=== PATIENT | male | born 1960 | race Caucasian/White ===

== ENCOUNTER 2019-01-27 05:49 | Inpatient (IN) | payer BC ==
[~2019-01-27 05:49] MED LIST: Buffered Lidocaine 1% SYRIN* 1 ML/SYRINGE INTRADERM ONE; Tranexamic Acid 1,000 MG in NS 0.9% 50 ML* (outpatient use) IV SCH
--- OUTSIDE RECORDS SUMMARY | 2019-01-27 05:52 | XMS REPORT | Continuity of Care Document ---
:1960 External Reference #:[id number] Author Name Maria G Lara Care Team Providers Name Role Phone Davidson Contreras MD Primary Care Physician Unavailable Payers Date Identification Numbers Payment Provider Subscriber Policy Number: [id number] [facility] Pipo Cardenas PayID: [id number] [address] [address] [place] [address] Advance Directives Description No Information Available Problems Date Description Provider Status Onset: 01/07/2019 Localized, primary osteoarthritis Jean Oliver MD Active Family History Date Family Member(s) Observation Comments General No Current Problems Social History Type Date Description Comments Sex Unknown 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3 kg/m2 Results Description No Information Available Procedures Description No Information Available Encounters Description No Information Available Plan of Treatment Future Appointment(s):02/09/2019 1:30 pm - Jean Oliver MD at [facility]01/07/2019 - Jean Oliver, MDM17.11 Unilateral primary osteoarthritis, right kneeFollow up:Follow up: 1 week before surgery
--- OUTSIDE RECORDS SUMMARY | 2019-01-27 05:52 | XMS REPORT | Continuity of Care Document ---
:1960 External Reference #:[id number] Author Name Jesse Belcher PA-C Address [address], [place] [address] Care Team Providers Name Role Phone Davidson Contreras MD Primary Care Physician Unavailable Payers Date Identification Numbers Payment Provider Subscriber Policy Number: [id number] [facility] Kevin Beck PayID: [id number] [address] [place] [address] Advance Directives Description No Information Available Problems Date Description Provider Status Onset: 01/07/2019 Localized, primary osteoarthritis Jean Oliver MD Active Family History Date Family Member(s) Observation Comments General No Current Problems Social History Type Date Description Comments Sex Unknown 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 Use Denies alcohol use Tobacco Use [...] BMI (Body Mass Index) 27.3 kg/m2 Results Test Date Facility Test Result H/L Range Note CBC Auto Diff 01/15/2019 [facility] White Blood 7.1 10^3/uL N 3.5-10.[address] [place] [address] [phone] Red Blood Count 4.99 10^6/uL N 4.00-5.40 Hemoglobin 15.3 g/dL N 14.0-18.0 Hematocrit 45 % N 42-52 Mean Corpuscular Volume 90 fL N 80-94 Mean Corpuscular Hemoglobin 31 pg N 27-31 Mean Corpuscular HGB Conc 34 g/dL N 31-36 Red Cell Distribution Width 13 % N 10.5-15 Platelet Count 227 10^3/uL N 150-450 Mean Platelet Volume 8.4 fL N 7.4-10.4 Abs Neutrophils 3.9 10^3/uL N 1.5-7.7 Abs Lymphocytes 2.4 10^3/uL N 1.0-4.8 Abs Monocytes 0.6 10^3/uL N 0-0.8 Abs Eosinophils 0.1 10^3/uL N 0-0.6 Abs Basophils 0.1 10^3/uL N 0-0.2 Abs Nucleated RBC 0 10^3/uL Granulocyte % 55.1 % Lymphocyte % 34.0 % Monocyte % 7.9 % Eosinophil % 1.7 % Basophil % 1.3 % Nucleated Red Blood Cells % 0.1 Urinalysis Profile 01/15/2019 [facility] Urine Color Yellow [address] [place] [address] [phone] Urine Appearance Cloudy Urine Specific [place] 1.013 N 1.010-1.030 Urine pH 5.0 N 5-9 Urine Urobilinogen Negative Negative Urine Ketones Negative Negative Urine Protein Negative Negative Urine Leukocytes Negative Negative Urine Blood Negative Negative Urine Nitrite Negative Negative Urine Bilirubin Negative Negative Urine Glucose Negative Negative Comp Metabolic Panel 01/15/2019 [facility] Sodium 139 mmol/L N 135-145 [address] [place] [address] [phone] Potassium 4.3 mmol/L N 3.5-5.0 Chloride 106 mmol/L N 101-111 Co2 Carbon Dioxide 27 mmol/L N 22-32 Anion Gap 6 mmol/L N 2-11 Glucose 95 mg/dL N 70-100 Blood Urea Nitrogen 14 mg/dL N 6-24 Creatinine 0.83 mg/dL N 0.67-1.17 BUN/Creatinine Ratio 16.9 N 8-20 Calcium 10.1 mg/dL N 8.6-10.3 Total Protein 7.1 g/dL N 6.4-8.9 Albumin 4.6 g/dL N 3.2-5.2 Globulin 2.5 g/dL N 2-4 Albumin/Globulin Ratio 1.8 N 1-3 Total Bilirubin 0.70 mg/dL N 0.2-1.0 Alkaline Phosphatase 84 U/L N 34-104 Alt 42 U/L N 7-52 Ast 25 U/L N 13-39 Egfr Non- 95.5 >60 Egfr 115.5 >60 1 Inr/Protime 01/15/2019 [facility] Inr 1.02 N 0.77-1.[address] [place], [place] [id number] [phone] Laboratory test 01/15/2019 [facility] Partial 42.8 seconds High 26.0-36.[address] [place] [address] Time PTT [phone] Type & Screen 01/15/2019 [facility] Patient O Positive [address] Blood Type [place], [place] [address] [phone] Antibody Screen NEGATIVE Urine Culture And 01/15/2019 [facility] Urine Culture SEE RESULT [address] [place] [address] [phone] 1 Because ethnic data is not always readily available, this report includes an eGFR for both -Americans and non- Americans. The National Kidney Disease Education Program (NKDEP) does not endorse the use of the MDRD equation for patients that are not between the ages of 18 and 70, are , have extremes of body size, muscle mass, or nutritional status, or are non- or non-. According to the National Kidney Foundation, irrespective of diagnosis, the stage of the disease is based on the level of kidney function: Stage Description GFR(mL/min/1.73 m(2)) 1 Kidney damage with normal or decreased GFR 90 2 Kidney damage with mild decrease in GFR 60-89 3 Moderate decrease in GFR 30-59 4 Severe decrease in GFR 15-29 5 Kidney failure <15 (or dialysis) 2 SEE RESULT BELOW Name: KEVIN BECK : [address]: Jean Oliver MD Acct: [id number] Unit: [id number] AGE: 58 Location: [facility] Re01/15/19 SEX: M Status: REG REF SPEC: [id number] DELIA: 01/15/19-1010 [facility] DR: Jean Oliver MD REQ: [id number] RECD: 01/15/19 STATUS: JESSICA WHIPPLE DR: Davidson Contreras MD _ SOURCE: URINE SPDESC: ORDERED: Urine Culture QUERIES: Urine Source: Random Procedure Result Reported Site Urine Culture Final 01/16/19- 821 ML No Growth (<1,000 CFU/mL) * - Main Lab . END OF REPORT DEPARTMENT OF PATHOLOGY, [address] [place] [address] Yuan Zendejas M.D. Director [facility] # [id number] Procedures Description No Information Available Encounters Type Date Location Provider Dx Diagnosis Office Visit 01/07/2019 Orthopedic Jean Ch M17.11 Unilateral primary 8:00a [facility] Oliver MD osteoarthritis, right knee Plan of Treatment Future Appointment(s):01/27/2019 7:30 am - Jesse Belcher PA-C at [facility]..01/27/2019 7:30 am - Jean Oliver MD at [facility]..02/09/2019 1:30 pm - Jean Oliver MD at [facility].01/07/2019 - Jean Oliver, MDM17.11 Unilateral primary osteoarthritis, right kneeFollow up:Follow up: 1 week before surgery
--- OUTSIDE RECORDS SUMMARY | 2019-01-27 05:52 | XMS REPORT | Continuity of Care Document ---
:1960 External Reference #:[id number] Author Name Maria G Lara Care Team Providers Name Role Phone Davidson Contreras MD Primary Care Physician Unavailable Payers Date Identification Numbers Payment Provider Subscriber Policy Number: [id number] 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
[2019-01-27] MEDS ORDERED: Dexamethasone IV* 4 MG/ML 1 ML (4 MG) IV SLOW PU ONE (06:00)
[2019-01-27] MEDS ORDERED: Lactated Ringers 1000 ML Bag* 1,000 ML IV SCH (06:00)
[2019-01-27] MEDS ORDERED: Gabapentin CAP(*) 300 MG PO ONE (06:00)
[2019-01-27] MEDS ORDERED: celeCOXIB CAP* 200 MG PO ONE (06:00)
[2019-01-27] MEDS ORDERED: Famotidine IV* 10 MG/ML 2 ML (20 mg) IV ONE (06:00)
[2019-01-27] MEDS ORDERED: Scopolamine 1.5 mg* PATCH TRANSDERM ONE (06:00)
[2019-01-27] MEDS ORDERED: Gabapentin CAP(*) 300 MG ONE (06:03)
[2019-01-27] MEDS ORDERED: ceFAZolin 2 GM PREMIX in ORs 2 GM/50 ML BAG IVPB ONE (06:03)
[2019-01-27] MEDS ORDERED: Dexamethasone IV* 4 MG/ML 1 ML (4 MG) ONE (06:03)
[2019-01-27] MEDS ORDERED: celeCOXIB CAP* 100 MG ONE (06:03)
[2019-01-27] MEDS ORDERED: Scopolamine 1.5 mg* PATCH ONE (06:03)
[2019-01-27] MEDS ORDERED: Famotidine IV* 10 MG/ML 2 ML (20 mg) ONE (06:04)
[2019-01-27] MEDS ORDERED: Buffered Lidocaine 1% SYRIN* 1 ML/SYRINGE INTRADERM ONE (06:04)
[2019-01-27] MEDS ORDERED: Midazolam* 1 MG/ML 2 ML VIAL (2 MG) ONE (07:07)
[2019-01-27] MEDS ORDERED: fentaNYL* 50 MCG/ML 2 ML VIAL (100 MCG VIAL) ONE ×5 (07:07→14:07)
[2019-01-27] MEDS ORDERED: oxyCODONE TAB* 5 MG TAB PO PRN (07:32)
[2019-01-27] MEDS ORDERED: Acetaminophen IV 1GM/100ML * 1,000 MG/100 ML VIAL IVPB ONE (07:32)
[2019-01-27] MEDS ORDERED: PROCHLORPERAZINE INJ 5 MG/ML 2 ML VIAL IV PRN (07:32)
[2019-01-27] MEDS ORDERED: Naloxone* 0.4 MG/ML 1 ML VIAL IV PRN (07:32)
[2019-01-27] MEDS ORDERED: fentaNYL* 50 MCG/ML 2 ML VIAL (100 MCG VIAL) IV PRN (07:32)
[2019-01-27] MEDS ORDERED: Propofol* 10 MG/ML 20 ML BTL ONE (07:38)
[2019-01-27] MEDS ORDERED: Lidocaine 2% PF * 5 ML VIAL ONE (07:38)
[2019-01-27] MEDS ORDERED: ROPIVACAINE 5 MG/ML 30 ML BTL (0.5%) ONE (08:42)
[2019-01-27] MEDS ORDERED: Bupivacaine 0.5% W/EPI SDV* 30 ML VIAL ONE (10:56)
[2019-01-27] MEDS ORDERED: KETAMINE HCL* 50 MG/ML 10 ML VIAL ONE (10:57)
[2019-01-27] MEDS ORDERED: Ondansetron INJ* 2 MG/ML VIAL ONE (12:59)
[2019-01-27] MEDS ORDERED: oxyCODONE/Acetamin 5/325 MG* TAB PO PRN (13:59)
[2019-01-27] MEDS ORDERED: Ondansetron INJ* 2 MG/ML VIAL IV PRN (13:59)
[2019-01-27] MEDS ORDERED: Morphine INJ* 2 MG/ML 1 ML SYRINGE (TWO MG - NEW SYRINGE VERSION) IV PRN (13:59)
[2019-01-27] MEDS ORDERED: traMADol TAB* 50 MG PO PRN (13:59)
[2019-01-27] MEDS ORDERED: Cyclobenzaprine TAB* 10 MG PO PRN (13:59)
[2019-01-27] MEDS ORDERED: Polyethylene Glycol 3350* 17 GM PACKET PO PRN (13:59)
[2019-01-27] MEDS ORDERED: Bisacodyl SUPP* 10 MG SUPP PR PRN (13:59)
[2019-01-27] MEDS ORDERED: Magnesium Hydroxide LIQ* 30 ML UDC PO PRN (13:59)
[2019-01-27] MEDS ORDERED: traZODone TAB* 50 MG TAB PO PRN (13:59)
[2019-01-27] MEDS ORDERED: diPHENhydraMINE IV* 50 MG/ML 1 ml VIAL (BENADRYL) IV PRN (13:59)
[2019-01-27] MEDS ORDERED: diPHENhydraMINE PO* 25 MG PO PRN (13:59)
[2019-01-27] MEDS ORDERED: Ondansetron ODT TAB* 4 MG PO PRN (13:59)
[2019-01-27] MEDS ORDERED: Acetaminophen IV 1GM/100ML * 100 ML ONE (14:07)
[2019-01-27] MEDS ORDERED: oxyCODONE TAB* 5 MG TAB ONE (15:06)
[2019-01-27] MEDS ORDERED: Morphine INJ* 2 MG/ML 1 ML SYRINGE (TWO MG - NEW SYRINGE VERSION) ONE (16:01)
[2019-01-27] MEDS: Lactated Ringers 1000 ML Bag* 1,000 ML IV SCH (16:08)
[2019-01-27] MEDS: Acetaminophen TAB* 325 MG PO SCH ×2 (17:33→20:56)
[2019-01-27] MEDS: oxyCODONE/Acetamin 5/325 MG* TAB PO PRN ×2 (18:11→23:58)
[2019-01-27] MEDS: ceFAZolin 1 GM in Dextrose (*) 1 GM/50 ML BAG IVPB SCH (18:11)
[2019-01-27] MEDS: Docusate CAP* 100 MG PO SCH (20:57)
[2019-01-27] MEDS: oxyCODONE TAB* 5 MG TAB PO PRN (20:57)
[2019-01-28] MEDS: Lactated Ringers 1000 ML Bag* 1,000 ML IV SCH (01:53)
[2019-01-28] MEDS: ceFAZolin 1 GM in Dextrose (*) 1 GM/50 ML BAG IVPB SCH ×2 (01:55→10:05)
[2019-01-28] MEDS: oxyCODONE/Acetamin 5/325 MG* TAB PO PRN ×3 (03:04→12:14)
[2019-01-28] MEDS: Acetaminophen TAB* 325 MG PO SCH ×2 (04:56→14:37)
[2019-01-28 05:39] LABS: Hematocrit 37 % (42-52); Hemoglobin 12.7 g/dl (14.0-18.0); Mean Platelet Volume 8.1 fL (7.4-10.4); Platelet Count 208 10^3/ul (150-450)
[2019-01-28 06:01] LABS: EGFR African American 118.8 (>60); EGFR Non-African American 98.2 (>60); Potassium 4.1 mmol/L (3.5-5.0)
[2019-01-28] MEDS: Docusate CAP* 100 MG PO SCH (07:55)
[2019-01-28] MEDS ORDERED: Vitamin THERAPEUTIC TAB PO SCH (09:00)
[2019-01-28] MEDS ORDERED: Apixaban* 2.5 MG TAB PO SCH (09:00)
[2019-01-28] MEDS: oxyCODONE TAB* 5 MG TAB PO PRN ×2 (10:06→14:34)
--- NOTE | 2019-01-28 10:57 | PN ---
Progress Note - Progress Note Date of Service: 01/28/19 SOAP: Subjective: []Pt seen at bedside. He feels well with well controlled right knee pain, Denies CP, SOB, dizziness or nausea. Confirms desires to DC home today. Objective: []General: Well appearing, NAD RLE: Right knee dressing CDI, thigh is soft, DF/PF intact, DP2+, sensation intact to light touch distally Calves supple and nontender without erythema, edema or palpable cords Assessment: []POD [address] Oliver Plan: []WBAT PT/OT eliquis 2.5 mg po BID x 30 days DC to home today, progressing well with PT Will change dressing prior to DC Vital Signs Temp 98.2 F 01/28/19 07:34 Pulse 72 01/28/19 07:34 Resp 16 01/28/19 10:06 BP 118/62 01/28/19 07:34 Pulse Ox 96 01/28/19 07:34 Intake & Output 01/27/19 01/28/19 01/28/19 18:59 06:59 18:59 Intake Total 1999 1694 720 Output Total 300 3600 Balance 1700 -1906 720 Intake: IV Fluids 1999 980 LR 2000 980 IVPB 54 ABX - CEFAZOLIN 54 Oral 660 720 Output: Baez 300 3600 Laboratory Last Values Hgb 12.7 g/dl (14.0-18.0) L 01/28/19 05:22 Hct 37 % (42-52) L 01/28/19 05:22 Plt Count 208 10^3/ul (150-450) 01/28/19 05:22 MPV 8.1 fL (7.4-10.4) 01/28/19 05:22 APTT 43.7 seconds (26.0-36.3) H 01/27/19 06:21 Sodium 135 mmol/L (135-145) 01/28/19 05:22 Potassium 4.1 mmol/L (3.5-5.0) 01/28/19 05:22 Chloride 103 mmol/L (101-111) 01/28/19 05:22 Carbon Dioxide 26 mmol/L (22-32) 01/28/19 05:22 Anion Gap 6 mmol/L (2-11) 01/28/19 05:22 BUN 13 mg/dL (6-24) 01/28/19 05:22 Creatinine 0.81 mg/dL (0.67-1.17) 01/28/19 05:22 Est GFR ( Amer) 118.8 (>60) 01/28/19 05:22 Est GFR (Non-Af Amer) 98.2 (>60) 01/28/19 05:22 BUN/Creatinine Ratio 16.0 (8-20) 01/28/19 05:22 Glucose 134 mg/dL (70-100) H 01/28/19 05:22 Calcium 9.0 mg/dL (8.6-10.3) 01/28/19 05:22
[2019-01-28 12:40] VITALS: BP 149/73
--- NOTE | 2019-01-28 22:19 | DS ---
AMENDED REPORT NOW INCLUDES DESIGNATED COSIGNER DISCHARGE SUMMARY: DATE OF ADMISSION: 01/27/19 DATE OF DISCHARGE: 01/28/19 SURGEON: Dr. Oliver.* (DICTATED BY ALEM SHAH) HISTORY: Mr. Cardenas is a 58-year-old male with years of increasingly severe right knee pain. He failed conservative management and elected to undergo a right total knee arthroplasty. HOSPITAL COURSE: The patient was admitted to [facility] on . He underwent a right total knee arthroplasty without complications. Postop day #1, he was well appearing, in no acute distress. Dressing was changed. Incision was clean, dry, and intact without erythema or discharge. Dorsiflexion and plantarflexion intact. DP pulse 2+. Sensation intact to light touch distally. Vital signs: Temperature 98.2, pulse 72, respiratory rate 16, blood pressure 118/62, pulse ox 96%. Hemoglobin 12.7, hematocrit 37. The patient was deemed to be medically and orthopedically stable for discharge home. DISCHARGE MEDICATIONS: Include: 1. Acetaminophen 975 mg p.o. q.8 hours p.r.n. 2. Eliquis 2.5 mg p.o. b.i.d. for 30 days. 3. Docusate 100 mg p.o. b.i.d. p.r.n. constipation. 4. Percocet 5/325 one to two tabs every 4 to 6 hours as needed for pain, max daily dose of 10 tablets. DISCHARGE INSTRUCTIONS: The patient is discharged to home. He is weightbearing as tolerated. He will attend outpatient physical therapy. DVT prophylaxis with Eliquis 2.5 mg every 12 hours for 4 weeks. Please see whether Eliquis increases bleeding tendency. Percocet 5/325 for pain. Follow up with Dr. Oliver in 14 to 17 days. Vignesh will be removed at this appointment. ALEM FIELDS [id number]/[facility] #: [id number] MTDD
--- NOTE | 2019-01-29 01:13 | OP ---
OPERATIVE REPORT: DATE OF OPERATION: 01/27/19 DATE OF : 62 SURGEON: Jean Oliver MD ASSISTANTS: 1. ALEM Santamaria 2. Cheryl Bai. A physician digital marketing assistant was required for the length of procedure for assistance with positioning, retraction, and closure. ANESTHESIOLOGIST: Dr. Neetu Joseph. ANESTHESIA: General anesthesia, local anesthesia using 25 cc of Marcaine 0.5% with epinephrine. Regional nerve block as well with adductor canal block performed by Dr. Joseph. PRE-OP DIAGNOSIS: Right knee osteoarthritis. POST-OP DIAGNOSIS: Right knee osteoarthritis. OPERATIVE PROCEDURE: Right total knee arthroplasty. ANTIBIOTICS: Ancef 2 g IV. IV FLUIDS: See Anesthesia note. TOURNIQUET TIME: 120 minutes at 300 mmHg. YVQT-UI-PITD TIME: 130 minutes. SPECIMEN: Bone cuts from tibia, femur and patella sent to Pathology. IMPLANTS: DePuy Richardson and Richardson ATTUNE total knee arthroplasty implants. Cemented. Tibia fixed bearing. Femur size 5, tibia size 4, patella size 38 mm , implant polyethylene 8 mm. I also used cement from [employer], [employer]. COMPLICATIONS: None. ESTIMATED BLOOD LOSS: Minimal. 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 Discussed with the patient pros and cons of operative and nonoperative management, risks and potential complications of surgery. The patient opted to move forward with surgery. DESCRIPTION OF PROCEDURE: In the preoperative holding, the patient signed a written consent. Operative extremities were marked in preoperative holding. Dr. Joseph performed a regional nerve block, adductor canal block in preoperative holding. The patient was taken to the operating room and placed supine on operating room table. Sedated and intubated. Tourniquet was placed about the proximal right thigh. The right lower extremity was prepped with chlorhexidine and then ChloraPrep. It was then draped. A [facility] Knee positioner system was put into place. I should state that before prep and drape, I had placed a blanket bump under the patient's right hemipelvis. Surgical time-out performed. Esmarch applied and tourniquet elevated to 300 mmHg. I made a standard anterior midline longitudinal skin incision. I dissected down to extensor mechanism. Marked extensor mechanism and then made my medial parapatellar arthrotomy incision. I reflected a capsule off the anterior, medial and lateral tibial plateaus. I partially everted the patella. Removed osteophytes with rongeur and removed much of the fat from deep to the patellar tendon. Patella nicely everted. I everted patella and then flexed knee. Removed ACL. I removed some osteophytes with a rongeur from the femur. The patient had significant osteophytes at the medial and lateral femur and cartilage wear was particularly notable about the medial femoral condyle. I noted the position of the PCL and marked my entrance point for femoral drill. I placed the drill to ream and ream the femoral canal. Irrigated and sucked. Placed a distal femoral cutting guide. Removed 9 mm of the distal femur in 5 degrees of valgus. Excellent cut. Sized my distal femur to a size 5, placed 4-in-1 cutting guide and made anteroposterior, anterior chamfer and posterior chamfer cuts. Removed osteophytes with rongeur. I used external tibial alignment guide, set on 7 degrees of posterior slope. I pinned it in place such that I would be removing 4 mm from the low medial compartment side of the knee. Examination of preoperative radiograph and intraoperative findings showed that there was just some mild varus to this knee , not significantly different angulation from anatomic. I placed 3 pins in the tibial cutting guide. Confirmed the adequacy of the guide in the coronal and sagittal planes. I cut the proximal tibia. I removed medial and lateral meniscus after placing laminar spreaders as well as some posterior osteophytes from the femur. I placed a Dogbone spacer. I placed a 6 mm spacer. It showed that the flexion and extension gaps were symmetric. Nice soft tissue balancing. A good alignment of the tibial cut. I placed #5 trial on the femur and drilled the femur. I had also filed on the anterior chamfer cut centrally. I sized tibia to a size 4. Removed osteophytes. Placed guide and then drilled and punched the proximal tibia. Fully extended the knee. Measured the patella to be approximately 23 mm deep. I cut the patella using free hand technique, such that it was 13 mm in depth symmetrically. Measured patella to a 38 mm size. Drilled 3 holes. I confirmed appropriateness of button fit. Removed osteophytes. I trailed components and they showed a stable knee. I irrigated knee. I placed a bone in the femoral canal. Changed gloves. Mixed cement. I placed tibial component, then femoral component with cement. Placed a trial 6 mm insert. I placed the patella button with cement. Waited for cement to fully harden. Irrigated. Trialed several sizes and decided on an 8-mm insert. This produced excellent range of motion 0 to 135 degrees of flexion. Stable ligamentously. No laxity with varus and valgus stress testing in 90 degrees. In 30 degrees of flexion, there was no medial opening. Perhaps 3 mm of lateral opening, appropriate. Irrigation. A closure of the medial parapatellar arthrotomy with figure-of- eight stitches using Ethibond 1 and then Vicryl 0 suture. Irrigation. Closure of deep and then superficial subcutaneous tissue with buried simple stitches using Vicryl 2- 0 suture. Closure of the skin with queta. Local anesthesia was placed. It was first placed with the parapatellar arthrotomy partially closed. Medial lateral and hopefully some posterior capsule. Some additional local was placed in the subcutaneous tissues for a total of 25 cc. Dressings consisted of Xeroform, 4x4s, ABDs, sterile Webril and then Matt bandage from foot to proximal thigh. The tourniquet was dropped in 120 minutes exactly. A cooling unit was placed on the knee. The patient was awakened, extubated and brought to the PACU. DISPOSITION: The patient will be admitted postoperatively for pain control, IV and oral, physical therapy, medical management. He will be discharged home when stable. The patient will be on Eliquis 2.5 mg p.o. b.i.d. x4 weeks postoperatively. He will receive Percocet as needed for pain control at home. He was to receive IV antibiotics, Ancef 1 g IV q.8 hours x24 hours postop. The patient will see me in clinic, approximately 17 days postoperatively for a wound check and removal of queta. The patient will start outpatient physical therapy immediately. [id number]/[facility] #: [id number] ANNE
[2019-01-30] MEDS ORDERED: Scopolamine PATCH Remove* 1 NOTE MISC PATCH OFF ONE (06:00)
== END 2019-01-28 14:45 | disposition home or self-care (01) | DRG 302 ==
LOC: AA 05:49 → SSU 15:37
PROVIDERS: ADMIT Orthopaedic Surgery; ATTEND Orthopaedic Surgery
PROC: 0SRC0J9 Replacement of Right Knee Joint with Synthetic Substitute, Cemented, Open Approach (ICD-10-PCS; principal; 2019-01-27 07:30)
DX: M17.0 Bilateral primary osteoarthritis of knee (principal); M25.761 Osteophyte, right knee; E04.1 Nontoxic single thyroid nodule; R25.1 Tremor, unspecified; Z81.2 Family history of tobacco abuse and dependence; Z82.5 Family history of asthma and other chronic lower respiratory diseases; Z80.1 Family history of malignant neoplasm of trachea, bronchus and lung
CPT/HCPCS: 36415; 80048; 85014; 85018; 85049; 85730; A9270-GY; G8978-GP-CK; G8979-GP-CI; J0690; J1100; J2250; J2270; J2405; J2704; J2795; J3010

== ENCOUNTER 2019-04-14 05:52 | Day surgery (SDC) | payer BC ==
[~2019-04-14 05:52] MED LIST changes: -Tranexamic Acid 1,000 MG in NS 0.9% 50 ML* (outpatient use) IV SCH
[2019-04-14] MEDS ORDERED: Lactated Ringers 1000 ML Bag* 1,000 ML IV SCH (06:00)
[2019-04-14] MEDS ORDERED: Buffered Lidocaine 1% SYRIN* 1 ML/SYRINGE INTRADERM ONE (06:08)
[2019-04-14] MEDS ORDERED: Propofol* 10 MG/ML 20 ML BTL ONE ×2 (06:41)
[2019-04-14] MEDS ORDERED: Lidocaine 2% PF * 5 ML VIAL ONE ×2 (06:41→06:46)
[2019-04-14] MEDS ORDERED: ROPIVACAINE 5 MG/ML 30 ML BTL (0.5%) ONE (06:46)
[2019-04-14] MEDS ORDERED: Midazolam* 1 MG/ML 2 ML VIAL (2 MG) ONE (06:47)
[2019-04-14] MEDS ORDERED: fentaNYL* 50 MCG/ML 2 ML VIAL (100 MCG VIAL) ONE ×2 (06:47→08:19)
[2019-04-14] MEDS ORDERED: Bupivacaine 0.5% W/EPI SDV* 30 ML VIAL ONE (06:53)
[2019-04-14] MEDS ORDERED: Ketorolac INJ* 30 MG/ML 1 ML VIAL ONE (07:35)
[2019-04-14] MEDS ORDERED: Dexamethasone IV* 4 MG/ML 1 ML (4 MG) ONE (07:35)
[2019-04-14] MEDS ORDERED: Ondansetron INJ* 2 MG/ML VIAL ONE (07:35)
[2019-04-14] MEDS ORDERED: Acetaminophen TAB* 325 MG PO PRN (08:06)
[2019-04-14] MEDS ORDERED: Naloxone* 0.4 MG/ML 1 ML VIAL IV PRN (08:06)
[2019-04-14] MEDS: fentaNYL* 50 MCG/ML 2 ML VIAL (100 MCG VIAL) IV PRN ×4 (08:20→08:38)
[2019-04-14] MEDS ORDERED: oxyCODONE/Acetamin 5/325 MG* TAB ONE (08:33)
[2019-04-14] MEDS ORDERED: Acetaminophen TAB* 325 MG ONE (09:11)
[2019-04-14 09:17] VITALS: BP 144/88
--- NOTE | 2019-04-14 23:47 | OP ---
OPERATIVE REPORT: DATE OF OPERATION: 04/14/19 DATE OF : 62 SURGEON: Jean Oliver MD UPPER AND BOTTOM LACER HAND: ALEM Santamaria A physician family practice physician assistant was required for the length of this procedure for assistance with patient posit ioning. ANESTHESIOLOGIST: Dr. Marcela Magdaleno. ANESTHESIA: Monitored anesthesia care, saphenous regional nerve block. PRE-OP DIAGNOSES: 1. Status post right total knee arthroplasty, 01/27/19. 2. Stiff arthrofibrotic right total knee arthroplasty. POST-OP DIAGNOSES: 1. Status post right total knee arthroplasty, 01/27/19. 2. Stiff arthrofibrotic right total knee arthroplasty. OPERATIVE PROCEDURE: Manipulation under anesthesia, right total knee arthroplasty. ANTIBIOTICS: None. IV FLUIDS: See Anesthesia note. TIME OF PROCEDURE: 11 minutes. 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 Preoperatively, his passive ra nge of motion was 0 to 135 degrees of flexion. Postoperatively, the patient was slow to regain range of motion. He admits that early in the postope rative course, he was not doing much in the way of exercises or physical therapy. The patient may gaytan ve purposely avoided taking much in the way of narcotics leading to some more limited activity. The patient was noted to have slightly decreased range of motion at his 2-week clinic visit, which did no t improve significantly at his 6 weeks' clinic visit, causing concern on my part. I spoke extensivel y with the patient's physical therapist and the patient tried very hard in physical therapy to improv e his range of motion without significant success. See my history and physical for full history. Th e patient opted for manipulation. Discussed risks and potential complications with him. DESCRIPTION OF PROCEDURE: In the preoperative holding, the patient signed a written consent. Operat chaya extremity was marked in preoperative holding. The patient underwent a saphenous nerve block by Dr. Magdaleno in preoperative holding. The patient wa s taken back to the operating room and placed supine on operating room table. The patient was sedate d. The patient started out as monitored anesthesia care, although an LMA may have been placed. The patient was relaxed during this procedure prior to my manipulation. Surgical time-out performed. Prior to manipulating the patient's right knee, I obtained a range of motion. With an family practice physician assistant hold ing up the lower leg, I found that the extension of the right knee was 8 degrees shy of full extensio n, so he had an 8-degree flexion contracture. When I flexed the hip to 90 degrees and allowed the kne e to flex with the benefit of gravity, the flexion was 70 degrees. This put the patient's range of m otion without any manipulation, without any force, to be 8 to 70 degrees of flexion. I next performed manipulation. I flexed the hip to 90 degrees. The several different techniques, we ll described. These were done safely to minimize the risk of fracture. I then again measured with a goniometer post-manipulation ranges of motion. The range of motion clearly met 0 degrees of flexion before full extension of the knee. Then, with the knee flexed only with the force of gravity, I shannon sured the knee flexion to be 112 degrees. This was less than the contralateral left knee, but still substantial. With some zanzv-ze-mgexlo passive pressure from the knee, I was able to easily flex the knee to 0 to 138 degrees of flexion. It should be noted that with more significant manipulation, I could certainly flex the knee past 140 degrees and get the heel to touch the buttock. When I did my manipulation, there was the audible and palpable breaking up of scar tissue. There was no audible or palpable concern about a fracture. Anesthesia had relaxed the patient just prior to my manipulating. For a summary, pre-manipulation, the patient's range of motion with gravity was 8 to 70 degrees of fl exion. Post-manipulation, range of motion to gravity was 0 to 112 degrees of flexion. With some mil d help, with passive range of motion, the patient's post-manipulation range of motion was 0 to 138 de grees of flexion. The patient was transferred back to the stretcher, lightened up sedation, and transferred to the PACU . It should be noted that in the operating room, the patient received a dose of Toradol, Tylenol as wel l as Decadron. DISPOSITION: At my request, the patient had scheduled outpatient physical therapy on the day of surg brayden, postoperative day 1 and postoperative day 2. I prescribed the patient a new Percocet prescripti on as well as a Medrol Dosepak. I instructed the patient to resume naproxen after he finishes the Me drol Dosepak. I imparted the patient and his the importance of aggressive early constant range of motion to maintain the gains we accomplished during this operative procedure. The patient will fo llow up with me in approximately 1 week postoperatively in clinic. It will really be more like 4 to 5 days postoperatively. [id number]/[facility] #: [id number]
== END 2019-04-14 09:19 | disposition home or self-care (01) ==
LOC: OR 05:52
PROVIDERS: ATTEND Orthopaedic Surgery
DX: T84.82XA Fibrosis due to internal orthopedic prosthetic devices, implants and grafts, initial encounter (principal); Z96.651 Presence of right artificial knee joint; G89.18 Other acute postprocedural pain; M17.0 Bilateral primary osteoarthritis of knee
CPT/HCPCS: A9270-GY; J1100; J1885; J2250; J2405; J2704; J2795; J3010

== ENCOUNTER 2019-04-18 23:36 | Emergency (ER) | payer BC ==
--- OUTSIDE RECORDS SUMMARY | 2019-04-18 23:48 | XMS REPORT | Continuity of Care Document ---
:1960 External Reference #:[id number] Author Name SaiJolene chua Care Team Providers Name Role Phone Davidson Contreras MD Primary Care Physician Unavailable Payers Date Identification Numbers Payment Provider Subscriber Policy Number: [id number] [facility] Kevin Beck PayID: [id number] [address] [address] [place] [address] Problems Active Problems Provider Date Localized, primary osteoarthritis Jean Oliver MD Onset: 01/07/2019 Family History Date Family Member(s) Observation Comments General No Current Problems Social History Type Date Description Comments Sex Unknown Lives With 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 ETOH Use Denies alcohol use Tobacco Use Start: Unknown Patient has never smoked Smoking Status Reviewed: 04/08/19 Patient has never smoked Exercise Type/Frequency Exercises sporadically Allergies, Adverse Reactions, Alerts Description No Known Drug Allergies Medications Active Medications SIG Qnty Indications Ordering Provider Date Naproxen 1 by mouth twice 60tabs [facility] 03/16/2019 500mg Tablets a day as needed MD Melody pain History Medications Colace 1 tab every 12 hours 90caps [facility] 01/28/2019 - 100mg Capsules as needed for MD Melody 03/15/2019 constipation Eliquis 1 tab by mouth every 60tabs Jean 01/28/2019 - 2.5mg Tablets 12 hours for 30 days MD Melody 03/15/2019 Oxycodone-Acetaminop 1 by mouth every 4-6 60tabs [facility] 01/28/2019 - hen hours as needed for MD Melody 04/07/2019 5-325mg Tablets post-op pain. No Active Unknown 01/07/2019 - Medications 01/28/2019 Medications Administered in Office Medication SIG Qnty Indications Ordering Provider Date Depomedrol 40MG Jean Oliver MD 03/16/2019 Injection Vital Signs Date Vital Result Comment 04/08/2019 8:11am Height 69 inches 5'9" Weight 190.00 lb Heart Rate 70 /min BP Systolic 128 mmHg BP Diastolic 74 mmHg Respiratory Rate 12 /min Pain Level 0 Increases with activity BMI (Body Mass Index) 28.1 kg/m2 03/16/2019 8:15am Height 69 inches 5'9" Weight 190.00 lb Heart Rate 70 /min BP Systolic 124 mmHg BP Diastolic 70 mmHg Respiratory Rate 12 /min Pain Level 0 BMI (Body Mass Index) 28.1 kg/m2 02/09/2019 1:28pm Height 69 inches 5'9" Weight 191.00 lb BP Systolic 120 mmHg BP Diastolic 64 mmHg Body Temperature 98.7 F Pain Level 2 BMI (Body Mass Index) 28.2 kg/m2 01/07/2019 8:26am Height 69 inches 5'9" Weight 185.00 lb Heart Rate 73 /min BP Systolic 120 mmHg BP Diastolic 78 mmHg Respiratory Rate 18 /min Body Temperature 98.0 F Pain Level 6 BMI (Body Mass Index) 27.3 kg/m2 Results Test Date Facility Test Result H/L Range Note Xray 03/16/2019 [facility] Knee 3 Views <pending> [address] [place] [address] [phone] CBC Auto Diff 01/15/2019 [facility] White Blood 7.1 10^3/uL N 3.5-10.[address] [place] [address] [phone] Red Blood Count 4.99 10^6/uL N 4.00-5.40 [...] Blood Cells % 0.1 Urinalysis Profile 01/15/2019 [facility] Urine Color Yellow [address] [place] [address] [phone] Urine Appearance Cloudy Urine Specific Cascade 1.013 N 1.010-1.030 Urine pH 5.0 N 5-9 Urine Urobilinogen Negative Negative Urine Ketones Negative Negative Urine Protein Negative Negative Urine Leukocytes Negative Negative Urine Blood Negative Negative Urine Nitrite Negative Negative Urine Bilirubin Negative Negative Urine Glucose Negative Negative Comp Metabolic Panel 01/15/2019 [facility] Sodium 139 mmol/L N 135-145 [address] [place] [address] [phone] Potassium 4.3 mmol/L N 3.5-5.0 Chloride 106 [...] >60 Egfr 115.5 >60 1 Inr/Protime 01/15/2019 [facility] Inr 1.02 N 0.77-1.02 [address] [place] [address] [phone] Laboratory test 01/15/2019 [facility] Partial 42.8 seconds High 26.0-36.[address] [place] [address] Time PTT [phone] Type & Screen 01/15/2019 [facility] Patient O Positive [address] Blood Type [place], [place] [id number] [phone] Antibody Screen NEGATIVE Urine Culture And 01/15/2019 [facility] Urine Culture SEE RESULT [address] [place] [address] [phone] 1 Because ethnic data is not always [...] [address]: Jean Oliver MD Acct: [id number] Unit: [id number] AGE: 58 Location: [facility] Re01/15/19 SEX: M Status: REG REF SPEC: [id number] DELIA: 01/15/19-1010 [facility] DR: Jean Oliver MD REQ: [id number] RECD: 01/15/19 STATUS: JESSICA WHIPPLE DR: Davidson Contreras MD _ SOURCE: URINE SPDESC: ORDERED: Urine Culture QUERIES: Urine Source: Random Procedure Result Reported Site Urine Culture Final 01/16/19- 821 ML No Growth (<1,000 CFU/mL) * ML - Main Lab . END OF REPORT DEPARTMENT OF PATHOLOGY, [address] [place] [address] Yuan Zendejas M.D. Director [facility] # [id number] Procedures Date Code Description Status 03/16/2019 27097 Inject/Drain Joint/Bursa Major W/O US Completed 01/27/2019 26973 TKR Total Knee Replacement Completed 01/27/2019 50321 TKR Total Knee Replacement Completed 01/15/2019 47471 EKG, Interpretation Only Completed Encounters Type Date Location Provider Dx Diagnosis Office Visit 01/07/2019 [facility] M17.11 Unilateral primary 8:[facility] Oliver MD osteoarthritis, right knee
[2019-04-19] MEDS ORDERED: NS 0.9% 1000 ML** 1,000 ML IV ONE (00:52)
[2019-04-19] MEDS ORDERED: Metoclopramide IV* 5 MG/ML 2 ML VIAL IV SLOW PU ONE (00:52)
[2019-04-19] MEDS ORDERED: Ketorolac INJ* 30 MG/ML 1 ML VIAL IV PUSH ONE (00:53)
[2019-04-19 01:40] LABS: ABS Basophils 0.1 10^3/ul (0-0.2); ABS Lymphocytes 1.6 10^3/ul (1.0-4.8); ABS Monocytes 1.3 10^3/ul (0-0.8); ABS Neutrophils 13.1 10^3/ul (1.5-7.7); Eosinophil % 0.2 %; Hematocrit 41 % (42-52); Hemoglobin 14.1 g/dL (14.0-18.0); Lymphocyte % 9.7 %; Mean Corpuscular HGB Conc 34 g/dL (31-36); Mean Corpuscular Hemoglobin 30 pg (27-31); Mean Corpuscular Volume 86 fL (80-94); Mean Platelet Volume 7.9 fL (7.4-10.4); Platelet Count 279 10^3/uL (150-450); Red Cell Distribution Width 14 % (10.5-15); White Blood Count 16.1 10^3/uL (3.5-10.8)
[2019-04-19 01:59] LABS: Albumin 4.2 g/dL (3.2-5.2); Albumin/Globulin Ratio 1.4 (1-3); BUN/Creatinine Ratio 21.3 (8-20); C Reactive Protein 11.03 mg/L (<8.01); Calcium 9.6 mg/dL (8.6-10.3); EGFR African American 129.9 (>60); EGFR Non-African American 107.3 (>60); Globulin 2.9 g/dL (2-4); Potassium 3.8 mmol/L (3.5-5.0); Total Bilirubin 1.2 mg/dL (0.2-1.0); Total Protein 7.1 g/dL (6.4-8.9)
[2019-04-19] MEDS ORDERED: Iohexol 300* (CONTRAST) 10 ML SDV IV ONE (02:11)
--- NOTE | 2019-04-19 04:20 | ED ---
GI/ HPI - HPI Summary HPI Summary: Patient is a 58 y/o M presenting to ED with complaints of abdominal pain, N/V, constipation for the past four days. He states that he had right knee surgery four days ago in the morning, was discharged to home the same day. Sx onset in the evening of the same day. He states that after being discharged, he had been taking oxycodone for pain, switched to tramadol two days ago. However, he denies taking any pain medications recently. On triage, pain is rated 7/10, nothing is noted to aggravate/alleviate Sx. Home medications and allergies are reviewed. - History of Current Complaint Chief Complaint: EDAbdPain Time Seen by Provider: 04/19/19 00:37 Stated Complaint: ABD PAIN/VOMITING PER PT Hx Obtained From: Patient Onset/Duration: Started Days Ago - four days ago, Still Present Timing: Constant, Lasting Days - four days ago Severity: Severe Current Severity: Severe Pain Intensity: 7 Associated Signs and Symptoms: Positive: Nausea, Vomiting, Constipation, Abdominal Pain Aggravating Factor(s): Nothing Alleviating Factor(s): Nothing - Additional Pertinent History Primary Care Physician: TADEO - Allergy/Home Medications Allergies/Adverse Reactions: Allergies Allergy/AdvReac Type Severity Reaction Status Date / Time No Known Allergies Allergy Verified 04/18/19 23:40 PMH/Surg Hx/FS Hx/Imm Hx Musculoskeletal History: Reports: Hx Arthritis - osteoarthritis, bone spurs in left knees Sensory History: Reports: Hx Contacts or Glasses - glasses Denies: Hx Hearing Aid Opthamlomology History: Reports: Hx Contacts or Glasses - glasses - Cancer History Hx Chemotherapy: No - Surgical History Surgery Procedure, Year, and Place: 01/2019 right total knee replacement Hx Anesthesia Reactions: No Infectious Disease History: No Infectious Disease History: Denies: Traveled Outside the [place] in Last 30 Days - Family History Known Family History: Positive: Renal Disease - asthma - Social History Alcohol Use: Occasionally Substance Use Type: Reports: None Smoking Status (MU): Never Smoked Tobacco Review of Systems Negative: Fever - ON VITALS, TEMP IS 98.2 F Gastrointestinal: Other - POSITIVE - CONSTIPATION Positive: Abdominal Pain, Vomiting, Nausea All Other Systems Reviewed And Are Negative: Yes Physical Exam - Summary Physical Exam Summary: VITAL SIGNS: Reviewed. GENERAL: Patient is a well-developed and nourished male who is lying comfortable in the stretcher. Patient is not in any acute respiratory distress. HEAD AND FACE: No signs of trauma. No ecchymosis, hematomas or skull depressions. No sinus tenderness. EYES: PERRLA, EOMI x 2, No injected conjunctiva, no nystagmus. EARS: Hearing grossly intact. Ear canals and tympanic membranes are within normal limits. MOUTH: Oropharynx within normal limits. NECK: Supple, trachea is midline, no adenopathy, no JVD, no carotid bruit, no c- spine tenderness, neck with full ROM CHEST: Symmetric, no tenderness at palpation LUNGS: Clear to auscultation bilaterally. No wheezing or crackles. CVS: Regular rate and rhythm, S1 and S2 present, no murmurs or gallops appreciated. ABDOMEN: Soft, mild diffuse tenderness. No signs of distention. No rebound no guarding, and no masses palpated. Bowel sounds are hypoactive. EXTREMITIES: FROM in all major joints, no edema, no cyanosis or clubbing. NEURO: Alert and oriented x 3. No acute neurological deficits. Speech is normal and follows commands. SKIN: Dry and warm Triage Information Reviewed: Yes Vital Signs On Initial Exam: Initial Vitals Temp Pulse Resp BP Pulse Ox 98.2 F 62 16 161/96 97 04/18/19 23:38 04/18/19 23:38 04/18/19 23:38 04/18/19 23:38 04/18/19 23:38 Vital Signs Reviewed: Yes Diagnostics - Vital Signs Vital Signs Temp Pulse Resp BP Pulse Ox 04/19/19 02:00 68 94 04/19/19 01:01 76 81 04/19/19 00:59 58 161/84 80 04/19/19 00:30 51 138/85 95 04/19/19 00:28 64 96 04/18/19 23:38 98.2 F 62 16 161/96 97 - Laboratory Lab Results: Lab Results 04/19/19 04/19/19 04/19/19 Range/Units 01:26 01:27 01:27 WBC 16.1 H (3.5-10.8) 10^3/uL RBC 4.80 (4.18-5.48) 10^6 /uL Hgb 14.1 (14.0-18.0) g/dL Hct 41 L (42-52) % MCV 86 (80-94) fL MCH 30 (27-31) pg MCHC 34 (31-36) g/dL RDW 14 (10.5-15) % Plt Count 279 (150-450) 10^3/uL MPV 7.9 (7.4-10.4) fL Neut % (Auto) 81.2 % Lymph % (Auto) 9.7 % Juab % (Auto) 8.3 % Eos % (Auto) 0.2 % Baso % (Auto) 0.6 % Absolute Neuts (auto) 13.1 H (1.5-7.7) 10^3/ul Absolute Lymphs (auto) 1.6 (1.0-4.8) 10^3/ul Absolute Monos (auto) 1.3 H (0-0.8) 10^3/ul Absolute Eos (auto) 0.0 (0-0.6) 10^3/ul Absolute Basos (auto) 0.1 (0-0.2) 10^3/ul Absolute Nucleated RBC 0.0 10^3/ul Nucleated RBC % 0.0 Sodium 134 L (135-145) mmol/L Potassium 3.8 (3.5-5.0) mmol/L Chloride 99 L (101-111) mmol/L Carbon Dioxide 26 (22-32) mmol/L Anion Gap 9 (2-11) mmol/L BUN 16 (6-24) mg/dL Creatinine 0.75 (0.67-1.17) mg/dL Est GFR ( Amer) 129.9 (>60) Est GFR (Non-Af Amer) 107.3 (>60) BUN/Creatinine Ratio 21.3 H (8-20) Glucose 145 H (70-100) mg/dL Lactic Acid 0.8 (0.5-2.0) mmol/L Calcium 9.6 (8.6-10.3) mg/dL Magnesium 2.0 (1.9-2.7) mg/dL Total Bilirubin 1.20 H (0.2-1.0) mg/dL AST 12 L (13-39) U/L ALT 23 (7-52) U/L Alkaline Phosphatase 84 (34-104) U/L C-Reactive Protein 11.03 H (<8.01) mg/L Total Protein 7.1 (6.4-8.9) g/dL Albumin 4.2 (3.2-5.2) g/dL Globulin 2.9 (2-4) g/dL Albumin/Globulin Ratio 1.4 (1-3) Amylase 36 (29-103) U/L Lipase 13 (11.0-82.0) U/L Result Diagrams: 04/19/19 01:27 04/19/19 01:27 Lab Statement: Any lab studies that have been ordered have been reviewed, and results considered in the medical decision making process. - CT ABD/PEL CT CT Interpretation Completed By: Radiologist Summary of CT Findings: IMPRESSION: 1. There is mild wall thickening in the duodenum, cannot exclude mild. duodenitis. 2. There is colonic diverticulosis without evidence for acute diverticulitis. THIS REPORT WAS REVIEWED BY DR. ETIENNE. BONNIE Course/Dx - Course Course Of Treatment: Patient is a 58 y/o M presenting to ED with complaints of abdominal pain, N/V, constipation for the past four days. He states that he had right knee surgery four days ago in the morning, was discharged to home the same day. Sx onset in the evening of the same day. He states that after being discharged, he had been taking oxycodone for pain, switched to tramadol two days ago. However, he denies taking any pain medications recently. On physical exam, mild diffuse abdominal tenderness and hypoactive bowel sounds are noted. Labs showed WBC 16.1, Hct 41, absolute neuts 13.1, absolute monos 1.3, sodium 134, chloride 99, BUN/creatinine ratio 21.3, glucose 145, lactic acid 0.8, total bilirubin 1.2, CRP 11.03, lipase 13, amylase 36, AST 12, ALT 23, alk phos 84. During ED course, patient received fluids, reglan 10 mg IV, toradol [address] ABD/PEL IMPRESSION: 1. There is mild wall thickening in the duodenum, cannot exclude mild. duodenitis. 2. There is colonic diverticulosis without evidence for acute diverticulitis. - Diagnoses Provider Diagnoses: Constipation, Duodenitis Discharge - Sign-Out/Discharge Documenting (check all that apply): Patient Departure - discharge Patient Received Moderate/Deep Sedation with Procedure: No - Discharge Plan Condition: Stable Disposition: HOME Prescriptions: Metoclopramide TAB* [Reglan TAB*] 10 mg PO Q6H PRN #20 tab PRN Reason: Nausea/Vomiting Pantoprazole TAB * [Protonix TAB*] 40 mg PO DAILY #30 tab Patient Education Materials: Constipation (ED), Duodenitis (ED) Referrals: Davidson Contreras MD [Primary Care Provider] - 3 Days Additional Instructions: PLEASE RETURN TO THE ED IMMEDIATELY FOR WORSENING OR CONCERNING SYMPTOMS. FOLLOW UP WITH YOUR PRIMARY CARE PHYSICIAN WITHIN THREE DAYS. - Billing Disposition and Condition Condition: STABLE Disposition: Home - Attestation Statements Document Initiated by Bijal: Yes Documenting Scribe: MONTANA HAYES Provider For Whom Juanibsunshine is Documenting (Include Credential): MELVA ETIENNE MD Scribe Attestation: MONTANA Randhawa, scribed for MELVA ETIENNE MD on 04/19/19 at 0615. Scribe Documentation Reviewed: Yes Provider Attestation: The documentation as recorded by the MONTANA capellan accurately reflects the service I personally performed and the decisions made by me, MELVA ETIENNE MD Status of Scribe Document: Viewed
[2019-04-19 04:47] LABS: Urine Appearance Clear; Urine Bilirubin Negative (Negative); Urine Blood Negative (Negative); Urine Color Yellow; Urine Glucose Negative (Negative); Urine Ketones 1+ (Negative); Urine Nitrite Negative (Negative); Urine Protein Negative (Negative); Urine Specific Gravity 1.047 (1.010-1.030); Urine Urobilinogen Negative (Negative)
[2019-04-19] MEDS ORDERED: Bisacodyl SUPP* 10 MG SUPP PR ONE (04:48)
[2019-04-19] MEDS ORDERED: Magnesium CITRATE* 300 ML BTL PO ONE (04:48)
[2019-04-19 05:05] VITALS: BP 138/84
== END 2019-04-19 05:04 | disposition home or self-care (01) ==
LOC: ED 23:36
DX: K59.00 Constipation, unspecified (principal); K29.80 Duodenitis without bleeding; K57.30 Diverticulosis of large intestine without perforation or abscess without bleeding; R11.2 Nausea with vomiting, unspecified; Z96.651 Presence of right artificial knee joint
CPT/HCPCS: 36415; 74177; 80053; 81003; 82150; 83605; 83690; 83735; 85025; 86140; 96361; 96374; 96375; 99283; A9270-GY; J1885; J2765; Q9967

== ENCOUNTER 2019-05-09 11:14 | Emergency (ER) | payer BC ==
--- OUTSIDE RECORDS SUMMARY | 2019-05-09 11:31 | XMS REPORT | Continuity of Care Document ---
:1960 External Reference #:[id number] Author Name RejiTiagorory Care Team Providers Name Role Phone Davidson Contreras MD Primary Care Physician Unavailable Payers Date Identification Numbers Payment Provider Subscriber Policy Number: [id number] [facility] Kevin Beck PayID: [id number] [address] [address] [place] [address] Problems Active Problems Provider Date Localized, primary osteoarthritis Jean Oliver MD Onset: 01/07/2019 Aftercare following joint replacement Jean Oliver MD Onset: 2018 surgery Knee stiff Jean Oliver MD Onset: 05/06/2019 Family History Date Family Member(s) Observation Comments General No Current Problems Social History Type Date Description Comments Sex Unknown Lives With Spouse 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 ETOH Use Denies alcohol use Tobacco Use Start: Unknown Patient has never smoked Smoking Status Reviewed: 05/06/19 Patient has never smoked Exercise Type/Frequency Exercises sporadically Allergies, Adverse Reactions, Alerts Description No Known Drug Allergies Medications Active Medications SIG Qnty Indications Ordering Date Provider Methylprednisolone take medrol dose 1units Z47.1 Jean 04/27/2019 4mg TBPK pack as directed MD Melody Tylenol 8 Hour Take one tab by 60tabs Jean 04/20/2019 650mg Tablets mouth q4h MD Melody ER Ondansetron take 1 every 8 30tabs Deborah Petersen 04/16/2019 8mg Tablets hours as needed MD Dispers nausea Tramadol HCL 1 tablet by mouth 30tabs Jean 04/16/2019 50mg Tablets every 6 hours as MD Melody needed pain Oxycodone-Acetaminophen 1-2 tas by mouth 60tabs [facility] 04/13/2019 every 4-6 hours as MD Melody 5-325mg Tablets needed for post-op pain. Medrol take as directed 21tabs [facility] 04/13/2019 4mg Tablets per dosepak MD Melody instructions Naproxen 1 by mouth twice a 60tabs [facility] 03/16/2019 500mg Tablets day as needed MD Melody pain. Do not take while on the medrol dosepak History Medications Colace 1 tab every 12 hours 90caps [facility] 01/28/2019 - 100mg Capsules as needed for MD Melody 03/15/2019 constipation Eliquis 1 tab by mouth every 60tabs [facility] 01/28/2019 - 2.5mg Tablets 12 hours for 30 days MD Melody 03/15/2019 Oxycodone-Acetaminop 1 by mouth every 4-6 60tabs [facility] 01/28/2019 - hen hours as needed for MD Melody 04/07/2019 5-325mg Tablets post-op pain. No Active Unknown 01/07/2019 - Medications 01/28/2019 Medications Administered in Office Medication SIG Qnty Indications Ordering Provider Date Depomedrol 40MG Jean Dima Oliver MD 03/16/2019 Injection Vital Signs Date Vital Result Comment 05/06/2019 9:00am Height 69 inches 5'9" Heart Rate 68 /min BP Systolic 110 mmHg BP Diastolic 70 mmHg Respiratory Rate 18 /min Body Temperature 98.1 F Pain Level 4 04/27/2019 8:47am Height 69 inches 5'9" Weight 186.00 lb Heart Rate 68 /min BP Systolic Sitting 120 mmHg BP Diastolic Sitting 82 mmHg Body Temperature 97.7 F Pain Level 0 BMI (Body Mass Index) 27.5 kg/m2 04/20/2019 8:19am Height 69 inches 5'9" Weight 190.00 lb Heart Rate 72 /min BP Systolic 128 mmHg BP Diastolic 78 mmHg Respiratory Rate 12 /min Pain Level 0 BMI (Body Mass Index) 28.1 kg/m2 04/08/2019 8:11am Height 69 inches 5'9" Weight [...] Test Result H/L Range Note Xray 03/16/2019 [facility] Knee 3 Views <pending> [address] [place] [address] [phone] CBC Auto Diff 01/15/2019 [facility] White Blood 7.1 10^3/uL N 3.5-10.[address] Count [place], [place] [id number] [phone] Red Blood Count 4.99 10^6/uL N 4.00-5.40 [...] Blood Cells % 0.1 Urinalysis Profile 01/15/2019 [facility] Urine Color Yellow [address] [place] [address] [phone] Urine Appearance Cloudy Urine Specific [place] 1.013 N 1.010-1.030 Urine pH 5.0 N 5-9 Urine Urobilinogen Negative Negative Urine Ketones Negative Negative Urine Protein Negative Negative Urine Leukocytes Negative Negative Urine Blood Negative Negative Urine Nitrite Negative Negative Urine Bilirubin Negative Negative Urine Glucose Negative Negative Comp Metabolic Panel 01/15/2019 [facility] Sodium 139 mmol/L N 135-145 [address] [place] [address] [phone] Potassium 4.3 mmol/L N 3.5-5.0 Chloride 106 [...] >60 Egfr 115.5 >60 1 Inr/Protime 01/15/2019 [facility] Inr 1.02 N 0.77-1.02 [address] [place] [address] [phone] Laboratory test 01/15/2019 [facility] Partial 42.8 seconds High 26.0-36.[address] [address] Time PTT [phone] Type & Screen 01/15/2019 [facility] Patient O Positive [address] [place] [address] [phone] Antibody Screen NEGATIVE Urine Culture And 01/15/2019 [facility] Urine Culture SEE RESULT [address] [place] [address] [phone] 1 Because ethnic data is not always [...] [address]: Jean Oliver MD Acct: [id number] Unit: [id number] AGE: 58 Location: [facility] Re01/15/19 SEX: M Status: REG REF SPEC: [id number] DELIA: 01/15/19-[address]: Jean Oliver MD REQ: [id number] RECD: 01/15/19 STATUS: JESSICA WHIPPLE DR: Davidson Contreras MD _ SOURCE: URINE SPDES: ORDERED: Urine Culture QUERIES: Urine Source: Random Procedure Result Reported Site Urine Culture Final 01/16/19821 ML No Growth (<1,000 CFU/mL) * ML - Main Lab . END OF REPORT DEPARTMENT OF PATHOLOGY, [address] [place] [address] Yuan Zendejas M.D. Director [facility] # [id number] Procedures Date Code Description Status 04/14/2019 27665 Manipulation Knee Under Generl Anesth. Incl Application Completed Traction 04/14/2019 24839 Manipulation Knee Under Generl Anesth. Incl Application Completed Traction 03/16/2019 07937 Inject/Drain Joint/Bursa Major W/O US Completed 01/27/2019 52726 TKR Total Knee Replacement Completed 01/27/2019 97967 TKR Total Knee Replacement Completed 01/15/2019 69644 EKG, Interpretation Only Completed Encounters Type Date Location Provider Dx Diagnosis Office Visit 01/07/2019 [facility] Jean Ch M17.11 Unilateral primary 8:00[facility] Oliver MD osteoarthritis, right knee Plan of Treatment 05/06/2019 - Jean Oliver MDZ47.1 Aftercare following joint replacement surgeryFollow up:Follow up: Follow up 2 wzhyaJ53.661 Stiffness of right knee, not elsewhere classified
--- OUTSIDE RECORDS SUMMARY | 2019-05-09 11:31 | XMS REPORT | Continuity of Care Document ---
:1960 External Reference #:[id number] Author Name RejiTiagorory Care Team Providers Name Role Phone Davidson Contreras MD Primary Care Physician Unavailable Payers Date Identification Numbers Payment Provider Subscriber Policy Number: [id number] [facility] Kevin Beck PayID: [id number] [address] [address] [place] [address] Problems Active Problems Provider Date Localized, primary osteoarthritis Jean Oliver MD Onset: 01/07/2019 Family History Date Family Member(s) Observation Comments General No Current Problems Social History Type Date Description Comments Sex Unknown Lives 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 ETOH Use Denies alcohol use Tobacco Use Start: Unknown Patient has never smoked Smoking Status Reviewed: 04/27/19 Patient has never smoked Exercise Type/Frequency Exercises sporadically Allergies, Adverse Reactions, Alerts Description No Known Drug Allergies Medications Active Medications SIG Qnty Indications Ordering Date Provider Methylprednisolone take medrol dose 1units Z47.1 Jean 04/27/2019 4mg TBPK pack as directed MD Melody Tylenol 8 Hour Take one tab by 60tabs [facility] 04/20/2019 650mg Tablets mouth q4h MD Melody ER Ondansetron take 1 every 8 30tabs Deborah Petersen 04/16/2019 8mg Tablets hours as needed Dispers nausea Tramadol HCL 1 tablet by mouth 30tabs Jean 04/16/2019 50mg Tablets every 4-6 hours as MD Melody needed pain Oxycodone-Acetaminophen 1-2 tas by mouth 60tabs [facility] 04/13/2019 every 4-6 hours as MD Melody 5-325mg Tablets needed for post-op pain. Medrol take as directed 21tabs [facility] 04/13/2019 4mg Tablets per dosepak MD Melody instructions Naproxen 1 by mouth twice a 60tabs [facility] 03/16/2019 500mg Tablets day as needed MD Melody pain. Do not take while on the medrol dosepak History Medications Colace 1 tab every 12 hours 90caps [facility] 01/28/2019 - 100mg Capsules as needed for MD Melody 03/15/2019 constipation Eliquis 1 tab by mouth every 60tabs [facility] 01/28/2019 - 2.5mg Tablets 12 hours for 30 days MD Melody 03/15/2019 Oxycodone-Acetaminop 1 by mouth every 4-6 60tabs [facility] 01/28/2019 - hen hours as needed for MD Melody 04/07/2019 5-325mg Tablets post-op pain. No Active Unknown 01/07/2019 - Medications 01/28/2019 Medications Administered in Office Medication SIG Qnty Indications Ordering Provider Date Depomedrol 40MG Jean Dima Oliver MD 03/16/2019 Injection Vital Signs Date Vital Result Comment 04/27/2019 8:47am Height 69 inches 5'9" Weight [...] Test Result H/L Range Note Xray 03/16/2019 [facility] Knee 3 Views <pending> [address] [place] [address] [phone] CBC Auto Diff 01/15/2019 [facility] White Blood 7.1 10^3/uL N 3.5-10.[address] [place] [address] [phone] Red Blood Count 4.99 10^6/uL N 4.00-5.40 [...] Blood Cells % 0.1 Urinalysis Profile 01/15/2019 [facility] Urine Color Yellow [address] [place] [address] [phone] Urine Appearance Cloudy Urine Specific [place] 1.013 N 1.010-1.030 Urine pH 5.0 N 5-9 Urine Urobilinogen Negative Negative Urine Ketones Negative Negative Urine Protein Negative Negative Urine Leukocytes Negative Negative Urine Blood Negative Negative Urine Nitrite Negative Negative Urine Bilirubin Negative Negative Urine Glucose Negative Negative Comp Metabolic Panel 01/15/2019 [facility] Sodium 139 mmol/L N 135-[address] [place] [address] [phone] Potassium 4.3 mmol/L N 3.5-5.0 Chloride 106 [...] >60 Egfr 115.5 >60 1 Inr/Protime 01/15/2019 [facility] Inr 1.02 N 0.77-1.[address] [place] [address] [phone] Laboratory test 01/15/2019 [facility] Partial 42.8 seconds High 26.0-36.[address] [place] [address] Time PTT [phone] Type & Screen 01/15/2019 [facility] Patient O Positive [address] [place] [address] [phone] Antibody Screen NEGATIVE Urine Culture And 01/15/2019 [facility] Urine Culture SEE RESULT [address] [place] [address] [phone] 1 Because ethnic data is not always [...] [address]: Jean Oliver MD Acct: [id number] Unit: [id number] AGE: 58 Location: [facility] Re01/15/19 SEX: M Status: REG REF SPEC: [id number] DELIA: 01/15/19-[address] [facility] [address]: Jean Oliver MD REQ: [id number] RECD: 01/15/19-1099 STATUS: JESSICA WHIPPLE DR: Davidson Contreras MD _ SOURCE: URINE SPDESC: ORDERED: Urine Culture QUERIES: Urine Source: Random Procedure Result Reported Site Urine Culture Final 01/16/19- 821 ML No Growth (<1,000 CFU/mL) * ML - Main Lab . END OF REPORT DEPARTMENT OF PATHOLOGY, [address] [place] [address] Yuan Zendejas M.D. Director [facility] # [id number] Procedures Date Code Description Status 04/14/2019 79819 Manipulation Knee Under Generl Anesth. Incl Application Completed Traction 04/14/2019 91131 Manipulation Knee Under Generl Anesth. Incl Application Completed Traction 03/16/2019 50771 Inject/Drain Joint/Bursa Major W/O US Completed 01/27/2019 31890 TKR Total Knee Replacement Completed 01/27/2019 94448 TKR Total Knee Replacement Completed 01/15/2019 81183 EKG, Interpretation Only Completed Encounters Type Date Location Provider Dx Diagnosis Office Visit 01/07/2019 Orthopedic Jean Ch M17.11 Unilateral primary 8:00a [facility] Oliver MD osteoarthritis, right knee Plan of Treatment 04/27/2019 - Jean Oliver MDZ47.1 Aftercare following joint replacement surgeryNew Medication:Methylprednisolone 4 mg - take medrol dose pack as directedFollow up:Follow up: 1 weekZ96.651 Presence of right artificial knee repcgM12.661 Stiffness of right knee, not elsewhere classified
[2019-05-09] MEDS ORDERED: fentaNYL* 50 MCG/ML 2 ML VIAL (100 MCG VIAL) IV SLOW PU ONE (11:52)
[2019-05-09] MEDS ORDERED: NS 0.9% 1000 ML** 1,000 ML IV ONE (11:52)
[2019-05-09] MEDS ORDERED: Metoclopramide IV* 5 MG/ML 2 ML VIAL IV ONE (11:52)
--- NOTE | 2019-05-09 11:53 | ED ---
GI/ HPI - HPI Summary HPI Summary: This patient is a 59 year old M presenting to ED with a chief complaint of constipation after taking tramadol for his physical therapy following a recent knee replacement surgery. His last bowel movement was 3-4 days ago. He was given stool softener, but he ran out of it. He used Miralax, but it has not helped. The same constipation happened three weeks ago. The patient rates the pain 8/10 in severity. Symptoms aggravated by nothing. Symptoms alleviated by nothing. Patient reports unable to eat anything, vomiting, diffuse lower abdominal pain. Patient denies fever. PMHx of arthritis. PSHx of knee replacement. FHx of renal disease. Patient drinks alcohol occasionally, but does not use tobacco or substances. - History of Current Complaint Chief Complaint: EDConstipation Time Seen by Provider: 05/09/19 11:44 Stated Complaint: STOMACH ACHE PER PT Hx Obtained From: Patient Onset/Duration: Started Days Ago - 3-4 days, Still Present Timing: Constant, Intermittent - Another episode 3 weeks ago Severity: Severe Current Severity: Severe Pain Intensity: 8 Location of Pain: Diffuse - Lower abdominal Associated Signs and Symptoms: Positive: Vomiting, Constipation, Abdominal Pain - Diffuse lower abdomen, Other: - Unable to eat food Aggravating Factor(s): Nothing Alleviating Factor(s): Nothing - Additional Pertinent History Primary Care Physician: TADEO - Allergy/Home Medications Allergies/Adverse Reactions: Allergies Allergy/AdvReac Type Severity Reaction Status Date / Time No Known Allergies Allergy Verified 05/09/19 11:25 Home Medications: Home Medications Tramadol HCl 50 mg PO TID 05/09/19 [History Confirmed 05/09/19] predniSONE TAB* 4 mg PO DAILY 05/09/19 [History Confirmed 05/09/19] PMH/Surg Hx/FS Hx/Imm Hx Previously Healthy: No Musculoskeletal History: Reports: Hx Arthritis - osteoarthritis, bone spurs in left knees Sensory History: Reports: Hx Contacts or Glasses - glasses Denies: Hx Hearing Aid Opthamlomology History: Reports: Hx Contacts or Glasses - glasses - Cancer History Hx Chemotherapy: No - Surgical History Surgery Procedure, Year, and Place: 01/2019 right total knee replacement Hx Anesthesia Reactions: No Infectious Disease History: No Infectious Disease History: Denies: Traveled Outside the [place] in Last 30 Days - Family History Known Family History: Positive: Renal Disease, Other - Asthma - Social History Alcohol Use: Occasionally Hx Substance Use: No Substance Use Type: Reports: None Hx Tobacco Use: No Smoking Status (MU): Never Smoked Tobacco Review of Systems Negative: Fever Gastrointestinal: Other - Constipation, unable to eat food Positive: Abdominal Pain - Diffuse lower abdomen, Vomiting All Other Systems Reviewed And Are Negative: Yes Physical Exam - Summary Physical Exam Summary: Appearance: The patient is well-nourished in no acute distress and in no acute pain. Skin: The skin is warm and dry and skin color reflects adequate perfusion. HEENT: The head is normocephalic and atraumatic. The pupils are equal and reactive. The conjunctivae are clear and without drainage. Nares are patent and without drainage. Mouth reveals moist mucous membranes and the throat is without erythema and exudate. The external ears are intact. The ear canals are patent and without drainage. The tympanic membranes are intact. Neck: The neck is supple with full range of motion and non-tender. There are no carotid bruits. There is no neck vein distension. Respiratory: Chest is non-tender. Lungs are clear to auscultation and breath sounds are symmetrical and equal. Cardiovascular: Heart is regular rate and rhythm. There is no murmur or rub auscultated. There is no peripheral edema and pulses are symmetrical and equal. Abdomen: mild bilateral lower abdominal tenderness, normal bowel sounds. Musculoskeletal: There is no back tenderness noted. Extremities are non-tender with full range of motion. There is good capillary refill. There is no peripheral edema or calf tenderness elicited. Neurological: Patient is alert and oriented to person, place and time. The patient has symmetrical motor strength in all four extremities. Cranial nerves are grossly intact. Deep tendon reflexes are symmetrical and equal in all four extremities. Psychiatric: The patient has an appropriate affect and does not exhibit any anxiety or depression. Vital Signs On Initial Exam: Initial Vitals Temp Pulse Resp BP Pulse Ox 98.0 F 73 18 120/87 96 05/09/19 11:21 05/09/19 11:21 05/09/19 11:21 05/09/19 11:21 05/09/19 11:21 Diagnostics - Vital Signs Vital Signs Temp Pulse Resp BP Pulse Ox 05/09/19 11:21 98.0 F 73 18 120/87 96 - Laboratory Result Diagrams: 05/09/19 11:59 05/09/19 11:59 Lab Statement: Any lab studies that have been ordered have been reviewed, and results considered in the medical decision making process. - Radiology Abdomen XR Radiology Interpretation Completed By: Radiologist Summary of Radiographic Findings: NONOBSTRUCTIVE BOWEL GAS PATTERN. Dr. Martines has reviewed this radiology report. - CT A/P CT Interpretation Completed By: Radiologist Summary of CT Findings: 1. DIVERTICULOSIS. 2. FATTY INFILTRATION OF THE LIVER. 3. THE DUODENAL MUCOSAL THICKENING NOTED ON THE PREVIOUS CONTRAST- ENHANCED EXAMINATION IS NOT WELL VISUALIZED ON THE CURRENT EXAMINATION. 4. FAT- CONTAINING UMBILICAL HERNIA. 5. SPONDYLOLYSIS WITH SPONDYLOLISTHESIS AT L5-S1. Dr. Martines has reviewed this radiology report. Re-Evaluation - Re-Evaluation First Eval Re-Evaluation Time: 14:30 Change: Unchanged Comment: Discussed XR results with patient. Patient reports no change in pain and agrees to a CT scan of the abdomen. Second Eval Re-Evaluation Time: 15:24 Comment: Discussed CT A/P results with patient. Patient will be discharged home with dx of abd pain. Patient understands and agrees with this plan. GIGU Course/Dx - Course Course Of Treatment: Mr. Cardenas was here about 3 weeks ago with a complaint of constipation. At that time he was given some MiraLAX and Reglan and fentanyl felt a lot better. A CT scan obtained at that time revealed some mild duodenitis and diverticulosis. He had a white count of 16 at that time. He states that he did begin to feel somewhat better but is continued to take tramadol for physical therapy and that this has him constipated. He believes he has not moved his bowels for 3 days but admits he hasn't been eating much either secondary to nausea. Was nontoxic in appearance here with stable vital signs. His white count has normalized today. A plain KUB showed no evidence for constipation. He was given pain medication here much as he was given it 3 weeks ago and did not get significant relief. I was concerned given the nausea and vomiting and somewhat intractable abdominal pain and known diverticulosis that this could represent diverticulitis and felt that the CT scan needed to be repeated. It however revealed no acute pathology. I recommended symptomatic treatment for him and follow-up with his PCP. - Diagnoses Provider Diagnoses: Abdominal pain Discharge - Sign-Out/Discharge Documenting (check all that apply): Patient Departure - Discharge Patient Received Moderate/Deep Sedation with Procedure: No - Discharge Plan Condition: Stable Disposition: HOME Prescriptions: Docusate Sodium [Colace] 100 mg PO BID #20 capsule Patient Education Materials: Abdominal Pain (ED) Referrals: Davidson Contreras MD [Primary Care Provider] - 3 Days Additional Instructions: Follow up with your primary care provider in 2-3 days. RETURN TO THE ER FOR WORSENING OR CHANGING SYMPTOMS. - Billing Disposition and Condition Condition: STABLE Disposition: Home - Attestation Statements Document Initiated by Bijal: Yes Documenting Scribe: David Humphreys Provider For Whom Bijal is Documenting (Include Credential): Ploo Martines MD Scribe Attestation: IDavid, scribed for Polo Martines MD on 05/09/19 at 1639. Scribe Documentation Reviewed: Yes Provider Attestation: The documentation as recorded by the David capellan accurately reflects the service I personally performed and the decisions made by me, Polo Martines MD Status of Scribe Document: Viewed
[2019-05-09 12:06] LABS: ABS Eosinophils 0.1 10^3/ul (0-0.6); ABS Lymphocytes 1.2 10^3/ul (1.0-4.8); ABS Monocytes 0.8 10^3/ul (0-0.8); ABS Neutrophils 7.6 10^3/ul (1.5-7.7); Hematocrit 42 % (42-52); Hemoglobin 14.6 g/dL (14.0-18.0); Lymphocyte % 12.7 %; Mean Corpuscular HGB Conc 35 g/dL (31-36); Mean Corpuscular Hemoglobin 30 pg (27-31); Mean Corpuscular Volume 86 fL (80-94); Mean Platelet Volume 7.4 fL (7.4-10.4); Nucleated Red Blood Cells % 0.1; Platelet Count 294 10^3/uL (150-450); Red Blood Count 4.88 10^6 /uL (4.18-5.48); Red Cell Distribution Width 14 % (10-15); White Blood Count 9.8 10^3/uL (3.5-10.8)
[2019-05-09 12:22] LABS: Albumin 4.3 g/dL (3.2-5.2); Albumin/Globulin Ratio 1.3 (1-3); C Reactive Protein 7.31 mg/L (<8.01); Calcium 9.7 mg/dL (8.6-10.3); EGFR African American 120.1 (>60); EGFR Non-African American 99.3 (>60); Globulin 3.2 g/dL (2-4); Total Bilirubin 1.1 mg/dL (0.2-1.0); Total Protein 7.5 g/dL (6.4-8.9)
[2019-05-09 15:54] VITALS: BP 141/88
== END 2019-05-09 15:53 | disposition home or self-care (01) ==
LOC: ED 11:14
DX: R10.9 Unspecified abdominal pain (principal); Z79.899 Other long term (current) drug therapy; K57.90 Diverticulosis of intestine, part unspecified, without perforation or abscess without bleeding; K76.0 Fatty (change of) liver, not elsewhere classified; K42.9 Umbilical hernia without obstruction or gangrene; M43.17 Spondylolisthesis, lumbosacral region
CPT/HCPCS: 36415; 74018; 74176; 80053; 83605; 85025; 86140; 96361; 96374; 96375; 99283; J2765; J3010

== ENCOUNTER 2019-05-13 08:01 | Emergency (ER) | payer BC ==
[2019-05-13] MEDS ORDERED: NS 0.9% 1000 ML** 1,000 ML IV ONE (08:34)
[2019-05-13] MEDS ORDERED: Ondansetron INJ* 2 MG/ML VIAL IV ONE (08:35)
--- NOTE | 2019-05-13 08:39 | UC ---
UC General HPI - HPI Summary HPI Summary: Here for persistent abdominal pain. States he had bout of abdominal pain that was lower initially and went to the ER in March and had work up done there. States he got better. After that he also had an issue with constipation and was given miralax and that got better as well. Returned to the ER on 05/09 for another bout of abdominal pain lower in nature and CT scan was unrevealing. Labs unremarkable as well. DIscharged home with colace. States still not better. States he really only has had water because anything else makes him vomit. Has not taken in any solids since 05/07. He is scheduled to see GI tomorrow and see the PA. He states the pain seems to move but mostly on right side. Right lower region and now currently right mid and right upper quadrant. Has liquid stools about 1x/day small amount. No blood or black stools. Is losing weight, not sure how much. States he had a colonoscopy about 1-2 years ago that was unremarakble. Took tylenol this morning and his pain is somewhat better. Meds: reviewed. No back pain. No urinary symptoms. Patient reluctant to go to the ER because he has done it twice and he continues to have issues. - History of Current Complaint Chief Complaint: UCAbdominalPain Stated Complaint: ABD PAIN Time Seen by Provider: 05/13/19 08:20 Pain Intensity: 5 - Allergy/Home Medications Allergies/Adverse Reactions: Allergies Allergy/AdvReac Type Severity Reaction Status Date / Time No Known Allergies Allergy Verified 05/13/19 08:06 Home Medications: Home Medications Acetaminophen TAB* [Tylenol TAB*] 325 mg PO Q4H PRN 05/13/19 [History Confirmed 05/13/19] Naproxen Sodium [Naproxen 220 mg] 220 mg PO DAILY 05/13/19 [History Confirmed ] Polyethylene Glycol 3350* [Miralax*] 17 gm PO DAILY 05/13/19 [History Confirmed 05/13/19] PMH/Surg Hx/FS Hx/Imm Hx Previously Healthy: Yes - Surgical History Surgical History: Yes Surgery Procedure, Year, and Place: 01/2019 right total knee replacement - Family History Known Family History: Positive: Renal Disease, Other - Asthma - Social History Alcohol Use: None Alcohol Amount: socially Substance Use Type: None Smoking Status (MU): Never Smoked Tobacco - Immunization History Most Recent Influenza Vaccination: 2018 Most Recent Pneumonia Vaccination: none Review of Systems All Other Systems Reviewed And Are Negative: Yes Gastrointestinal: Positive: Abdominal Pain, Vomiting, Diarrhea, Nausea Physical Exam Triage Information Reviewed: Yes Appearance: Well-Appearing Vital Signs: Initial Vital Signs Temp 98.9 F 05/13/19 08:10 Pulse 90 05/13/19 08:10 Resp 16 05/13/19 08:10 BP 129/84 05/13/19 08:10 Pulse Ox 96 05/13/19 08:10 Vital Signs Reviewed: Yes ENT: Positive: Normal ENT inspection Neck: Positive: Supple Respiratory: Positive: Lungs clear, Normal breath sounds Abdomen Description: Positive: No Organomegaly, Soft, Other: - mild tenderness in RUQ. No rebound or guarding Bowel Sounds: Positive: Present Diagnostics - Radiology Ultrasound Radiology Interpretation Completed By: Radiologist Summary of Radiographic Findings: NO stones or evidence of cholecystitis Course/Dx - Course Course Of Treatment: This is a 59 yr old with recurrent abdominal pain Has had two ED visits for same issue with relatively unremarkable workup. Initially seen some duodenal thickening labs unremarkable U/S of gallbladder: Negative IVFs, Zofran given U/A: +2 ketones Orthostatics: unremarkable Able to tolerate liquids and ate several crackers with no further vomiting Plan Recommend follow up with GI tomorrow as scheduled Recommend Zofran as directed as needed for nausea If symptoms persist or worsen, recommend follow up with PCP or return to urgent care or the ER Continue fluids and bland diet - Diagnoses Provider Diagnosis: Nausea vomiting and diarrhea Discharge - Sign-Out/Discharge Documenting (check all that apply): Patient Departure All imaging exams completed and their final reports reviewed: Yes - Discharge Plan Condition: Good Disposition: HOME Prescriptions: Ondansetron ODT TAB* [Zofran 4 MG Odt TAB*] 4 mg PO Q8H PRN #12 tab.odt PRN Reason: Nausea Referrals: Davidson Contreras MD [Primary Care Provider] - Additional Instructions: Recommend follow up with GI tomorrow as scheduled Recommend Zofran as directed as needed for nausea If symptoms persist or worsen, recommend follow up with PCP or return to urgent care or the ER Continue fluids and bland diet - Billing Disposition and Condition Condition: GOOD Disposition: Home
[2019-05-13 09:04] VITALS: BP 141/84
== END 2019-05-13 10:35 | disposition home or self-care (01) ==
LOC: UCEAST 08:01
DX: R11.2 Nausea with vomiting, unspecified (principal); R10.31 Right lower quadrant pain; R19.7 Diarrhea, unspecified
CPT/HCPCS: 76705; 81003; 96361; 96374; 99212; G0463; J2405

== ENCOUNTER 2019-05-14 20:28 | Inpatient (IN) | payer BC ==
--- NOTE | 2019-05-14 23:24 | ED ---
GI/ HPI - HPI Summary HPI Summary: Patient is a 59 y/o M presenting to ED with complaints of abdominal pain, constipation, and N/V. He notes that he had a knee manipulation on April 14. A few days after, constipation onset, and shortly afterwards, N/V and abdominal pain. He came to [facility], patient was found to be constipated and discharged to home with medications. He felt slightly better for a few days. However, Sx returned once more around 3 full weeks ago. He states that the pain has seemed to have migrated more upwards towards RUQ at this time, noting his abdominal pain had initially been a bit lower. Patient came to [facility] five days ago, CT was done, no specific cause for pain was noted. After discharge, he continued to experience pain. Patient went to GI today, patient was prescribed antibiotics and anti-nausea medications. He states that he took his anti-nausea meds at around 1400 today and antibiotics, one dose, an hour later. He took a nap and, when he woke up, he experienced an exacerbation of pain. He denies Hx of abdominal surgeries and denies any previous GI issues. Chest pain and SOB are denied. On triage, pain is rated 8/10, eating is noted to aggravate Sx. Home medications and allergies are reviewed. - History of Current Complaint Chief Complaint: EDAbdPain Time Seen by Provider: 05/14/19 23:11 Stated Complaint: ABD PAIN/VOMITING PER PT Hx Obtained From: Patient Onset/Duration: Started Weeks Ago, Still Present Timing: Constant, Lasting Weeks Current Severity: Severe Pain Intensity: 8 Associated Signs and Symptoms: Positive: Nausea, Vomiting, Constipation, Abdominal Pain, Other: - no SOB. Negative: Chest Pain Aggravating Factor(s): Food Alleviating Factor(s): Nothing - Additional Pertinent History Primary Care Physician: TADEO - Allergy/Home Medications Allergies/Adverse Reactions: Allergies Allergy/AdvReac Type Severity Reaction Status Date / Time No Known Allergies Allergy Verified 05/15/19 04:26 PMH/Surg Hx/FS Hx/Imm Hx Musculoskeletal History: Reports: Hx Arthritis - osteoarthritis, bone spurs in left knees Sensory History: Reports: Hx Contacts or Glasses - glasses Denies: Hx Hearing Aid Opthamlomology History: Reports: Hx Contacts or Glasses - glasses - Cancer History Hx Chemotherapy: No - Surgical History Surgery Procedure, Year, and Place: 01/2019 right total knee replacement Hx Anesthesia Reactions: No Infectious Disease History: No Infectious Disease History: Denies: Traveled Outside the [place] in Last 30 Days - Family History Known Family History: Positive: Renal Disease, Other - Asthma - Social History Alcohol Use: None Alcohol Amount: socially Hx Substance Use: No Substance Use Type: Reports: None Hx Tobacco Use: No Smoking Status (MU): Never Smoked Tobacco Review of Systems Negative: Chest Pain Negative: Shortness Of Breath Gastrointestinal: Other - positive - constipation Positive: Abdominal Pain, Vomiting, Nausea All Other Systems Reviewed And Are Negative: Yes Physical Exam - Summary Physical Exam Summary: Appearance: Well-appearing, Well-nourished, lying in bed comfortably Skin: Warm, dry, no obvious rash Eyes: sclera anicteric, no conjunctival pallor ENT: mucous membranes moist, pharynx appears normal Neck: Supple, nontender Respiratory: Clear to auscultation, no signs of respiratory distress Cardiovascular: Normal S1, S2. No murmurs. Normal distal pulses in tibial and radial bilaterally. Abdomen: Soft, right-sided abdominal tenderness with no peritoneal signs, normal active bowel sounds present Musculoskeletal: Normal, Strength/ROM Intact Neurological: A&Ox3, awake and alert, mentation is normal, speech is fluent and appropriate Psychiatric: affect is normal, does not appear anxious or depressed Triage Information Reviewed: Yes Vital Signs On Initial Exam: Initial Vitals Temp Pulse Resp BP Pulse Ox 99.3 F 103 20 134/94 97 05/14/19 20:32 05/14/19 20:32 05/14/19 20:32 05/14/19 20:32 05/14/19 20:32 Vital Signs Reviewed: Yes Diagnostics - Vital Signs Vital Signs Temp Pulse Resp BP Pulse Ox 05/14/19 20:32 99.3 F 103 20 134/94 97 - Laboratory Result Diagrams: 05/17/19 05:42 05/17/19 05:42 Lab Statement: Any lab studies that have been ordered have been reviewed, and results considered in the medical decision making process. - Radiology CXR Radiology Interpretation Completed By: ED Physician Summary of Radiographic Findings: No acute process, pending official report. - CT CT ABD/PEL CT Interpretation Completed By: Radiologist Summary of CT Findings: CT ABD/PEL IMPRESSION: 1. There is significant increase in wall thickening and fat stranding involving. the proximal duodenum consistent with duodenitis and there appears to be. discontinuity involving the wall of the proximal duodenum suspicious for. duodenal perforation likely related to peptic ulcer disease. 2. There is new mild free fluid and mild intraperitoneal free air mainly in the. upper abdomen and right upper quadrant and to a lesser degree free fluid in the. pelvis, consistent with bowel perforation likely at the level of the duodenum. 3. Stable colonic diverticulosis without evidence for acute diverticulitis.THIS REPORT WAS REVIEWED BY DR. MALONEY. - EKG 2335 Cardiac Rate: NL - rate of 95 BPM EKG Rhythm: Sinus Rhythm EKG Comparison: No Significant Change - no changes from 01/15/19 EKG. Summary of EKG Findings: EKG showed sinus rhythm with rate of 95 BPM, right bundle branch block, no changes from 01/15/19 EKG. Re-Evaluation - Re-Evaluation First Eval Re-Evaluation Time: 23:20 Comment: Dr. Kincaid relays that Dr. Goss saw the patient on the tracker and asks that a repeat CT ABD/PEL with IV contrast be done, notes that patient will likely have to be admitted and be scoped in the morning. GIGU Course/Dx - Course Course Of Treatment: Patient is a 59 y/o M presenting to ED with complaints of abdominal pain, constipation, and N/V. He notes that he had a knee manipulation on April 14. A few days after, constipation onset, and shortly afterwards, N/V and abdominal pain. He came to [facility], patient was found to be constipated and discharged to home with medications. He felt slightly better for a few days. However, Sx returned once more around 3 full weeks ago. He states that the pain has seemed to have migrated more upwards towards RUQ at this time, noting his abdominal pain had initially been a bit lower. Patient came to [facility] five days ago, CT was done, no specific cause for pain was noted. After discharge, he continued to experience pain. Patient went to GI today, patient was prescribed antibiotics and anti-nausea medications. He states that he took his anti-nausea meds at around 1400 today and antibiotics, one dose, an hour later. He took a nap and, when he woke up, he experienced an exacerbation of pain. He denies Hx of abdominal surgeries and denies any previous GI issues. Chest pain and SOB are denied. On physical exam, right-sided abdominal tenderness with no peritoneal signs. EKG showed sinus rhythm with rate of 95 BPM, right bundle branch block, no changes from 01/15/19 EKG. CXR was NAD. Labs showed WBC 16.4, absolute neuts 13.5, absolute monos 1.4, INR 1.27, APTT 49.1, sodium 132, chloride 93, anion gap 15, glucose 162, lactic acid 1, calcium 10.4, AST 10, trop 0, CRP 18.28, amylas 32, lipase 15. During ED course, patient received zosyn 3.375 gm in sodium chloride, 100 mls @ 200 mls/hr IVPB, fluids, toradol 10 mg IV, morphine 10 mg IV, Zofran [address] ABD/PEL IMPRESSION: 1. There is significant increase in wall thickening and fat stranding involving. the proximal duodenum consistent with duodenitis and there appears to be. discontinuity involving the wall of the proximal duodenum suspicious for. duodenal perforation likely related to peptic ulcer disease. 2. There is new mild free fluid and mild intraperitoneal free air mainly in the. upper abdomen and right upper quadrant and to a lesser degree free fluid in the. pelvis, consistent with bowel perforation likely at the level of the duodenum. 3. Stable colonic diverticulosis without evidence for acute diverticulitis. As of 411, Dr. Downey will be coming to evaluate the patient. Dr. Downey will be accepting the pt to [facility] for further evaluation. - Diagnoses Provider Diagnoses: Perforated duodenal ulcer - Critical Care Time Critical Care Time: 30-74 min Discharge - Sign-Out/Discharge Documenting (check all that apply): Patient Departure Patient Received Moderate/Deep Sedation with Procedure: No - Discharge Plan Condition: Guarded Disposition: ADMITTED TO [facility] - Billing Disposition and Condition Condition: GUARDED Disposition: Admitted to [facility] - Attestation Statements Document Initiated by Bijal: Yes Documenting Scribe: Anastasiia Aiken Provider For Whom Bijal is Documenting (Include Credential): Polo Maloney MD. Scribe Attestation: Anastasiia Randhawa scribed for Polo Maloney MD. on 05/18/19 at 0806. Scribe Documentation Reviewed: Yes Provider Attestation: The documentation as recorded by the scribe, Anastasiia Aiken accurately reflects the service I personally performed and the decisions made by me, Polo Maloney MD. Status of Scribsunshine Document: Viewed Consult Consult: [id number] - I spoke with Dr. Downey who will be coming in to evaluate the patient. Dr. Downey has accepted the pt for admission.
[2019-05-14 23:57] LABS: ABS Eosinophils 0.1 10^3/ul (0-0.6); ABS Lymphocytes 1.5 10^3/ul (1.0-4.8); ABS Monocytes 1.4 10^3/ul (0-0.8); ABS Neutrophils 13.5 10^3/ul (1.5-7.7); Eosinophil % 0.5 %; Hematocrit 46 % (42-52); Hemoglobin 15.5 g/dL (14.0-18.0); Lymphocyte % 8.9 %; Mean Corpuscular HGB Conc 34 g/dL (31-36); Mean Corpuscular Hemoglobin 29 pg (27-31); Mean Corpuscular Volume 86 fL (80-94); Mean Platelet Volume 7.9 fL (7.4-10.4); Platelet Count 347 10^3/uL (150-450); Red Blood Count 5.32 10^6 /uL (4.18-5.48); Red Cell Distribution Width 14 % (10-15); White Blood Count 16.4 10^3/uL (3.5-10.8)
[2019-05-14] MEDS ORDERED: Morphine 4 MG/ML VIAL (1 ml) 4 MG/ML VIAL IV ONE (23:57)
[2019-05-15] MEDS ORDERED: Ondansetron INJ* 2 MG/ML VIAL IV ONE
[2019-05-15 00:15] LABS: Albumin 4.6 g/dL (3.2-5.2); Calcium 10.4 mg/dL (8.6-10.3); Magnesium 2.3 mg/dL (1.9-2.7); Potassium 3.5 mmol/L (3.5-5.0)
[2019-05-15 00:17] LABS: Activated Partial Thrombo Time 49.1 seconds (26.0-38.0); INR 1.27 (0.82-1.09)
[2019-05-15 00:21] LABS: Albumin/Globulin Ratio 1.4 (1-3); C Reactive Protein 18.28 mg/L (<8.01); EGFR African American 121.9 (>60); EGFR Non-African American 100.7 (>60); Globulin 3.2 g/dL (2-4); Total Protein 7.8 g/dL (6.4-8.9)
[2019-05-15] MEDS ORDERED: Ketorolac INJ* 30 MG/ML 1 ML VIAL IV PUSH ONE (00:42)
[2019-05-15] MEDS ORDERED: Iohexol 300* (CONTRAST) 10 ML SDV IV ONE (00:49)
[2019-05-15] MEDS ORDERED: NS 0.9% 1000 ML** 2,000 ML IV ONE ×2 (03:30→05:54)
[2019-05-15] MEDS ORDERED: Piperacillin/Tazobac ADVAN(*) 3.375 GM in NS 0.9% 100 ML* 100 ML IVPB ONE (03:30)
[2019-05-15] MEDS ORDERED: Morphine 4 MG/ML VIAL (1 ml) 4 MG/ML VIAL IV ONE (03:57)
[2019-05-15] MEDS ORDERED: Zosyn per Pharmacy* NOTE FOLLOW UP SCH (04:00)
[2019-05-15] MEDS ORDERED: Pantoprazole* 80 mg IN NS 80 MG/250 ML BAG IV ONE (04:22)
[2019-05-15] MEDS ORDERED: Pantoprazole IV* 40 MG IV ONE (04:22)
[2019-05-15] MEDS ORDERED: Bupivacaine 0.25% W/EPI* 10 ML SDV ONE (06:20)
[2019-05-15 06:33] LABS: Urine Bacteria Absent (Absent); Urine Red Blood Cell 3+(>10/hpf) (Absent); Urine White Blood Cell 1+(6-10/hpf) (Absent)
[2019-05-15 06:34] LABS: Urine Appearance Clear; Urine Bilirubin Negative (Negative); Urine Blood Negative (Negative); Urine Glucose Negative (Negative); Urine Ketones 2+ (Negative); Urine Nitrite Negative (Negative); Urine Protein 2+(100 mg/dL) (Negative); Urine Specific Gravity > 1.060 (1.010-1.030); Urine Urobilinogen Positive (Negative)
[2019-05-15 06:35] LABS: Urine Color Yellow
[2019-05-15] MEDS ORDERED: Midazolam* 1 MG/ML 2 ML VIAL (2 MG) ONE (06:44)
[2019-05-15] MEDS ORDERED: fentaNYL* 50 MCG/ML 5 ML VIAL (250 MCG VIAL) ONE (06:44)
[2019-05-15] MEDS ORDERED: Rocuronium* 10 MG/ML VIAL ONE (07:10)
[2019-05-15] MEDS ORDERED: Propofol* 10 MG/ML 20 ML BTL ONE (07:29)
[2019-05-15] MEDS ORDERED: Succinylcholine* 20 MG/ML 10 ML VIAL ONE (07:29)
[2019-05-15] MEDS ORDERED: Lidocaine 2% PF * 5 ML VIAL ONE (07:29)
[2019-05-15] MEDS ORDERED: Etomidate* 2 MG/ML 10 ML VIAL ONE (07:29)
[2019-05-15] MEDS ORDERED: ceFAZolin 2 GM PREMIX in ORs 2 GM/50 ML BAG IVPB ONE (07:30)
--- NOTE | 2019-05-15 08:41 | HP ---
CC: Dr. Davidson Contreras; [facility]; Dr. Jean tejada HISTORY AND PHYSICAL: DATE OF ADMISSION: 05/15/19. The patient is seen in the ER on 05/15/19. HISTORY OF PRESENT ILLNESS: I was contacted by the emergency room staff in the overnight period jules watters Mr. Cardenas, a 59-year-old gentleman, who presented with significantly worsening onset of ab dominal pain, diffuse in nature. This had been the patient's third visit to ER setting in 5 days, al l of which started 4 days following manipulation in the operating room of his right knee for stiff ar throfibrotic right total knee arthroplasty. Studies over this time have included 3 CAT scans with the most recent one being in the overnight aniyah od and I was contacted for concern of an ulcer with free air under the diaphragm. The patient describes taking intermittent pain medications since the procedure, he would usually do t his at night. He was complaining of nausea, vomiting, inability to keep the food down. He presented to the emergency room on previous visits, where he was worked up for this. The patient denied any p revious similar symptoms. The pain would intermittently radiate to the back. It was relieved with ti me and rest until this episode where he has almost minimal relief with narcotics. The patient saw a gastroenterology nurse practitioner yesterday, where he was given an antinausea med ication along with antibiotics and the patient states that the worsening pain that happened approxima tely 9 o'clock last night was after he had taken one of the antibiotics. The patient is passing a lo t of gas, but his bowel movements have not been normal. He has had nausea with vomiting but has not vomited since arriving. Overall, the pain did start on Friday where it was intermittent and since the last night at 10:00 p.m ., it has been persistent and much more severe. PAST MEDICAL HISTORY: Arthritis of the knees. PAST SURGICAL HISTORY: Total knee arthroplasty along with disk manipulation. No other abdominal renée geries. MEDICATIONS: Include: 1. Multivitamins. 2. MiraLAX. 3. Zofran that was recently given. 4. He has been taking tramadol. ALLERGIES: No known drug allergies. FAMILY HISTORY: Father of emphysema who was a longstanding smoker. Mother alive and well. SOCIAL HISTORY: Lives with his . 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 He smoked m arijuana for 30 years but quit approximately 1 year ago. REVIEW OF SYSTEMS: No fevers, no chills. No cardiovascular disease. No cerebrovascular disease. N o irritable bowel symptoms. No complications with bowel movements. No dysuria. No bleeding or clot ting disorders. No endocrine disorders. No psychiatric illnesses. The patient has never been hospi talized other than for the knee surgery. 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 PHYSICAL EXAMINATION GENERAL: He is alert and oriented x3. He is in distress. He is taking shallow breaths. VITAL SIGNS: He has been afebrile since presenting and was afebrile on previous visits. Heart rate on arrival today was 103, this resolved with some pain medication and IV fluids, but he is only recen tly started having heart rates in the 115. Blood pressure is elevated at 162/99. Saturation 91%. HEENT: Mucous membranes are dry. NECK: No lymphadenopathy. LUNGS: Decreased breath sounds, shallow without crackles. ABDOMEN: Tense, tender diffusely with rebound in the upper abdomen and in the mid lower abdomen. Um bilical hernia that is not reducible, but appears fat containing and longstanding. No scars. No mas ses. No CVA tenderness. EXTREMITIES: Show a mild edema that is nonpitting. No cyanosis or clubbing. RECTAL EXAM: Not performed. DIAGNOSTIC STUDIES/LAB DATA: White count 16.4, had been 16.1 five days ago. Elevated H and H. INR 1.27. Metabolic panel reviewed along with LFTs, mildly elevated CRP. Urinalysis shows ketones, no b lood, no nitrites. CAT scan reviewed with images and the report shows free air under the diaphragm on the right side matt ng with free fluid. Colonic diverticulosis without evidence of diverticulitis. No masses are noted. Radiology report questions possibility of a proximal duodenal ulcer. Previous CT scan showed a duo denitis at that location. IMPRESSION: Acute abdomen likely perforated duodenal ulcer, differential for perforated gastric ulce r or perforated diverticulitis. PLAN/RECOMMENDATIONS: My recommendation at this time is urgent operative intervention with diagnosti c laparoscopy to evaluate etiology. If it is perforated ulcer, we will look towards a Flako henson on. This is outlined to the patient. I went over the risks, benefits, and alternatives of the proced ure. We spoke about the complications, which include but not limited to bleeding, infection, need fo r additional surgeries, persistent infection, need for colostomy, sepsis, longstanding hospitalizatio n, ARDS, stroke, and even . The patient understood and signed consent. He will receive antibio tics and has gotten a course while here in the ER. We will continue IV fluids and a Protonix drip gaytan s been started. [id number]/[facility] #: [id number]
[2019-05-15] MEDS ORDERED: fentaNYL* 50 MCG/ML 2 ML VIAL (100 MCG VIAL) ONE (09:55)
[2019-05-15] MEDS ORDERED: Sugammadex * 200 MG/2 ML VIAL IV PUSH ONE (10:26)
[2019-05-15] MEDS ORDERED: Naloxone* 0.4 MG/ML 1 ML VIAL IV PUSH PRN (11:08)
[2019-05-15] MEDS ORDERED: Naloxone* 0.4 MG/ML 1 ML VIAL IV PRN (11:11)
[2019-05-15] MEDS ORDERED: Acetaminophen IV 1GM/100ML * 1,000 MG/100 ML VIAL IVPB ONE (11:11)
--- NOTE | 2019-05-15 11:15 | BRIEFOPN ---
Brief Operative Note - Surgery Procedures: Procedures Pre-OP Diagnoses: acute abdomen Post-op Diagnosis: perforated duodenal ulcer; umbilical hernia Procedure: Diagnostic laparoscopy, laparotomy, kaitlynn plication of duodenal ulcer, pyloric exclusion, Bilroth II gastrojejunostomy, primary umbilical hernia repair Surgeon: Nasreen Jasont: Suly Anethesia: Chapincito Adames EBL: <100cc IVF: 3600cc crystalloid UO: 250cc Specimen: none Drains: 2 @ #10 BENNIE drains
[2019-05-15] MEDS: fentaNYL* 50 MCG/ML 2 ML VIAL (100 MCG VIAL) IV PRN ×2 (11:39→12:04)
[2019-05-15] MEDS ORDERED: HYDROmorphone PCA* 20 MG/20 ML PCA.SYRING PCA SCH ×2 (12:00→19:23)
[2019-05-15] MEDS ORDERED: Morphine PCA ADULT* 5 MG/ML 30 ML PCA SCH (12:00)
[2019-05-15] MEDS: NS 0.9% 1000 ML** 1,000 ML IV SCH ×2 (12:04→18:22)
[2019-05-15] MEDS: Pantoprazole* 80 mg IN NS 80 MG/250 ML BAG IV SCH ×2 (13:46→14:04)
[2019-05-15] MEDS ORDERED: NS 0.9% 500 ML* 500 ML IV ONE ×3 (14:00→20:00)
[2019-05-15] MEDS: Piperacillin/Tazobactam VIAL*) 3.375 GM in NS 0.9% 100 ML* 100 ML IVPB SCH ×2 (14:04→21:57)
[2019-05-15] MEDS: Heparin VIAL(*) 5000 UNITS/ML VIAL (FIVE THOUSAND) SUBCUT SCH ×2 (14:05→22:01)
[2019-05-15 19:41] LABS: ABS Monocytes 0.5 10^3/ul (0-0.8); ABS Neutrophils 11.1 10^3/ul (1.5-7.7); Hematocrit 43 % (42-52); Hemoglobin 14.3 g/dL (14.0-18.0); Lymphocyte % 7.8 %; Mean Corpuscular HGB Conc 34 g/dL (31-36); Mean Corpuscular Hemoglobin 29 pg (27-31); Mean Corpuscular Volume 87 fL (80-94); Mean Platelet Volume 7.8 fL (7.4-10.4); Platelet Count 312 10^3/uL (150-450); Red Blood Count 4.88 10^6 /uL (4.18-5.48); Red Cell Distribution Width 14 % (10-15); White Blood Count 12.6 10^3/uL (3.5-10.8)
[2019-05-15 19:59] LABS: Albumin 2.7 g/dL (3.2-5.2); Albumin/Globulin Ratio 1.4 (1-3); BUN/Creatinine Ratio 13.8 (8-20); EGFR African American 120.1 (>60); EGFR Non-African American 99.3 (>60); Globulin 1.9 g/dL (2-4); Indirect Bilirubin 0.8 mg/dL (0.3-1.0); Magnesium 1.5 mg/dL (1.9-2.7); Phosphorus 3.8 mg/dL (2.5-5.0); Total Bilirubin 2.8 mg/dL (0.2-1.0); Total Protein 4.6 g/dL (6.4-8.9)
--- NOTE | 2019-05-15 21:45 | CONS ---
HOSPITAL MEDICINE CONSULTATION REPORT: DATE OF CONSULT: 05/15/19 ATTENDING PHYSICIAN: Neville Downey MD. CONSULTING PHYSICIAN: All French MD (dictation provided by Laura Taylor NP). REASON FOR CONSULT: Tachycardia in the immediate postoperative setting. HISTORY OF PRESENT ILLNESS: Mr. Cardenas is a 59-year-old male with past medical history only of arthritis to his knees, who presented to the hospital on 05/15/19 with concern for worsening abdominal pain. Please see the dictated H & P from Dr. Downey for complete details. In brief, this has been the patient' s third visit to the ER across 5 days. The patient 4 days ago had had a manipulation in the operating room on his right knee for stiff arthrofibrotic right total knee arthroplasty. Over the course of his visits to the ED, he had multiple abdomen and pelvis CTs. On 04/19/19, he had an abdomen and pelvis CT, which showed the following: "Mild wall thickening in the duodenum and cannot exclude mild duodenitis, there is colonic diverticulosis without evidence for acute diverticulitis." On 05/09/19, the patient had the second abdomen and pelvis CT, which showed "diverticulosis; fatty infiltration of the liver; duodenal mucosal thickening, noted on the previous contrast enhanced examination , is not well visualized on the current examination; fat-containing umbilical hernia; and spondylosis with spondylolisthesis at L5-S1." When the patient presented to the emergency room on 05/14/19, he again had an abdomen and pelvis CT, which now showed the following: "There is significant increase in wall thickening and fat stranding involving the proximal duodenum consistent with duodenitis and there appears to be discontinuity involving the wall, the proximal duodenum is suspicious for duodenal perforation, likely related to peptic ulcer disease. There is also mild free fluid and mild intraperitoneal free air mainly in the upper abdomen and right upper quadrant." For this reason , the patient was seen by Dr. Downey in the emergency room and went on to surgery with Dr. Downey today for perforated duodenum. He ultimately had a laparotomy with a Flako plication of duodenal ulcer, pyloric exclusion, Billroth II gastrojejunostomy, and primary umbilical hernia repair. In the postoperative period, Mr. Cardenas had initially been doing well; however, this afternoon while ambulating, he became tachycardic. His nurse was concerned about his heart rate and noted that he was diaphoretic. The patient himself states he had no concern and did not feel unwell. He was brought back to the room and placed back in bed and hospital medicine was called regarding consultation. At this point, Mr. Cardenas states that his pain is about 4/10 while lying at rest, and he feels this is a good level of pain control for him right now. He denies any complaints. He has no chest pain, no shortness of breath. He had no chest pain or shortness of breath while ambulating. PAST MEDICAL HISTORY: Knee pain, status post manipulation for arthrofibrotic right total knee arthroplasty with Dr. Oliver on 04/14/19. MEDICATIONS: Outpatient are: 1. MiraLAX daily. 2. Zofran p.r.n. 3. Multivitamin 1 tab p.o. daily. 4. Docusate 100 mg p.o. b.i.d. 5. Tylenol p.r.n. 6. Tramadol at bedtime. ALLERGIES: No known drug allergies. FAMILY HISTORY: The patient's father related to emphysema. Mother is alive and well. SOCIAL HISTORY: The patient lives with his . He denies alcohol, tobacco, or drug use. His will be the healthcare proxy. REVIEW OF SYSTEMS: A 14-point review of systems was completed with Mr. Cardenas and all those not mentioned above were negative. PHYSICAL EXAMINATION: Vital Signs: Temperature 97, pulse rate 113, respiratory rate 19, O2 saturation 94% on room air, the patient has 2 L available via mask but is not wearing at the time of my assessment, blood pressure 106/65. General: Mr. Cardenas is lying in bed. He is in no acute distress. Neuro: He is alert. He is oriented x3. He moves all extremities equally. There is no facial asymmetry or focal weakness. Extraocular movements are intact. Heart: S1, S2. No murmur, rub, or gallop. Regular and rapid. Lungs are clear to auscultation bilaterally with no accessory muscle use and good aeration. The abdomen is soft. There is tenderness to deep palpation. There is no rebound. There is no guarding. Extremities: No cyanosis or edema. Skin: The patient has 2 BENNIE drains noted to the abdomen. He has dressing, which shows a faint shadow of serous drainage, but is generally clean, dry, and intact. DIAGNOSTIC STUDIES/LAB DATA: WBC 16.4, hemoglobin 14.5, hematocrit 46, platelet count 347. Sodium 132, potassium 3.5, chloride 93, serum bicarbonate 24, BUN 15, creatinine 0.79, glucose 162. Magnesium 2.3. CRP 18.28. Troponin 0.00. The patient had an EKG, which shows a sinus tachycardia this afternoon with an old right bundle-branch block and a heart rate of 114. ASSESSMENT: Mr. Cardenas is a 59-year-old male who presented to the emergency room again early this morning and found to have a perforated duodenum, now status post surgery with Dr. Downey for a Flako plication of duodenal ulcer, pyloric exclusion, Billroth II gastrojejunostomy, and primary umbilical hernia repair. Today, he was up ambulating when he became somewhat tachycardic, and therefore, Hospital Medicine was called regarding consultation. RECOMMENDATIONS: Our recommendations are as follows: 1. Tachycardia. I suspect that the patient's tachycardia was related to volume depletion in the immediate postoperative period as he is tachycardic and his urine is very concentrated. His blood pressure is running about 106/65. He has had significant fluids during the day today, at least 5 L have gone in since early this morning and may have had more in the OR as well. I would like to gently hydrate with 500 mL boluses through the evening until we can see that his urine output has picked up or that his tachycardia has resolved. Tachycardia could also be due to bleeding and a CBC has been ordered and has not resulted yet. I do think this is less likely given his physical exam today. Low in the differential would be pulmonary embolism, but as these alternate etiologies are more likely, we will continue to work those up, and if he does not improve with hydration and treatment of volume depletion, we will consider workup for a pulmonary embolism. 2. He is postop day #0, status post surgery for duodenal ulcer perforation: Management per Dr. Downey's team. I do note that the patient has pain of at least 4/10 while just lying in bed, and I plan to gently increase his PROSTHODONTIST/OWNER as I think he might do better with slightly better pain control to facilitate mobility. 3. DVT prophylaxis with heparin subcu and SCDs per Surgery. 4. Code status is full code. TIME SPENT: Approximately 60 minutes were spent in the consultation of this patient with more than half the time spent with the patient at the bedside reviewing the events leading up to and during this hospitalization thus far, performing the physical examination, and reviewing my plan of care. LAURA TAYLOR NP [id number]/CPS #: [id number] ANNE
[2019-05-15] MEDS ORDERED: NS 0.9% 1000 ML** 1,000 ML IV ONE (23:18)
[2019-05-15] MEDS ORDERED: Magnesium Sulfate 1 GM IV* 1 GM/100 ML BAG IV ONE (23:18)
[2019-05-16] MEDS ORDERED: Pantoprazole* 80 mg IN NS 80 MG/250 ML BAG IV SCH (00:30)
[2019-05-16] MEDS: Pantoprazole* 80 mg IN NS 80 MG/250 ML BAG IV SCH ×4 (01:06→22:36)
[2019-05-16] MEDS: NS 0.9% 1000 ML** 1,000 ML IV SCH ×3 (05:28→17:04)
[2019-05-16 05:30] LABS: ABS Lymphocytes 0.8 10^3/ul (1.0-4.8); ABS Monocytes 0.5 10^3/ul (0-0.8); ABS Neutrophils 10.3 10^3/ul (1.5-7.7); Eosinophil % 0.1 %; Hematocrit 37 % (42-52); Hemoglobin 12.6 g/dL (14.0-18.0); Lymphocyte % 6.7 %; Mean Corpuscular HGB Conc 34 g/dL (31-36); Mean Corpuscular Hemoglobin 30 pg (27-31); Mean Corpuscular Volume 87 fL (80-94); Mean Platelet Volume 7.6 fL (7.4-10.4); Nucleated Red Blood Cells % 0.1; Platelet Count 243 10^3/uL (150-450); Red Blood Count 4.21 10^6 /uL (4.18-5.48); Red Cell Distribution Width 14 % (10-15); White Blood Count 11.6 10^3/uL (3.5-10.8)
[2019-05-16] MEDS: Piperacillin/Tazobactam VIAL*) 3.375 GM in NS 0.9% 100 ML* 100 ML IVPB SCH ×3 (05:31→21:36)
[2019-05-16] MEDS: Heparin VIAL(*) 5000 UNITS/ML VIAL (FIVE THOUSAND) SUBCUT SCH ×3 (05:33→21:24)
[2019-05-16 06:07] LABS: Albumin 2.3 g/dL (3.2-5.2); Calcium 7.7 mg/dL (8.6-10.3); Potassium 3.7 mmol/L (3.5-5.0); Total Bilirubin 2.1 mg/dL (0.2-1.0)
[2019-05-16 06:28] LABS: Albumin/Globulin Ratio 1.2 (1-3); BUN/Creatinine Ratio 11.9 (8-20); C Reactive Protein 284.35 mg/L (<8.01); EGFR African American 147.4 (>60); EGFR Non-African American 121.8 (>60); Globulin 1.9 g/dL (2-4); Total Protein 4.2 g/dL (6.4-8.9)
[2019-05-16] MEDS: KCL 20 MEQ/100 ML IVPREMIX* 20 MEQ/100 ML BAG IV SCH ×2 (10:19→14:11)
[2019-05-16] MEDS ORDERED: Metoprolol Tartrate IV* 1 MG/ML 5 ML VIAL IV PRN (10:28)
--- NOTE | 2019-05-16 10:35 | PN ---
Subjective Date of Service: 05/16/19 Interval History: Patient reports pain with inspiration at LUQ, which is limiting his ability to take deep respirations. He reports feeling "winded" when walking. He denies chest pain, fever/chills, nausea. Objective Active Medications: Heparin Sodium (Porcine) (Heparin Vial(*)) 5,000 units SUBCUT Q8HR [facility] Last Admin: 05/16/19 05:33 Dose: 5,000 units Piperacillin Sod/Tazobactam (Sod 3.375 gm/ Sodium Chloride) 100 mls @ 25 mls/ hr IVPB Q8H [facility] Last Admin: 05/16/19 05:31 Dose: 25 mls/hr Hydromorphone HCl (Dilaudid Client Care Consultant*) 20 mg in 20 mls @ 0 mls/hr ROUTE SALES SPECIALIST .change Q24H [facility]; Protocol Pantoprazole Sodium (Protonix Iv Bag*) 80 mg in 250 mls @ 25 mls/hr IV Q10H [facility] Last Admin: 05/16/19 01:06 Dose: 25 mls/hr Sodium Chloride (Ns 0.9% 1000 Ml) 1,000 mls @ 75 mls/hr IV .PER RATE [facility] Last Admin: 05/16/19 08:30 Dose: 75 mls/hr Potassium Chloride (Potassium Chloride 20 Meq/100 Ml Ivpremix*) 20 meq in 100 mls @ 50 mls/hr IV Q2H [facility] Stop: 05/16/19 13:59 Last Admin: 05/16/19 10:19 Dose: 50 mls/hr Pharmacy Consult (Zosyn Per Pharmacy*) 1 note FOLLOW UP .ZOSYN PER PHARMACY [facility] Vital Signs - 8 hr 05/16/19 05/16/19 05/16/19 03:59 04:00 08:00 Temperature 99.1 F Pulse Rate 112 Respiratory 18 18 18 Rate Blood Pressure 129/67 (mmHg) O2 Sat by Pulse 96 96 96 Oximetry 05/16/19 08:19 Temperature 99.7 F Pulse Rate 119 Respiratory 24 Rate Blood Pressure 129/72 (mmHg) O2 Sat by Pulse 96 Oximetry Oxygen Devices in Use Now: OxyMask Appearance: WD/WN white male, laying upright in hospital bed, appearing uncomfortable but in NAD Eyes: No Scleral Icterus, PERRLA Ears/Nose/Mouth/Throat: Mucous Membranes Moist, - - NG tube in place Neck: NL Appearance and Movements; NL JVP Respiratory: Symmetrical Chest Expansion and Respiratory Effort, - - rhonchi in anterior lung hightower and bilateral lung bases Cardiovascular: NL Sounds; No Murmurs; No JVD, - - regular rhythm, tachycardic Abdominal: - - Dressings over bilateral upper quadrants of abdomen; [address]; TTP at LUQ and RUQ; minimally distended Extremities: No Edema, No Clubbing, Cyanosis, - - no calf tenderness Skin: No Rash or Ulcers Neurological: Alert and Oriented x 3, NL Muscle Strength and Tone Result Diagrams: 05/16/19 05:16 05/16/19 05:16 Microbiology and Other Data: Microbiology 05/15/19 06:15 Urine Culture - Final Urine No Growth (<1,000 CFU/mL) Assess/Plan/Problems-Billing Assessment: 59 yo white male with PMHx osteoarthritis of knee presents to the ED after several ED visits with persistent abdominal pain, found to have a perforated duodenal ulcer. S/p laparotomy with Flako plication, pyloric exclusion, umbilical hernia repair, and Biliroth II gastrojejunostomy with Dr. Downey. [facility] medicine has been consulted for postoperative tachycardia. - Patient Problems (1) Pleural effusion Code(s): J90 - PLEURAL EFFUSION, NOT ELSEWHERE CLASSIFIED SNOMED Code(s): 08486205 Comment: -moderate right sided and small left sided pleural effusions found on CTA today -likely contributing to some right heart strain, which may be the cause of tachycardia -likely cause of hypoxia -will continue to monitor respiratory status and reimage if necessary to follow size; at this time thoracentesis is not necessary (2) Tachycardia Code(s): R00.0 - TACHYCARDIA, UNSPECIFIED SNOMED Code(s): 3870913 Comment: -repeat EKG today demonstrates sinus tachycardia without evidence of ischemia; there is a RBBB which is consistent with prior EKG in Dec 2018 found in outpatient EMR -telemetry demonstrates persistent tachycardia over 110s without events other than PVCs -CTA chest does not demonstrate PE -ordered metoprolol 2.5 mg IV q4h scheduled with holding parameters -keep K>4 and Mg>2 -K is 3.7 today, replacing; Mg is 1.8, replacing -continue tele -checking TSH and free T4 (3) Hypoxia Code(s): R09.02 - HYPOXEMIA SNOMED Code(s): 134284292 Comment: -patient with hypoxia to 89-92% on RA, currently good O2sats on 2L NC -PE has been ruled out -likely caused by pleural effusions -ordered flutter valve and incentive spirometry (4) Perforated duodenal ulcer Code(s): K26.5 - CHRONIC OR UNSPECIFIED DUODENAL ULCER WITH PERFORATION SNOMED Code(s): 80700374 Comment: -S/p laparotomy with Flako plication, pyloric exclusion, umbilical hernia repair, and Biliroth II gastrojejunostomy with Dr. Downey on 05/15/19 -currently NPO with NG tube -receiving zosyn and dilaudid ROUTE SALES SPECIALIST, patient feels pain controlled to comfortable level with current ROUTE SALES SPECIALIST dose -mgmt per gen surg team (5) DVT prophylaxis Code(s): Z29.9 - ENCOUNTER FOR PROPHYLACTIC MEASURES, UNSPECIFIED SNOMED Code( s): 087598668 Comment: -heparin subQ (6) Full code status Code(s): Z78.9 - OTHER SPECIFIED HEALTH STATUS SNOMED Code(s): 771907050 Status and Disposition: disposition per primary team, general surgery
--- NOTE | 2019-05-16 11:30 | PN ---
Progress Note - Progress Note Date of Service: 05/16/19 SOAP: Subjective: []postop incisional discomfort Objective: [] Laboratory Last Values WBC 11.6 10^3/uL (3.5-10.8) H 05/16/19 05:16 RBC 4.21 10^6 /uL (4.18-5.48) 05/16/19 05:16 Hgb 12.6 g/dL (14.0-18.0) L 05/16/19 05:16 Hct 37 % (42-52) L 05/16/19 05:16 MCV 87 fL (80-94) 05/16/19 05:16 MCH 30 pg (27-31) 05/16/19 05:16 MCHC 34 g/dL (31-36) 05/16/19 05:16 RDW 14 % (10-15) 05/16/19 05:16 Plt Count 243 10^3/uL (150-450) 05/16/19 05:16 MPV 7.6 fL (7.4-10.4) 05/16/19 05:16 Neut % (Auto) 88.9 % 05/16/19 05:16 Lymph % (Auto) 6.7 % 05/16/19 05:16 [place] % (Auto) 4.1 % 05/16/19 05:16 Eos % (Auto) 0.1 % 05/16/19 05:16 Baso % (Auto) 0.2 % 05/16/19 05:16 Absolute Neuts (auto) 10.3 10^3/ul (1.5-7.7) H 05/16/19 05:16 Absolute Lymphs (auto) 0.8 10^3/ul (1.0-4.8) L 05/16/19 05:16 Absolute Monos (auto) 0.5 10^3/ul (0-0.8) 05/16/19 05:16 Absolute Eos (auto) 0.0 10^3/ul (0-0.6) 05/16/19 05:16 Absolute Basos (auto) 0.0 10^3/ul (0-0.2) 05/16/19 05:16 Absolute Nucleated RBC 0.0 10^3/ul 05/16/19 05:16 Nucleated RBC % 0.1 05/16/19 05:16 INR (Anticoag Therapy) 1.27 (0.82-1.09) H 05/14/19 23:48 APTT 49.1 seconds (26.0-38.0) H 05/14/19 23:48 D-Dimer, Quantitative > 1050 ng/mL (Less Than 230) H 05/16/19 09:27 Sodium 136 mmol/L (135-145) 05/16/19 05:16 Potassium 3.7 mmol/L (3.5-5.0) 05/16/19 05:16 Chloride 110 mmol/L (101-111) 05/16/19 05:16 Carbon Dioxide 19 mmol/L (22-32) L 05/16/19 05:16 Anion Gap 7 mmol/L (2-11) 05/16/19 05:16 BUN 8 mg/dL (6-24) 05/16/19 05:16 Creatinine 0.67 mg/dL (0.67-1.17) 05/16/19 05:16 Est GFR ( Amer) 147.4 (>60) 05/16/19 05:16 Est GFR (Non-Af Amer) 121.8 (>60) 05/16/19 05:16 BUN/Creatinine Ratio 11.9 (8-20) 05/16/19 05:16 Glucose 103 mg/dL (70-100) H 05/16/19 05:16 Lactic Acid 1.7 mmol/L (0.5-2.0) 05/15/19 19:22 Calcium 7.7 mg/dL (8.6-10.3) L 05/16/19 05:16 Phosphorus 3.8 mg/dL (2.5-5.0) 05/15/19 19:22 Magnesium 1.5 mg/dL (1.9-2.7) L 05/15/19 19:22 Total Bilirubin 2.10 mg/dL (0.2-1.0) H 05/16/19 05:16 Direct Bilirubin 2.00 mg/dL (0.03-0.18) H 05/15/19 19:22 Indirect Bilirubin 0.8 mg/dL (0.3-1.0) 05/15/19 19:22 AST 12 U/L (13-39) L 05/16/19 05:16 ALT 19 U/L (7-52) 05/16/19 05:16 Alkaline Phosphatase 44 U/L (34-104) 05/16/19 05:16 Total Creatine Kinase 26 U/L (10-223) 05/14/19 23:48 Troponin I 0.00 ng/mL (<0.04) 05/14/19 23:48 C-Reactive Protein 284.35 mg/L (<8.01) H 05/16/19 05:16 B-Natriuretic Peptide 19 pg/mL (<=100) 05/14/19 23:48 Total Protein 4.2 g/dL (6.4-8.9) L 05/16/19 05:16 Albumin 2.3 g/dL (3.2-5.2) L 05/16/19 05:16 Globulin 1.9 g/dL (2-4) L 05/16/19 05:16 Albumin/Globulin Ratio 1.2 (1-3) 05/16/19 05:16 Amylase 32 U/L (29-103) 05/14/19 23:48 Lipase 172 U/L (11.0-82.0) H 05/16/19 05:16 Urine Color Yellow 05/15/19 06:15 Urine Appearance Clear 05/15/19 06:15 Urine pH 7.0 (5-9) 05/15/19 06:15 Ur Specific [place] > 1.060 (1.010-1.030) H 05/15/19 06:15 Urine Protein 2+(100 mg/dl) (Negative) A 05/15/19 06:15 Urine Ketones 2+ (Negative) A 05/15/19 06:15 Urine Blood Negative (Negative) 05/15/19 06:15 Urine Nitrate Negative (Negative) 05/15/19 06:15 Urine Bilirubin Negative (Negative) 05/15/19 06:15 Urine Urobilinogen Positive (Negative) A 05/15/19 06:15 Ur Leukocyte Esterase Negative (Negative) 05/15/19 06:15 Urine WBC (Auto) 1+(6-10/hpf) (Absent) A 05/15/19 06:15 Urine RBC (Auto) 3+(>10/hpf) (Absent) A 05/15/19 06:15 Urine Bacteria Absent (Absent) 05/15/19 06:15 Urine Glucose Negative (Negative) 05/15/19 06:15 Urine Ascorbic Acid Not Reportable 05/15/19 06:15 Temp Pulse Resp BP Pulse Ox 99.7 F 119 24 129/72 96 05/16/19 08:19 05/16/19 08:19 05/16/19 08:19 05/16/19 08:19 05/16/19 08:19 Intake & Output 05/14/19 05/15/19 05/16/19 05/17/19 06:59 06:59 06:59 06:59 Intake Total 2120 8157 Output Total 2505 725 Balance 2120 5652 -725 Weight 180 lb 180 lb Intake: IV Fluids 2120 6999 NS 3349 NS 50ML, Cefazolin 2G 50 lr 3600 IVPB 580 NS 580 Medicated IV 578 Zosyn 108 pantoprazole 470 Oral 0 Output: NG Tube Drainage Amount 500 625 BENNIE #1 210 90 BENNIE #2 195 10 Baez 1400 Estimated Blood Loss 200 Assessment: []stable postop Plan: []cont iv,abx,ng increase activity
[2019-05-16] MEDS ORDERED: Iohexol 350* (CONTRAST) 500 ML MDV IV ONE (12:00)
[2019-05-16 14:12] LABS: Magnesium 1.7 mg/dL (1.9-2.7)
[2019-05-16] MEDS ORDERED: Magnesium Sulfate 2 GM IV* 2 GM/50 ML BAG IVPB ONE (16:31)
[2019-05-16] MEDS: Metoprolol Tartrate IV* 1 MG/ML 5 ML VIAL IV SCH ×2 (17:04→21:29)
[2019-05-16 17:13] LABS: TSH (Thyroid Stimulating Horm) 0.69 mcIU/mL (0.34-5.60)
[2019-05-16 17:17] LABS: Free T4 1.88 ng/dL (0.61-1.12)
[2019-05-17] MEDS: Metoprolol Tartrate IV* 1 MG/ML 5 ML VIAL IV SCH ×7 (00:53→20:14)
[2019-05-17] MEDS: Heparin VIAL(*) 5000 UNITS/ML VIAL (FIVE THOUSAND) SUBCUT SCH ×3 (05:32→22:04)
[2019-05-17] MEDS: Piperacillin/Tazobactam VIAL*) 3.375 GM in NS 0.9% 100 ML* 100 ML IVPB SCH ×3 (05:37→22:04)
[2019-05-17 05:49] LABS: ABS Eosinophils 0.1 10^3/ul (0-0.6); ABS Lymphocytes 0.9 10^3/ul (1.0-4.8); ABS Monocytes 0.7 10^3/ul (0-0.8); ABS Neutrophils 12.9 10^3/ul (1.5-7.7); Eosinophil % 0.5 %; Hematocrit 34 % (42-52); Hemoglobin 11.9 g/dL (14.0-18.0); Lymphocyte % 6.1 %; Mean Corpuscular HGB Conc 35 g/dL (31-36); Mean Corpuscular Hemoglobin 30 pg (27-31); Mean Corpuscular Volume 87 fL (80-94); Mean Platelet Volume 7.6 fL (7.4-10.4); Platelet Count 267 10^3/uL (150-450); Red Blood Count 3.96 10^6 /uL (4.18-5.48); Red Cell Distribution Width 14 % (10-15); White Blood Count 14.6 10^3/uL (3.5-10.8)
[2019-05-17 05:57] LABS: INR 1.86 (0.82-1.09)
[2019-05-17 06:09] LABS: Albumin 2.6 g/dL (3.2-5.2); BUN/Creatinine Ratio 14.9 (8-20); Calcium 8.3 mg/dL (8.6-10.3); EGFR African American 147.4 (>60); EGFR Non-African American 121.8 (>60); Globulin 2.5 g/dL (2-4); Phosphorus 2.3 mg/dL (2.5-5.0); Potassium 3.5 mmol/L (3.5-5.0); Total Bilirubin 1.7 mg/dL (0.2-1.0); Total Protein 5.1 g/dL (6.4-8.9)
[2019-05-17] MEDS: NS 0.9% 1000 ML** 1,000 ML IV SCH (07:10)
[2019-05-17] MEDS: Pantoprazole* 80 mg IN NS 80 MG/250 ML BAG IV SCH ×2 (09:53→20:20)
[2019-05-17] MEDS: KCL 20 MEQ/100 ML IVPREMIX* 20 MEQ/100 ML BAG IV SCH ×3 (09:53→18:23)
--- NOTE | 2019-05-17 10:41 | PN ---
Subjective Date of Service: 05/17/19 Interval History: Patient is feeling that his pain is improved today and he is able to take a deeper breath because of that. Denies chest pain, palpitations, shortness of breath, tachycardia, nausea, fever/chills. He has abd pain at site of incision. Objective Active Medications: Heparin Sodium (Porcine) (Heparin Vial(*)) 5,000 units SUBCUT Q8HR [facility] Last Admin: 05/17/19 05:32 Dose: 5,000 units Piperacillin Sod/Tazobactam (Sod 3.375 gm/ Sodium Chloride) 100 mls @ 25 mls/ hr IVPB Q8H [facility] Last Admin: 05/17/19 05:37 Dose: 25 mls/hr Hydromorphone HCl (Dilaudid Compensation And Benefits Analyst*) 20 mg in 20 mls @ 0 mls/hr CHIEF OF PEDIATRIC UROLOGY .change Q24H [facility]; Protocol Pantoprazole Sodium (Protonix Iv Bag*) 80 mg in 250 mls @ 25 mls/hr IV Q10H [facility] Last Admin: 05/17/19 09:53 Dose: 25 mls/hr Sodium Chloride (Ns 0.9% 1000 Ml) 1,000 mls @ 75 mls/hr IV .PER RATE [facility] Last Admin: 05/17/19 07:10 Dose: 75 mls/hr Potassium Chloride (Potassium Chloride 20 Meq/100 Ml Ivpremix*) 20 meq in 100 mls @ 50 mls/hr IV Q2H [facility] Stop: 05/17/19 14:59 Last Admin: 05/17/19 09:53 Dose: 50 mls/hr Metoprolol Tartrate (Lopressor Iv*) 5 mg IV Q4H [facility] Pharmacy Consult (Zosyn Per Pharmacy*) 1 note FOLLOW UP .ZOSYN PER PHARMACY [facility] Vital Signs - 8 hr 05/17/19 05/17/19 05/17/19 03:28 05:47 07:51 Temperature 97.7 F 98.1 F Pulse Rate 110 102 Respiratory 18 20 23 Rate Blood Pressure 132/70 129/70 (mmHg) O2 Sat by Pulse 95 95 95 Oximetry Appearance: Middle aged white male laying upright in hospital bed appearing in NAD Eyes: PERRLA Ears/Nose/Mouth/Throat: Mucous Membranes Moist, - - NG tube in place Neck: NL Appearance and Movements; NL JVP Respiratory: Symmetrical Chest Expansion and Respiratory Effort, - - Rhonchi throughout right lung and in left upper lobe Cardiovascular: NL Sounds; No Murmurs; No JVD, - - regular rhythm, tachycardic to ~100 bpm Abdominal: - - abdomen is soft, nontender, nondistended; 2 BENNIE drains present, tenderness to left upper quadrant Extremities: No Edema, No Clubbing, Cyanosis, - - neg calf tenderness Skin: No Rash or Ulcers Neurological: Alert and Oriented x 3, NL Muscle Strength and Tone - Nutrition: Malnutrition Diagnosis/Plan Malnutrition Assessment by Registered Dietitian: Malnutrition Assessment Clinical Characteristics Acute,Severe Malnutrition Assessment: - severe wt loss (7.6% in past two weeks) Criteria - po intake only <50% EEE for > 5 days - pt limited to small amounts of clear liquids x 2 weeks Malnutrition Assessment: 1. IVFs, abx, electrolyte replacement Interventions 2. Cont NPO w/NGT 3. Gradual progression of po diet when NGT able to be d/c'd 4. Possible supplementation when po diet resumes Malnutrition Assessment: Goals 1. pt will tolerate post-op diet progression without adverse GI effects 2. adequate po intake to maintain stable wt, lean body mass, and hydration 3. achieve and maintain serum electrolytes levels WNL 4. achieve and maintain regulated bowel pattern without c/o constipation (or diarrhea) Result Diagrams: 05/17/19 05:42 05/17/19 05:42 Microbiology and Other Data: Microbiology 05/15/19 06:15 Urine Culture - Final Urine No Growth (<1,000 CFU/mL) Assess/Plan/Problems-Billing Assessment: 59 yo white male with PMHx osteoarthritis of knee presents to the ED after several ED visits with persistent abdominal pain, found to have a perforated duodenal ulcer. S/p laparotomy with Flako plication, pyloric exclusion, umbilical hernia repair, and Biliroth II gastrojejunostomy with Dr. Downey. [facility] medicine has been consulted for postoperative tachycardia. - Patient Problems (1) Pleural effusion Code(s): J90 - PLEURAL EFFUSION, NOT ELSEWHERE CLASSIFIED SNOMED Code(s): 45832087 Comment: -moderate right sided and small left sided pleural effusions found on CTA today -likely contributing to some right heart strain, which may be the cause of tachycardia -likely cause of hypoxia -will continue to monitor respiratory status and reimage if necessary to follow size; at this time thoracentesis is not necessary -continue incentive spirometry and flutter valve; encouraged (2) Tachycardia Code(s): R00.0 - TACHYCARDIA, UNSPECIFIED SNOMED Code(s): 8038337 Comment: -repeat EKG today demonstrates sinus tachycardia without evidence of ischemia; there is a RBBB which is consistent with prior EKG in Dec 2018 found in outpatient EMR -telemetry demonstrates persistent tachycardia over 110s without events other than PVCs -CTA chest does not demonstrate PE -keep K>4 and Mg>2 -replacing K today -will change NS to LR to maintain K -continue tele -TSH and free t4 demonstrate euthyroid hyperthyroxinemia, which does not cause tachycardia -increasing metoprolol to 5 mg IV q4h scheduled with same holding parameters -likely related to postoperative state and pleural effusion (3) Hypoxia Code(s): R09.02 - HYPOXEMIA SNOMED Code(s): 706801720 Comment: -patient with hypoxia to 89-92% on RA, currently good O2sats on 2L NC -PE has been ruled out -likely caused by pleural effusions -ordered flutter valve and incentive spirometry (4) Perforated duodenal ulcer Code(s): K26.5 - CHRONIC OR UNSPECIFIED DUODENAL ULCER WITH PERFORATION SNOMED Code(s): 58153986 Comment: -S/p laparotomy with Flako plication, pyloric exclusion, umbilical hernia repair, and Biliroth II gastrojejunostomy with Dr. Downey on 05/15/19 -currently NPO with NG tube, pending NG tube removal per Dr. Downey's orders -receiving zosyn and dilaudid CHIEF OF PEDIATRIC UROLOGY, patient feels pain controlled to comfortable level with current CHIEF OF PEDIATRIC UROLOGY dose -mgmt per gen surg team (5) Abnormal serum thyroxine (T4) level Code(s): R79.9 - ABNORMAL FINDING OF BLOOD CHEMISTRY, UNSPECIFIED SNOMED Code( s): 576496835 Comment: -TSH wnl with minimally elevated free T4 to 1.88 represents euthyroid hyperthyroidism, which is asymptomatic and is not the cause of his tachycardia -likely due to low albumin and postoperative state, should be followed up with PCP 6 weeks after discharge (6) DVT prophylaxis Code(s): Z29.9 - ENCOUNTER FOR PROPHYLACTIC MEASURES, UNSPECIFIED SNOMED Code( s): 347310027 Comment: -heparin subQ (7) Full code status Code(s): Z78.9 - OTHER SPECIFIED HEALTH STATUS SNOMED Code(s): 188751332 Status and Disposition: disposition per primary team, general surgery
--- NOTE | 2019-05-17 18:28 | PN ---
Progress Note - Progress Note Date of Service: 05/17/19 SOAP: Subjective: Pt seen and examined earlier today and again just now. Feeling better. voided. ambulated Objective: Temp Pulse Resp BP Pulse Ox 97.8 F 99 18 135/74 93 05/17/19 15:51 05/17/19 15:51 05/17/19 15:51 05/17/19 15:51 05/17/19 15:51 Intake & Output 05/17/19 05/17/19 05/17/19 06:59 14:59 22:59 Intake Total 0 1183 100 Output Total 1950 460 350 Balance -1950 723 -250 NGT: bilious output a and ox3 abdo: soft/ distended/ tender diffusely, w/o rebound drains serous ext: edema- non-pitting labs noted. lipase [place]; wbc up Assessment: POD 2 perf DU; HD stable Plan: OOB pain control UGI in am O2 NC abx ppi dvt proph
[2019-05-17] MEDS ORDERED: NS 0.9% 100 ML* 100 ML ONE (22:02)
[2019-05-17] MEDS: Lactated Ringers 1000 ML Bag* 1,000 ML IV SCH (22:05)
[2019-05-18] MEDS: Metoprolol Tartrate IV* 1 MG/ML 5 ML VIAL IV SCH ×4 (00:09→12:34)
[2019-05-18] MEDS: Heparin VIAL(*) 5000 UNITS/ML VIAL (FIVE THOUSAND) SUBCUT SCH ×3 (05:41→22:03)
[2019-05-18] MEDS: Piperacillin/Tazobactam VIAL*) 3.375 GM in NS 0.9% 100 ML* 100 ML IVPB SCH ×3 (05:41→21:59)
[2019-05-18] MEDS: Pantoprazole* 80 mg IN NS 80 MG/250 ML BAG IV SCH ×2 (07:28→22:01)
[2019-05-18] MEDS: Lactated Ringers 1000 ML Bag* 1,000 ML IV SCH (13:27)
[2019-05-18] MEDS ORDERED: NS 0.9% 100 ML* 100 ML ONE (14:08)
[2019-05-18 16:03] LABS: Thyroxine Binding Globulin 20 mcg/mL (12-26)
--- NOTE | 2019-05-18 16:03 | PN ---
Progress Note - Progress Note Date of Service: 05/18/19 SOAP: Subjective: []Patient seen and examined. No nausea. Mild Burping No flatus. no bowel movement. Patient feels that he is improving. He is out of bed and voiding on his own. Objective: Temp Pulse Resp BP Pulse Ox 97.6 F 104 18 136/76 96 05/18/19 11:30 05/18/19 11:30 05/18/19 14:00 05/18/19 11:30 05/18/19 14:00 Intake & Output 05/18/19 05/18/19 05/18/19 06:59 14:59 22:59 Intake Total 110 1411 Output Total 460 480 Balance -350 931 Alert and oriented 3, no apparent distress abdomen: Soft, tenderness, incisional tenderness. Staple line intact with no redness. BENNIE drains serosanguineous. Extremities less edema. Upper GI with slow passage into the jejunum. No leak. No labs today. Assessment: Postop day 3 from exploratory laparotomy, Flako patch of large perforated duodenal ulcer, and Billroth II reconstruction. Still tachycardic at times. But overall hemodynamically stable. Requiring 2 L nasal cannula. Plan: Clears change IV fluids. Labs in the morning.
[2019-05-18] MEDS ORDERED: Morphine INJ* 2 MG/ML 1 ML SYRINGE (TWO MG - NEW SYRINGE VERSION) IV PRN (16:05)
[2019-05-18] MEDS ORDERED: Ketorolac INJ* 30 MG/ML 1 ML VIAL IV PUSH PRN (16:06)
--- NOTE | 2019-05-18 16:40 | PN ---
Subjective Date of Service: 05/18/19 Interval History: Pain present but well controlled on SENIOR JAVA PROGRAMMER ANALYST No N/V Excited to have sips of clears today OOB around unit x 2 yesterday with plans to go again today Objective Active Medications: Heparin Sodium (Porcine) (Heparin Vial(*)) 5,000 units SUBCUT Q8HR [facility] Last Admin: 05/18/19 14:20 Dose: 5,000 units Piperacillin Sod/Tazobactam (Sod 3.375 gm/ Sodium Chloride) 100 mls @ 25 mls/ hr IVPB Q8H [facility] Last Admin: 05/18/19 14:22 Dose: 25 mls/hr Pantoprazole Sodium (Protonix Iv Bag*) 80 mg in 250 mls @ 25 mls/hr IV Q10H [facility] Last Admin: 05/18/19 07:28 Dose: 25 mls/hr Potassium Chloride/Dextrose (D5w 1/2 Ns Kcl 20 Meq 1000 Ml*) 1,000 mls @ 100 mls/hr IV PER RATE [facility] Ketorolac Tromethamine (Toradol Inj*) 30 mg IV PUSH Q6H PRN PRN Reason: PAIN Morphine Sulfate (Morphine Inj (Syringe))*) 1 mg IV Q2H PRN PRN Reason: PAIN Pharmacy Consult (Zosyn Per Pharmacy*) 1 note FOLLOW UP .ZOSYN PER PHARMACY [facility] Vital Signs - 8 hr 05/18/19 05/18/19 05/18/19 10:00 11:30 12:00 Temperature 97.6 F Pulse Rate 104 Respiratory 18 18 18 Rate Blood Pressure 136/76 (mmHg) O2 Sat by Pulse 95 95 96 Oximetry 05/18/19 14:00 Temperature Pulse Rate Respiratory 18 Rate Blood Pressure (mmHg) O2 Sat by Pulse 96 Oximetry Oxygen Devices in Use Now: Nasal Cannula - 2L Appearance: NAD Eyes: No Scleral Icterus, PERRLA Ears/Nose/Mouth/Throat: NL Teeth, Lips, Gums, Clear Oropharnyx, Mucous Membranes Moist Neck: NL Appearance and Movements; NL JVP, Trachea Midline Respiratory: Symmetrical Chest Expansion and Respiratory Effort, - - decreased right base Cardiovascular: - - tachy, regular Abdominal: - - TTP throughout, mild distention, [address], mildline incision c/d/i Neurological: Alert and Oriented x 3 - Nutrition: Malnutrition Diagnosis/Plan Malnutrition Assessment by Registered Dietitian: Malnutrition Assessment Clinical Characteristics Acute,Severe Malnutrition Assessment: - severe wt loss (7.6% in past two weeks) Criteria - po intake only <50% EEE for > 5 days - pt limited to small amounts of clear liquids x 2 weeks Malnutrition Assessment: 1. IVFs, abx, electrolyte replacement Interventions 2. Cont NPO w/NGT 3. Gradual progression of po diet when NGT able to be d/c'd 4. Possible supplementation when po diet resumes Malnutrition Assessment: Goals 1. pt will tolerate post-op diet progression without adverse GI effects 2. adequate po intake to maintain stable wt, lean body mass, and hydration 3. achieve and maintain serum electrolytes levels WNL 4. achieve and maintain regulated bowel pattern without c/o constipation (or diarrhea) Result Diagrams: 05/17/19 05:42 05/17/19 05:42 Microbiology and Other Data: Microbiology 05/15/19 06:15 Urine Culture - Final Urine No Growth (<1,000 CFU/mL) Assess/Plan/Problems-Billing Assessment: 59 yo M p/w abd pain found with perforated duodenal ulcer s/p ex- lap with Flako patch, pyloric exclusion, umbilical hernia repair, and Biliroth II gastrojejunostomy with Dr. Downey. Hospital medicine has been consulted for postoperative tachycardia. - Patient Problems (1) Abnormal serum thyroxine (T4) level Comment: -TSH wnl with minimally elevated free T4 is euthyroid hyperthyroidism - not cause of tachycardia -needs follow up with PCP 6 weeks after discharge (2) Hypoxia Comment: -requiring 2L O2 -PE unlikely after CTA -suspect pleural effusions and atelectasis -c/w flutter valve, incentive spirometry and ambulation (3) Perforated duodenal ulcer Comment: -S/p Herve on 05/15/19 -zosyn and dilaudid SENIOR JAVA PROGRAMMER ANALYST -mgmt per gen surg team (4) Pleural effusion Comment: -moderate right sided and small left sided pleural effusions seen on CTA -contributing to tachycardia and hypoxia but both stable and does not require thora -continue incentive spirometry and flutter valve; encourage ambulation (5) Tachycardia Comment: -RBBB not new -suspect in setting of above surgery, pain, pleural effusions/atelectasis -CTA chest does not demonstrate PE -stop standing metoprolol IV today and treat underlying causes (6) DVT prophylaxis Comment: -heparin subQ Status and Disposition: disposition per primary team, general surgery
[2019-05-18] MEDS: D5W 1/2 NS KCl 20 Meq 1000 ML* 1,000 ML IV SCH (17:08)
[2019-05-19] MEDS: Pantoprazole* 80 mg IN NS 80 MG/250 ML BAG IV SCH ×3 (00:52→18:44)
[2019-05-19] MEDS: D5W 1/2 NS KCl 20 Meq 1000 ML* 1,000 ML IV SCH ×2 (03:26→13:27)
[2019-05-19] MEDS: Heparin VIAL(*) 5000 UNITS/ML VIAL (FIVE THOUSAND) SUBCUT SCH ×3 (05:53→21:43)
[2019-05-19] MEDS: Piperacillin/Tazobactam VIAL*) 3.375 GM in NS 0.9% 100 ML* 100 ML IVPB SCH ×3 (05:56→21:44)
[2019-05-19 06:58] LABS: ABS Lymphocytes 0.7 10^3/ul (1.0-4.8); ABS Monocytes 0.7 10^3/ul (0-0.8); ABS Neutrophils 8.1 10^3/ul (1.5-7.7); Eosinophil % 0.2 %; Hematocrit 29 % (42-52); Hemoglobin 10.2 g/dL (14.0-18.0); Mean Corpuscular HGB Conc 36 g/dL (31-36); Mean Corpuscular Hemoglobin 31 pg (27-31); Mean Corpuscular Volume 86 fL (80-94); Mean Platelet Volume 7.1 fL (7.4-10.4); Platelet Count 223 10^3/uL (150-450); Red Blood Count 3.34 10^6 /uL (4.18-5.48); Red Cell Distribution Width 14 % (10-15); White Blood Count 9.5 10^3/uL (3.5-10.8)
[2019-05-19 07:13] LABS: BUN/Creatinine Ratio 8.9 (8-20); Calcium 7.7 mg/dL (8.6-10.3); EGFR African American 181.3 (>60); EGFR Non-African American 149.9 (>60); Magnesium 1.7 mg/dL (1.9-2.7); Phosphorus 2.4 mg/dL (2.5-5.0); Potassium 2.8 mmol/L (3.5-5.0)
[2019-05-19] MEDS ORDERED: Magnesium Sulfate 1 GM IV* 1 GM/100 ML BAG IV ONE (07:29)
--- NOTE | 2019-05-19 08:10 | PN ---
Subjective Date of Service: 05/19/19 Interval History: 2 BMs yesterday OOB walking No N/V Pain well controlled Feels he is able to take deeper breaths today Objective Active Medications: Heparin Sodium (Porcine) (Heparin Vial(*)) 5,000 units SUBCUT Q8HR [facility] Last Admin: 05/19/19 05:53 Dose: 5,000 units Piperacillin Sod/Tazobactam (Sod 3.375 gm/ Sodium Chloride) 100 mls @ 25 mls/ hr IVPB Q8H [facility] Last Admin: 05/19/19 05:56 Dose: 25 mls/hr Pantoprazole Sodium (Protonix Iv Bag*) 80 mg in 250 mls @ 25 mls/hr IV Q10H [facility] Last Admin: 05/19/19 00:52 Dose: Not Given Potassium Chloride/Dextrose (D5w 1/2 Ns Kcl 20 Meq 1000 Ml*) 1,000 mls @ 100 mls/hr IV PER RATE [facility] Last Admin: 05/19/19 03:26 Dose: 100 mls/hr Potassium Chloride (Potassium Chloride 20 Meq/100 Ml Ivpremix*) 20 meq in 100 mls @ 50 mls/hr IV Q2H [facility] Stop: 05/19/19 11:59 Ketorolac Tromethamine (Toradol Inj*) 30 mg IV PUSH Q6H PRN PRN Reason: PAIN Morphine Sulfate (Morphine Inj (Syringe))*) 1 mg IV Q2H PRN PRN Reason: PAIN Last Admin: 05/18/19 18:17 Dose: 1 mg Pharmacy Consult (Zosyn Per Pharmacy*) 1 note FOLLOW UP .ZOSYN PER PHARMACY [facility] Vital Signs - 8 hr 05/19/19 05/19/19 03:29 07:28 Temperature 98.1 F 98.6 F Pulse Rate 89 88 Respiratory 16 17 Rate Blood Pressure 131/66 142/65 (mmHg) O2 Sat by Pulse 94 92 Oximetry Oxygen Devices in Use Now: None Appearance: sitting up, NAD Eyes: No Scleral Icterus, PERRLA Ears/Nose/Mouth/Throat: NL Teeth, Lips, Gums, Clear Oropharnyx Neck: NL Appearance and Movements; NL JVP, Trachea Midline Respiratory: Symmetrical Chest Expansion and Respiratory Effort, - - decreased on right up 1/3, dull to percussion in same distribution Cardiovascular: NL Sounds; No Murmurs; No JVD, RRR Abdominal: - - surgical incisions c/d/i, [address] w/ serosanganous fluid draining Extremities: No Edema Neurological: Alert and Oriented x 3 - Nutrition: Malnutrition Diagnosis/Plan Malnutrition Assessment by Registered Dietitian: Malnutrition Assessment Clinical Characteristics Acute,Severe Malnutrition Assessment: - severe wt loss (7.6% in past two weeks) Criteria - po intake only <50% EEE for > 5 days - pt limited to small amounts of clear liquids x 2 weeks Malnutrition Assessment: 1. IVFs, abx, electrolyte replacement Interventions 2. Cont NPO w/NGT 3. Gradual progression of po diet when NGT able to be d/c'd 4. Possible supplementation when po diet resumes Malnutrition Assessment: Goals 1. pt will tolerate post-op diet progression without adverse GI effects 2. adequate po intake to maintain stable wt, lean body mass, and hydration 3. achieve and maintain serum electrolytes levels WNL 4. achieve and maintain regulated bowel pattern without c/o constipation (or diarrhea) Result Diagrams: 05/19/19 06:32 05/19/19 06:32 Microbiology and Other Data: Microbiology 05/15/19 06:15 Urine Culture - Final Urine No Growth (<1,000 CFU/mL) Assess/Plan/Problems-Billing Assessment: 59 yo M p/w abd pain found with perforated duodenal ulcer s/p ex- lap with Flako patch, pyloric exclusion, umbilical hernia repair, and Biliroth II gastrojejunostomy with Dr. Downey. Hospital medicine has been consulted for postoperative tachycardia. - Patient Problems (1) Abnormal serum thyroxine (T4) level Comment: -euthyroid hyperthyroidism: TSH wnl with minimally elevated free T4 -needs follow up with PCP 6 weeks after discharge (2) Hypoxia Comment: -resolved. Now on RA -PE unlikely after CTA -suspect pleural effusions and atelectasis were contributing now improved -c/w flutter valve, incentive spirometry and ambulation (3) Perforated duodenal ulcer Comment: -S/p Herve on 05/15/19 -zosyn -TASSEL MAKER changed to PRN IV morphine -mgmt per gen surg team (4) Pleural effusion Comment: -moderate right sided and small left sided pleural effusions seen on CTA -no indication for thora -continue incentive spirometry and flutter valve; encourage ambulation (5) Tachycardia Comment: -Resolved -Metoprolol stopped 05/18 -RBBB not new -suspect in setting of above surgery, pain, pleural effusions/atelectasis, volume depletion (6) DVT prophylaxis Comment: -heparin subQ Status and Disposition: disposition per primary team, general surgery Hospitalists team with sign off Please page with further questions [phone]
[2019-05-19] MEDS: KCL 20 MEQ/100 ML IVPREMIX* 20 MEQ/100 ML BAG IV SCH ×4 (08:16→20:14)
[2019-05-19] MEDS ORDERED: NS 0.9% 100 ML* 100 ML ONE (14:05)
--- NOTE | 2019-05-19 16:33 | PN ---
Progress Note - Progress Note Date of Service: 05/19/19 SOAP: Subjective: Pt seen and examined. Pt feeling well. Positive flatus and BM No SOB, less abdo pain Objective: [ Temp Pulse Resp BP Pulse Ox 98.5 F 89 16 143/72 94 05/19/19 11:34 05/19/19 11:34 05/19/19 11:34 05/19/19 11:34 05/19/19 11:34 Intake & Output 05/19/19 05/19/19 05/19/19 06:59 14:59 22:59 Intake Total 2073 247 Output Total 425 Balance 2073 2051 a adn o x3, nad abdo: soft/ ND/ incisional tenderness BENNIE serous x2- L side removed ext wnl labs noted. low K Assessment: POD 4 ex lap for perforated DU hypokalemic Plan: replete lytes IVF advance diet pain control SACMA to cover me after am 6 until Friday
[2019-05-19] MEDS ORDERED: D5W 1/2 NS KCl 20 Meq 1000 ML* 1,000 ML IV SCH (16:34)
[2019-05-19] MEDS ORDERED: Potassium Phosphate IV* 15 MMOLE in NS 0.9% 250 ML* 250 ML IVPB ONE (16:36)
[2019-05-19] MEDS ORDERED: Potassium & Sodium Phos 250MG* = 1 PACKET PO ONE (17:00)
[2019-05-20] MEDS: Pantoprazole* 80 mg IN NS 80 MG/250 ML BAG IV SCH ×2 (04:46→15:51)
[2019-05-20 05:40] LABS: BUN/Creatinine Ratio 5.5 (8-20); Calcium 7.8 mg/dL (8.6-10.3); EGFR African American 185.1 (>60); Magnesium 1.6 mg/dL (1.9-2.7); Phosphorus 1.8 mg/dL (2.5-5.0); Potassium 3.1 mmol/L (3.5-5.0)
[2019-05-20] MEDS: Piperacillin/Tazobactam VIAL*) 3.375 GM in NS 0.9% 100 ML* 100 ML IVPB SCH (05:55)
[2019-05-20] MEDS: Heparin VIAL(*) 5000 UNITS/ML VIAL (FIVE THOUSAND) SUBCUT SCH ×2 (06:03→13:57)
--- NOTE | 2019-05-20 09:38 | OP ---
CC: Primary care doctor; Dr. Goss * DATE OF OPERATION: 05/15/19 - ROOM #353 DATE OF : 62. SURGEON: Neville Downey MD. LAND DEVELOPMENT PROJECT MANAGER: Dr. Tubbs. ANESTHESIOLOGIST: Dr. Blair and Dr. Gipson. ANESTHESIA: General. PRE-OP DIAGNOSES: Acute abdomen. POST-OP DIAGNOSES: Perforated duodenal ulcer and umbilical hernia. OPERATIVE PROCEDURE: 1. Diagnostic laparoscopy. 2. Exploratory laparotomy. 3. Flako Plication of duodenal ulcer. 4. Pyloric exclusion. 5. Billroth II gastrojejunostomy. 6. Primary repair of umbilical hernia. ESTIMATED BLOOD LOSS: Less than 100 cc. IV FLUIDS: 3600 cc of crystalloid fluid given. URINE OUTPUT: 250 cc. SPECIMEN: None. DRAINS: Two #10 BENNIE drains, one at the Flako patch and one at the gastrojejunostomy. DESCRIPTION OF PROCEDURE: The patient was taken to the operating room, placed on the operating table in the supine position. Preoperative antibiotics were given. Sequential devices were placed on bilateral lower extremities and general anesthesia was induced. The patient's abdomen was prepped and draped in standard surgical fashion. A time-out was performed. Folds of the umbilicus were elevated anteriorly and a Veress needle was inserted into the abdominal cavity, which was then allowed to insufflate to a pressure of 15 mmHg. The patient tolerated the insufflation well. A right upper quadrant incision was then made and a 12 mm Optiview trocar inserted. Laparoscope was inserted through this and no evidence of injury from the trocar insertion. A Veress needle was then removed and replaced with a 5 mm trocar at the umbilical site. This was through an umbilical hernia. Review of the abdomen showed significant amount of murky fluid. We then placed an additional 5 mm trocar in the right upper quadrant and then carried out suctioning the significant amount of fluid in the abdomen. We suctioned over the liver, over the spleen. The disease appeared to be at the area of the distal stomach and duodenum. There was inflammation around the liver and just under the liver edge as well. The anterior aspect of the stomach appeared intact. Additional fluid was then removed from the pelvis and in all approximately 2L was removed of this murky fluid before we turned our attention to the upper GI tract. We had looked at the lower GI tract. There did not appear to be any feculent material or any inflammation around the sigmoid colon. Review of the anterior aspect of the stomach showed that it was normal contour and without lesion. The pylorus was identified and just distal to this, the duodenum was adhered to the inferior edge of the liver. I placed an additional 5 mm trocar in the left upper quadrant and this allowed us to retract the segment of the liver anteriorly and with additional blunt dissection, we were able to clear off more of the duodenum. I could not appreciate an opening at this point, but we were clearly in the area of the disease. The transverse colon was retracted inferiorly and the peritoneum overlying the transverse mesentery was taken with sharp dissection and some cautery to try to expose more of the first portion of the duodenum. This duodenum was significantly adhered to the inferior edge of the liver and we were able to pull the gallbladder up and off of this, but could not fully appreciate an ulcer at this point, and the decision was made to convert this to a laparotomy. Upper midline incision was made. This was deepened down through the layers of the abdominal wall and then entry into the abdominal cavity was made. We took our incision right up to the xiphoid and Bipin retractor was inserted, but then with retraction on the stomach, the hole in the duodenum came into view. This was the superior aspect of the first portion of the duodenum and the hole appeared to be approximately 2 cm with necrotic edges. I could not fully appreciate the posterior aspect of this ulcer, as it went towards the retroperitoneum. The decision was made to do a Flako patch over this site. No biopsies were taken and then we placed 2-0 silk sutures and used 3 in all and closed the hole at the most superior aspect and brought the tongue of omentum that we used LigaSure to mobilize and brought it up into this area over the first portion of the duodenum extending towards the Salomon's pouch. The suture that had been placed was then tied snugly over the opening itself. With the Flako patch performed, I still felt that we did not fully appreciate the full circumference of the large hole and decided to perform a pyloric exclusion. The decision was made to perform a Billroth II gastrojejunostomy. Prior to doing this, we dissected around the distal stomach and placed a TA-90 across the antrum just before the pylorus and fired the stapler. No tissue was cut and we then converted our attention to the anterior aspect of the stomach, which we placed stay sutures to the jejunum that we had counted off on ligament of Treitz. This was approximately 40 cm, and then created the gastrojejunostomy with a 60 mm blue-loaded GI stapling device and reapproximated the common defect with the TA-60. Two #10 BENNIE drains were brought in through the previous laparoscopy sites placed. The right-sided one was paced at the the Flako patch and the left- sided one was placed at the gastrojejunostomy. NG-tube was assured of its position just above the gastrojejunostomy and we then turned our attention to the umbilicus. We had known there was an umbilical hernia at this site. This was closed primarily from inside with a 0-Vicryl stitch. We then reapproximated the abdomen with running #1 loop PDS suture and irrigated the wound and reapproximated all incisions with skin queta. The patient tolerated the procedure well, was woken up in the OR and transferred to the PACU in stable condition. [id number]/[facility] #: [id number] ANNE
[2019-05-20] MEDS ORDERED: Magnesium Sulfate 2 GM IV* 2 GM/50 ML BAG IVPB ONE (10:46)
--- NOTE | 2019-05-20 10:57 | PN ---
Progress Note - Progress Note Date of Service: 05/20/19 Note: S: POD #5. No sig pain. Paul full liqs. Passing flatus and stool. O: Vital Signs - 8 hr 05/20/19 05/20/19 05/20/19 03:44 07:54 09:00 Temperature 98.1 F 98.1 F Pulse Rate 90 87 Respiratory 16 19 16 Rate Blood Pressure 126/57 135/70 (mmHg) O2 Sat by Pulse 95 97 Oximetry Intake and Output Last 24 Hours 05/18/19 05/19/19 05/20/19 05/21/19 06:59 06:59 06:59 06:59 Intake Total 2423 3885 5100 Output Total 4959 158 2788 40 Balance 728 3020 3805 -40 Intake: IV Fluids 1443 2810 3780 D5W 1/2 NS 20 meq KCL 1248 2344 LR 1022 NS 1053 56 91 magnesium sulfate 216 potassium 20meq 200 protonix 280 383 624 zosyn 110 101 305 IVPB 950 475 200 KCL in Sterile Water 200 magnesium sulfate 100 potassium 20meq 100 protonix 750 270 zosyn 205 Oral 30 600 1120 Output: BENNIE #1 75 30 115 40 BENNIE #2 20 35 30 Urine 0522 690 0475 Baez 400 Other: Estimated Void Medium Medium Date of Last Bowel 05/19/19 Movement # Bowel Movements 1 0 Estimated Stool Amount Medium Large # Voids 1 1 Gen: appears comfortable Heart: reg; sl tachy c/w prev Lungs: clear on L; coarse rhonchi on R (c/w prev) Abd: incisions look fine; no infection; queta intact; BENNIE: light serosang; soft ; no sig tenderness Labs: Laboratory Tests 05/20/19 05:16 Potassium 3.1 L Calcium 7.8 L Phosphorus 1.8 L Magnesium 1.6 L A: s/p laparotomy, kaitlynn patch of perf'd duodenal ulcer, gastrojejunostomy; cont to improve P: will adv to soft diet; replete KCl, Mg, PO4 Home later today w/ BENNIE; office f/u 05/24; discussed w/ Drs. Tubbs and Nasreen
[2019-05-20] MEDS ORDERED: Potassium & Sodium Phos 250MG* = 1 PACKET PO ONE (11:00)
[2019-05-20] MEDS: KCL 20 MEQ/100 ML IVPREMIX* 20 MEQ/100 ML BAG IV SCH ×2 (12:58→15:33)
[2019-05-20 15:52] VITALS: BP 147/68
--- NOTE | 2019-05-20 16:11 | DS ---
CC: Dr. Davidson Contreras at [facility].* DISCHARGE SUMMARY: DATE OF ADMISSION: 05/15/19 DATE OF DISCHARGE: 05/20/19 ATTENDING SURGEON: Dr. Neville Downey * (ALEM Ma, dictating) HOSPITAL COURSE: Please refer to admission history and physical and operative note for details. The patient presented to the ED on 05/14/19 with abdominal pain and CT scan showing indication of at least duodenitis and possible perforation. He was taken to the operating room by Dr. Downey on 05/15/19, at which time he underwent diagnostic laparoscopy, exploratory laparotomy, Flako plication of perforated duodenal ulcer, pyloric exclusion, a Billroth II gastrojejunostomy and a primary repair of umbilical hernia. NG tube was maintained initially. The patient did have some difficulty with shortness of breath on postoperative day #1 and a CTA was obtained, which did not show evidence of PE. He was followed in consultation by the hospitalist team. An upper GI was obtained on 05/18/19, which showed no evidence of leak. The patient was begun on clear liquids and advanced over the past 2 days to a full liquid diet this morning and plan for soft diet at noon. Thus far, he is tolerating diet well. He has been having normal bowel function. His pain is well controlled. He was covered perioperatively with antibiotics and his Zosyn will be discontinued this morning. He has required some repletion of magnesium , potassium chloride and phosphorus. These should continue to normalize as he is advancing in diet. He will be discharged on omeprazole 40 mg once daily x8 weeks. One of his BENNIE drains was removed yesterday afternoon. He will go home with the remaining BENNIE drain, but has an appointment in our office with Dr. Downey on 05/24/19 with likely removal of the drain as well as queta at that time. The patient's pain is controlled at the present time with Tylenol only. He did have an elevated T4 on 05/16/19 with a normal TSH at that time. Follow up with his primary care provider in 6 weeks and that recommendation was made. The patient was discharged to home in good condition. ALEM [place] [id number]/[facility] #: [id number] ANNE
[2019-05-20 19:48] LABS: Stool Helicobacter pylori Ag Negative (Negative)
== END 2019-05-20 17:45 | disposition home or self-care (01) | DRG 220 ==
LOC: ED 20:28 → OR 05-15 07:29 → SSU 05-15 11:04
PROVIDERS: ADMIT Surgery; ATTEND Surgery
PROC: 0DJ64ZZ Inspection of Stomach, Percutaneous Endoscopic Approach (ICD-10-PCS; 2019-05-15)
PROC: 0DB60ZZ Excision of Stomach, Open Approach (ICD-10-PCS; 2019-05-15)
PROC: 0D160ZA Bypass Stomach to Jejunum, Open Approach (ICD-10-PCS; 2019-05-15)
PROC: 0WQF0ZZ Repair Abdominal Wall, Open Approach (ICD-10-PCS; 2019-05-15)
PROC: 0DU907Z Supplement Duodenum with Autologous Tissue Substitute, Open Approach (ICD-10-PCS; principal; 2019-05-15 06:25)
DX: K26.5 Chronic or unspecified duodenal ulcer with perforation (principal); J90 Pleural effusion, not elsewhere classified; Z96.651 Presence of right artificial knee joint; M17.12 Unilateral primary osteoarthritis, left knee; E87.6 Hypokalemia; R00.0 Tachycardia, unspecified; R09.02 Hypoxemia; E05.90 Thyrotoxicosis, unspecified without thyrotoxic crisis or storm; K42.9 Umbilical hernia without obstruction or gangrene; M47.9 Spondylosis, unspecified; M43.17 Spondylolisthesis, lumbosacral region; Z82.5 Family history of asthma and other chronic lower respiratory diseases; Z81.2 Family history of tobacco abuse and dependence; Z84.1 Family history of disorders of kidney and ureter
CPT/HCPCS: 36415; 71045; 71275; 74177; 74246; 80048; 80053; 80076; 81003; 81015; 82150; 82550; 83605; 83690; 83735; 83880; 84100; 84439; 84442; 84443; 84484; 85025; 85379; 85610; 85730; 86140; 87086; 87338; 93005; 99284; C1776; J0330; J0690; J1170; J1644; J1885; J2250; J2270; J2405; J2543; J2704; J3010; J3475; J3480; J3490; Q9967

== ENCOUNTER 2019-05-22 08:42 | Inpatient (IN) | payer BC ==
--- NOTE | 2019-05-22 09:10 | ED ---
HPI Febrile Illness - HPI Summary HPI Summary: This patient is a 59 year old M presenting to ED with a chief complaint of intermittent fever highest at 101 F since 05/20/19 after being discharged from here following an ulcer repair done on 05/15/19. The patient rates the pain 2/10 in severity. Symptoms aggravated by nothing. Symptoms alleviated by nothing. Patient reports SOB. Patient denies CP, abdominal pain. No PMHx of asthma, COPD. - History of Current Complaint Chief Complaint: EDAbdPain Time Seen by Provider: 05/22/19 08:49 Hx Obtained From: Patient Onset/Duration: Started Days Ago - 05/20/19, Still Present Timing: Intermittent, Lasting Days Temperature: 101 F Initial Severity: Mild Current Severity: Mild Pain Intensity: 2 Pain Scale Used: 0-10 Numeric Aggravating Factors: Nothing Alleviating Factors: OTC Medicine - Tylenol Associated Signs and Symptoms: Negative - CP, abdominal pain, SOB - Additional Pertinent History Primary Care Physician: TADEO - Allergy/Home Medications Allergies/Adverse Reactions: Allergies Allergy/AdvReac Type Severity Reaction Status Date / Time No Known Allergies Allergy Verified 05/15/19 04:26 PMH/Surg Hx/FS Hx/Imm Hx Previously Healthy: No Endocrine/Hematology History: Denies: Hx Diabetes Cardiovascular History: Denies: Hx Hypertension Respiratory History: Denies: Hx Asthma, Hx Chronic Obstructive Pulmonary Disease (COPD) GI History: Reports: Hx Ulcer History: Denies: Hx Renal Disease Musculoskeletal History: Reports: Hx Arthritis - osteoarthritis, bone spurs in left knees Sensory History: Reports: Hx Contacts or Glasses - glasses Denies: Hx Hearing Aid Opthamlomology History: Reports: Hx Contacts or Glasses - glasses - Cancer History Hx Chemotherapy: No - Surgical History Surgery Procedure, Year, and Place: 01/2019 right total knee replacement. 2018 ulcer repair Hx Anesthesia Reactions: No Infectious Disease History: No Infectious Disease History: Denies: Traveled Outside the [place] in Last 30 Days - Family History Known Family History: Positive: Renal Disease, Other - Asthma - Social History Alcohol Use: None Alcohol Amount: socially Hx Substance Use: No Substance Use Type: Reports: None Hx Tobacco Use: No Smoking Status (MU): Never Smoked Tobacco Review of Systems Positive: Fever Negative: Chest Pain Positive: Shortness Of Breath Negative: Abdominal Pain All Other Systems Reviewed And Are Negative: Yes Physical Exam - Summary Physical Exam Summary: Appearance: Well appearing, no pain distress Skin: warm, dry, reflects adequate perfusion Head/face: normal Eyes: EOMI, PRESLEY ENT: normal Neck: supple, non-tender Respiratory: rhonchi bilaterally Cardiovascular: RRR, pulses symmetrical Abdomen: scar on right mid abdomen with queta around umbilicus, BENNIE drain Musculoskeletal: normal, strength/ROM intact Neuro: normal, sensory motor intact, A&Ox3 Triage Information Reviewed: Yes Vital Signs On Initial Exam: Initial Vitals Temp Pulse Resp BP Pulse Ox 98.4 F 102 18 147/81 96 05/22/19 08:43 05/22/19 08:43 05/22/19 08:43 05/22/19 08:43 05/22/19 08:43 Vital Signs Reviewed: Yes Diagnostics - Vital Signs Vital Signs Temp Pulse Resp BP Pulse Ox 05/22/19 09:00 94 96 05/22/19 08:55 95 96 05/22/19 08:54 95 148/86 96 05/22/19 08:43 98.4 F 102 18 147/81 96 - Laboratory Result Diagrams: 05/22/19 09:25 05/22/19 09:25 Lab Statement: Any lab studies that have been ordered have been reviewed, and results considered in the medical decision making process. - CT A/P CT Interpretation Completed By: Radiologist Summary of CT Findings: Postoperative changes are noted. Moderate amount of paranephric fluid which is not organized is noted. There may be some perinephric fluid is noted. No hydronephrosis is noted. Some retroperitoneal fluid is noted. Postoperative changes with small foci of mesenteric air in the region of the drainage catheter is in place. Patient has had a gastrojejunostomy. Dr. Hernandez has reviewed this radiology report. Re-Evaluation - Re-Evaluation First Eval Re-Evaluation Time: 13:30 Comment: Discussed results with patient. Patient will be admitted to [facility] with dx of sepsis. Patient understands and agrees with this plan. Course/Dx - Course Course Of Treatment: This patient is a 59 year old M presenting to ED with a chief complaint of intermittent fever highest at 101 F since 05/20/19 after being discharged from here following an ulcer repair done on 05/15/19. In the ED course, patient received fluids. Blood work obtained. CT A/P revealed: Postoperative changes are noted. Moderate amount of paranephric fluid which is not organized is noted. There may be some perinephric fluid is noted. No hydronephrosis is noted. Some retroperitoneal fluid is noted. Postoperative changes with small foci of mesenteric air in the region of the drainage catheter is in place. Patient has had a gastrojejunostomy. Discussed patient case with Dr. Begum who accepted the patient for admission to [facility]. Therefore, the patient will be admitted with dx of sepsis status post perforated duodenum and laparotomy. Patient understands and agrees with this plan. - Febrile Illness Differential Diagnoses: Abscess, Other: - sepsis/laparotomy - Diagnoses Provider Diagnoses: Sepsis, S/P laparotomy - Provider Notifications Discussed Care Of Patient With: Jhonny Begum Time Discussed With Above Provider: 13:11 Instructed by Provider To: Other - Discussed patient case with Dr. Begum, surgeon, who stated that he will look at the patient's films. At 1328, discussed case with Dr. Begum who accepted the patient for admission to [facility]. Discharge - Sign-Out/Discharge Documenting (check all that apply): Patient Departure - Admit Patient Received Moderate/Deep Sedation with Procedure: No - Discharge Plan Condition: Fair Disposition: ADMITTED TO [facility] Referrals: Davidson Contreras MD [Primary Care Provider] - - Billing Disposition and Condition Condition: FAIR Disposition: Admitted to [facility] - Attestation Statements Document Initiated by Bijal: Yes Documenting Scribe: David Humphreys Provider For Whom Bijal is Documenting (Include Credential): Alvino Hernandez MD Scribe Attestation: IDavid, scribed for Alvino Hernandez MD on 05/22/19 at 1501. Scribe Documentation Reviewed: Yes Provider Attestation: The documentation as recorded by the David capellan accurately reflects the service I personally performed and the decisions made by me, Alvino Hernandez MD Status of Scribe Document: Viewed
[2019-05-22] MEDS ORDERED: NS 0.9% 1000 ML** 1,000 ML IV SCH ×2 (09:15→13:45)
[2019-05-22 09:36] LABS: Hematocrit 32 % (42-52); Hemoglobin 11.1 g/dL (14.0-18.0); Mean Corpuscular HGB Conc 35 g/dL (31-36); Mean Corpuscular Hemoglobin 30 pg (27-31); Mean Corpuscular Volume 87 fL (80-94); Mean Platelet Volume 6.8 fL (7.4-10.4); Platelet Count 270 10^3/uL (150-450); Red Blood Count 3.71 10^6 /uL (4.18-5.48); Red Cell Distribution Width 14 % (10-15)
[2019-05-22 09:44] LABS: Activated Partial Thrombo Time 35.9 seconds (26.0-38.0); INR 1.52 (0.82-1.09)
[2019-05-22 09:54] LABS: ALT 21 U/L (7-52); AST 13 U/L (13-39); Albumin 2.7 g/dL (3.2-5.2); Albumin/Globulin Ratio 0.9 (1-3); Alkaline Phosphatase 180 U/L (34-104); Anion Gap 8 mmol/L (2-11); BUN/Creatinine Ratio 12.2 (8-20); Blood Urea Nitrogen 5 mg/dL (6-24); CO2 Carbon Dioxide 25 mmol/L (22-32); Calcium 8.1 mg/dL (8.6-10.3); Chloride 101 mmol/L (101-111); EGFR African American 259.8 (>60); EGFR Non-African American 214.7 (>60); Globulin 3.1 g/dL (2-4); Glucose 125 mg/dL (70-100); Potassium 3.2 mmol/L (3.5-5.0); Sodium 134 mmol/L (135-145); Total Protein 5.8 g/dL (6.4-8.9)
[2019-05-22 10:13] LABS: ABS Eosinophils 0.1 10^3/ul (0-0.6); ABS Lymphocytes 0.5 10^3/ul (1.0-4.8); ABS Monocytes 0.8 10^3/ul (0-0.8); ABS Neutrophils 10.5 10^3/ul (1.5-7.7); Eosinophil % 0.6 %; Lymphocyte % 4.6 %
[2019-05-22] MEDS ORDERED: Iohexol 300* (CONTRAST) 10 ML SDV IV ONE (11:29)
[2019-05-22] MEDS ORDERED: ED Piperacillin/Tazobac 3.375 3.375 GM/100 ML PREMIX.SET IVPB ONE (13:33)
[2019-05-22] MEDS ORDERED: TAZOBAC ADVAN IVPB ONE ×2 (14:00)
[2019-05-22] MEDS ORDERED: PIPERACILLIN IVPB ONE ×2 (14:00)
[2019-05-22] MEDS ORDERED: NS 0.9% IVPB ONE ×2 (14:00)
[2019-05-22] MEDS ORDERED: Acetaminophen TAB* 325 MG PO PRN (16:42)
--- NOTE | 2019-05-22 17:02 | HP ---
H&P (Free Text) History and Physical: UPDATE TO H&P CC: fever HPI: see prior H&P. 59 yo M 1 week s/p exlap/omental patch duodenal ulcer/ duodenal exclusion with gastrojej by Dr. Downey on 05/15. He progressed well and was d/c'd home on 05/20. Patient states that shortly after arriving home he began to have fevers. Also the color of the drain changed from pink to greenish. He has been tolerating po and voiding a lot. Denies significant abdominal pain. Only using Tylenol prn. Bowels functioning. PM/S/FH: see prior H&P. Meds reviewed. NKDA PE: Vital Signs Temp 99.5 F 05/22/19 16:17 Pulse 92 05/22/19 16:17 Resp 16 05/22/19 16:17 BP 145/83 05/22/19 16:17 Pulse Ox 94 05/22/19 16:17 Gen: appears in mild discomfort Lungs: CTA B Heart: reg Abd: incis c/d/i no erythema; BENNIE with bile tinged o/p; ND; NT. Ext: warm; no c/c/e; no CT. Intake & Output 05/21/19 05/22/19 05/22/19 18:59 06:59 18:59 Output Total 50 Balance -50 Weight 175 lb Output: BENNIE #1 50 Laboratory Results - last 24 hr 05/22/19 05/22/19 05/22/19 09:25 09:25 09:25 WBC 12.0 H RBC 3.71 L Hgb 11.1 L Hct 32 L MCV 87 MCH 30 MCHC 35 RDW 14 Plt Count 270 MPV 6.8 L Neut % (Auto) 87.8 Lymph % (Auto) 4.6 [place] % (Auto) 6.9 Eos % (Auto) 0.6 Baso % (Auto) 0.1 Absolute Neuts (auto) 10.5 H Absolute Lymphs (auto) 0.5 L Absolute Monos (auto) 0.8 Absolute Eos (auto) 0.1 Absolute Basos (auto) 0.0 Absolute Nucleated RBC 0.0 Nucleated RBC % 0.0 INR (Anticoag Therapy) 1.52 H APTT 35.9 Sodium 134 L Potassium 3.2 L Chloride 101 Carbon Dioxide 25 Anion Gap 8 BUN 5 L Creatinine 0.41 L Est GFR ( Amer) 259.8 Est GFR (Non-Af Amer) 214.7 BUN/Creatinine Ratio 12.2 Glucose 125 H Lactic Acid Calcium 8.1 L Total Bilirubin 0.70 AST 13 ALT 21 Alkaline Phosphatase 180 H C-Reactive Protein 164.30 H Total Protein 5.8 L Albumin 2.7 L Globulin 3.1 Albumin/Globulin Ratio 0.9 L Lipase < 10 L 05/22/19 09:25 WBC RBC Hgb Hct MCV MCH MCHC RDW Plt Count MPV Neut % (Auto) Lymph % (Auto) [place] % (Auto) Eos % (Auto) Baso % (Auto) Absolute Neuts (auto) Absolute Lymphs (auto) Absolute Monos (auto) Absolute Eos (auto) Absolute Basos (auto) Absolute Nucleated RBC Nucleated RBC % INR (Anticoag Therapy) APTT Sodium Potassium Chloride Carbon Dioxide Anion Gap BUN Creatinine Est GFR ( Amer) Est GFR (Non-Af Amer) BUN/Creatinine Ratio Glucose Lactic Acid 1.4 Calcium Total Bilirubin AST ALT Alkaline Phosphatase C-Reactive Protein Total Protein Albumin Globulin Albumin/Globulin Ratio Lipase CT images reviewed. No intraabdominal collection. RP edema/perinephric fluid. No extravasation of contrast. Impression: Post-op fever 1 week s/p exlap/omental patch duodenal ulcer/ duodenal exclusion with gastrojejunostomy. He has leukocytosis, elevated CRP, and change in drainage concerning for possible intraabdominal infection. Plan: Admission for IV antibiotics and observation. Repeat labs in am. Blood cultures if spikes temp. Zosyn. PPI. DVT prophylaxis.
[2019-05-22] MEDS: Heparin VIAL(*) 5000 UNITS/ML VIAL (FIVE THOUSAND) SUBCUT SCH (21:50)
[2019-05-23 05:14] LABS: ABS Basophils 0.1 10^3/ul (0-0.2); ABS Eosinophils 0.2 10^3/ul (0-0.6); ABS Lymphocytes 0.9 10^3/ul (1.0-4.8); ABS Monocytes 0.9 10^3/ul (0-0.8); ABS Neutrophils 11.3 10^3/ul (1.5-7.7); Eosinophil % 1.7 %; Hematocrit 30 % (42-52); Hemoglobin 10.4 g/dL (14.0-18.0); Lymphocyte % 6.7 %; Mean Corpuscular HGB Conc 34 g/dL (31-36); Mean Corpuscular Hemoglobin 30 pg (27-31); Mean Corpuscular Volume 87 fL (80-94); Mean Platelet Volume 6.9 fL (7.4-10.4); Platelet Count 258 10^3/uL (150-450); Red Cell Distribution Width 14 % (10-15); White Blood Count 13.3 10^3/uL (3.5-10.8)
[2019-05-23 05:22] LABS: Activated Partial Thrombo Time 36.2 seconds (26.0-38.0); INR 1.74 (0.82-1.09)
[2019-05-23] MEDS: Heparin VIAL(*) 5000 UNITS/ML VIAL (FIVE THOUSAND) SUBCUT SCH ×3 (05:38→22:09)
[2019-05-23 05:47] LABS: C Reactive Protein 148.32 mg/L (<8.01); Calcium 7.9 mg/dL (8.6-10.3); EGFR African American 206.7 (>60); EGFR Non-African American 170.8 (>60); Potassium 3.3 mmol/L (3.5-5.0)
[2019-05-23] MEDS ORDERED: Potassium Chlor TAB* 20 MEQ TAB.ER PO ONE ×2 (06:51→16:00)
[2019-05-23] MEDS ORDERED: D5W 1/2 NS KCl 20 Meq 1000 ML* 1,000 ML IV SCH (07:00)
[2019-05-23] MEDS: Pantoprazole IV* 40 MG IV SCH (08:55)
--- NOTE | 2019-05-23 09:02 | PN ---
Progress Note - Progress Note Date of Service: 05/23/19 SOAP: Subjective: Better than yesterday. C/o cough and laryngitis. Passing flatus and no abd pain. Objective: Omfe=630.9 Vital Signs Temp 97.8 F 05/23/19 08:00 Pulse 101 05/23/19 08:00 Resp 18 05/23/19 08:00 BP 118/81 05/23/19 08:00 Pulse Ox 96 05/23/19 08:00 Gen: NAD Abd: incision c/d/i; no erythema; BENNIE bile tinged; soft, NT. Skin: fine, maculopapular rash over chest, abd, upper arms. Intake & Output 05/22/19 05/23/19 05/23/19 18:59 06:59 18:59 Intake Total 300 310 479 Output Total 50 865 60 Balance 250 -555 419 Weight 175 lb Intake: IV Fluids 479 NS (0.9%) 479 Oral 300 310 Output: BENNIE #1 50 115 60 Urine 750 Laboratory Results - last 24 hr 05/22/19 05/22/19 05/22/19 09:25 09:25 09:25 WBC 12.0 H RBC 3.71 L Hgb 11.1 L Hct 32 L MCV 87 MCH 30 MCHC 35 RDW 14 Plt Count 270 MPV 6.8 L Neut % (Auto) 87.8 Lymph % (Auto) 4.6 [place] % (Auto) 6.9 Eos % (Auto) 0.6 Baso % (Auto) 0.1 Absolute Neuts (auto) 10.5 H Absolute Lymphs (auto) 0.5 L Absolute Monos (auto) 0.8 Absolute Eos (auto) 0.1 Absolute Basos (auto) 0.0 Absolute Nucleated RBC 0.0 Nucleated RBC % 0.0 INR (Anticoag Therapy) 1.52 H APTT 35.9 Sodium 134 L Potassium 3.2 L Chloride 101 Carbon Dioxide 25 Anion Gap 8 BUN 5 L Creatinine 0.41 L Est GFR ( Amer) 259.8 Est GFR (Non-Af Amer) 214.7 BUN/Creatinine Ratio 12.2 Glucose 125 H Lactic Acid Calcium 8.1 L Total Bilirubin 0.70 AST 13 ALT 21 Alkaline Phosphatase 180 H C-Reactive Protein 164.30 H Total Protein 5.8 L Albumin 2.7 L Globulin 3.1 Albumin/Globulin Ratio 0.9 L Lipase < 10 L 05/22/19 05/23/19 05/23/19 09:25 04:59 04:59 WBC 13.3 H RBC 3.50 L Hgb 10.4 L Hct 30 L MCV 87 MCH 30 MCHC 34 RDW 14 Plt Count 258 MPV 6.9 L Neut % (Auto) 84.6 Lymph % (Auto) 6.7 [place] % (Auto) 6.6 Eos % (Auto) 1.7 Baso % (Auto) 0.4 Absolute Neuts (auto) 11.3 H Absolute Lymphs (auto) 0.9 L Absolute Monos (auto) 0.9 H Absolute Eos (auto) 0.2 Absolute Basos (auto) 0.1 Absolute Nucleated RBC 0.0 Nucleated RBC % 0.0 INR (Anticoag Therapy) 1.74 H APTT 36.2 Sodium Potassium Chloride Carbon Dioxide Anion Gap BUN Creatinine Est GFR ( Amer) Est GFR (Non-Af Amer) BUN/Creatinine Ratio Glucose Lactic Acid 1.4 Calcium Total Bilirubin AST ALT Alkaline Phosphatase C-Reactive Protein Total Protein Albumin Globulin Albumin/Globulin Ratio Lipase 05/23/19 04:59 WBC RBC Hgb Hct MCV MCH MCHC RDW Plt Count MPV Neut % (Auto) Lymph % (Auto) [place] % (Auto) Eos % (Auto) Baso % (Auto) Absolute Neuts (auto) Absolute Lymphs (auto) Absolute Monos (auto) Absolute Eos (auto) Absolute Basos (auto) Absolute Nucleated RBC Nucleated RBC % INR (Anticoag Therapy) APTT Sodium 134 L Potassium 3.3 L Chloride 101 Carbon Dioxide 25 Anion Gap 8 BUN 5 L Creatinine 0.50 L Est GFR ( Amer) 206.7 Est GFR (Non-Af Amer) 170.8 BUN/Creatinine Ratio 10.0 Glucose 126 H Lactic Acid Calcium 7.9 L Total Bilirubin AST ALT Alkaline Phosphatase C-Reactive Protein 148.32 H Total Protein Albumin Globulin Albumin/Globulin Ratio Lipase Assessment: Post-op fever 1 week s/p exlap/omental patch duodenal ulcer/duodenal exclusion with gastrojejunostomy. Clinically appears to have controlled leak from repair and unclear that he is ill from this. New rash. Given cough and laryngitis, wonder it there is other infectious source for fever/leukocytosis. Plan: Hospital medicine consult (called Dr. Hansen). Cont Zosyn for now. Replete K+. Will adv diet.
[2019-05-23] MEDS ORDERED: Melatonin 3 MG TAB PO PRN (13:04)
[2019-05-23] MEDS ORDERED: diPHENhydraMINE PO* 25 MG PO PRN (13:04)
[2019-05-23 13:20] LABS: Rapid Strep Molecular Negative (Negative)
[2019-05-23 15:56] LABS: Urine Appearance Clear; Urine Bilirubin Negative (Negative); Urine Blood Negative (Negative); Urine Color Yellow; Urine Glucose Negative (Negative); Urine Ketones Negative (Negative); Urine Nitrite Negative (Negative); Urine Protein Negative (Negative); Urine Specific Gravity 1.016 (1.010-1.030); Urine Urobilinogen Negative (Negative)
[2019-05-23] MEDS ORDERED: NS 0.9% 1000 ML** 1,000 ML IV ONE (19:48)
[2019-05-23] MEDS: Cefepime 2 GM in Dextrose(*) 2 GM/50 ML BAG IV SCH (21:07)
[2019-05-23] MEDS: NS 0.9% 1000 ML** 1,000 ML IV SCH (21:08)
[2019-05-23] MEDS: metroNIDAZOLE IV 500 MG/100ML* 500 MG/100 ML BAG IVPB SCH (22:09)
--- NOTE | 2019-05-24 01:31 | CONS ---
[facility] CONSULTATION REPORT: DATE OF CONSULT: 05/23/19 PROVIDER: Ade Argueta NP ATTENDING PHYSICIAN: Dr. Begum. CONSULTING PHYSICIAN: William Hansen MD (dictated by Ade Argueta NP) REASON FOR CONSULT: Fever. HISTORY OF PRESENT ILLNESS: Mr. Cardenas is a 59-year-old male who initially had a knee replacement back on 01/27/19 and was doing well at home. He had a knee manipulation done on 04/14/19. At that time, he was placed on naproxen. Shortly about a week after that, the patient started with vomiting and abdominal pain. Had subsequent visits to the emergency room due to the vomiting and abdominal pain and was placed on the antinausea medications. On , the patient again presented to the emergency room again with severe abdominal pain and vomiting. He was found to have a perforated duodenal ulcer and underwent surgery with Dr. Downey with jejunostomy and has a BENNIE drain. He was discharged on 05/20/19. Prior to that, he had a GI series done on 05/18/19 , which did not show any leak. The patient reports that he returned home and developed a fever of 101 on 05/21/19. The reports that the drainage from his BENNIE drain changed from pale pink to green and brownish color and by the evening of 05/21/19 had a fever of 101. The patient does report that he has had a cough since 05/15/19, but no change in the cough, no worsening and no increase in sputum production. The patient on 05/21/19 did develop some laryngitis, but no sore throat. So, he represented to the emergency room on with a fever and at that time was admitted by Surgery. Due to his continued fever and and rash and concern for other source of infection, we were asked to see and evaluate the patient in consultation. PAST MEDICAL HISTORY: Significant for arthritis; perforated duodenal ulcer, status post repair on 05/15/19. PAST SURGICAL HISTORY: 1. Right total knee arthroplasty. 2. Jejunostomy on 05/15/19. MEDICATIONS: Home medications include: 1. Omeprazole 40 mg p.o. daily. 2. Tramadol, the patient has not taken any in 2 weeks. ALLERGIES: No known drug allergies. FAMILY HISTORY: No reported history of diabetes, coronary artery disease, or cancer within the family. Father in his 60s from COPD. SOCIAL HISTORY: The patient denies any alcohol or tobacco use. He does report that he smoked pot for approximately 30 years; stopped smoking approximately 3 months ago. He lives with his . Surrogate decision maker in the event he is unable to make his own decisions is his , Yoly. He is a full code. REVIEW OF SYSTEMS: He does report fever. He denies any chest pain or edema. He does report some swelling to bilateral feet. He does report a cough. No hemoptysis or shortness of breath. He denies any nausea, vomiting, diarrhea, or abdominal pain. The patient reports he has not vomited since he had his surgery on 05/15/19. Denies any gross hematuria or dysuria, focal weakness, or sensory loss. Denies any visual complaints, dysphagia, arthralgias, myalgias, rashes, lesions, or open sores. He denies any depression or anxiety. PHYSICAL EXAM: General: At this time, Mr. Cardenas is resting in his hospital room in his bed. He is in no acute distress. He is alert and oriented x3. Vital Signs: Temperature was 97.8, heart rate 101, respirations are 18, O2 saturation is 96%, blood pressure was 118/81. HEENT: Head is atraumatic, normocephalic. Eyes: EOMs are intact. Sclerae anicteric and not pale. Oral mucosa appeared to be moist. Neck is supple. Lungs are clear, diminished in the bases with crackles in the right base. Abdomen is soft. He does have mild tenderness near the surgical site. Vignesh are intact. Incisions are well approximated with no drainage. No surrounding erythema. He does have a BENNIE drain noted to his right upper abdomen with yellow brown drainage. No surrounding erythema noted around the drain site. Extremities: He is able to move all 4 extremities with 5/5 strength. Neurologic: He is awake , alert, oriented x3. Speech is clear. Thought process is intact. There are no gross focal deficits. Skin: He does have vignesh intact to his abdomen from healing surgical incision sites. He does have a BENNIE drain noted to his right upper abdomen. DIAGNOSTIC STUDIES/LAB DATA: WBCs are 13.3, RBCs 3.50, hemoglobin 10.4, hematocrit is 30, platelet count was 258. INR was 1.74. Sodium 134, potassium 3.3, chloride 101, carbon dioxide was 25, anion gap was 8, BUN was 5, creatinine 0.50, glucose was 126. Calcium 7.9. C-reactive protein was 148.32. Alkaline phosphatase on 05/22/19 was 180. Lipase was less than 10. Urine was within normal limits. Rapid strep was negative. He had a chest x-ray, radiologist's impression: Right pleural effusion, right basilar atelectasis, left lung field is clear, no evidence of pleural fluid, pneumonia, or pneumothorax. He had fluid culture sent from his BENNIE drain, which shows 3+ neutrophils, 4+ yeast, 2+ gram-positive cocci, negative for MRSA and MSSA was negative. Blood cultures are negative. He had a CT of the abdomen and pelvis, which showed postoperative changes, moderate amount of perinephric fluid, which is not organized. As noted, there may be some perinephric fluid noted. No hydronephrosis is noted. No retroperitoneal fluid is noted. There are postoperative changes with small foci of mesenteric area in the region of drain catheter is in place. The patient has had gastrojejunostomy. IMPRESSION AND PLAN: Mr. Cardenas is a 59-year-old male who presented to the emergency room with fever, change in color of BENNIE drainage who is admitted by Surgery for fever and questionable abdominal infection, who is admitted by Surgery for fever. Hospital Medicine was asked to consult due to rash, cough and continued fever. Our recommendations are as follows: 1. Fever. The patient did meet sepsis criteria on admission with tachycardia, elevated white count of 12.0. He was given Zosyn in the emergency room. He did have blood cultures that currently show no growth x1 day. Added BENNIE drain fluid culture that is currently pending. UA was sent today and was negative. I ordered a chest x-ray, which also does not show any signs of pneumonia. I suspect his sepsis could be related to his recent abdominal surgery and possible abdominal infection. The patient did develop a rash after receiving a dose Zosyn in the emergency room, so at this time i suspect his rash is related to the zosyn, I will change his antibiotics to Flagyl and cefepime and continue to monitor the patient. I would recommend consultation to infectious disease to help assist in further management of his antibiotics as his preliminary culture does show gram positive cocci and yeast. the patient remains tachycardic at this time I will change his fluid to Normal Saline and give a 1 liter bolus and continue at 100cc/hr. 2. Status post exploratory lap omental patch duodenal ulcer and gastrojejunostomy. Management per Surgery. 3. Hypokalemia. The patient does have hypokalemia with a potassium of 3.3. He did receive 20 mEq of potassium p.o. this morning. He does have D5 half normal saline with 20K infusing at 50 cc per hour. I will order a second dose of potassium 20 mEq p.o. and repeat a BMP in the a.m. 4. DVT prophylaxis. We will continue heparin subcu. 5. Diet. He can have a regular diet as per Surgery. 6. Code status. He is a full code. TIME SPENT: Time spent on this consultation is approximately 60 minutes, greater than half the time was spent at the bedside reviewing the events leading thus far to this hospitalization, performing physical exam, and reviewing my plan of care I have discussed this with my attending, Dr. William Hansen, he is in agreement with my plan. ADE ARGUETA, SULY [id number]/[facility] #: [id number] ANNE
[2019-05-24] MEDS: Heparin VIAL(*) 5000 UNITS/ML VIAL (FIVE THOUSAND) SUBCUT SCH ×4 (06:11→21:31)
[2019-05-24] MEDS: metroNIDAZOLE IV 500 MG/100ML* 500 MG/100 ML BAG IVPB SCH ×3 (06:11→21:26)
[2019-05-24 06:59] LABS: BUN/Creatinine Ratio 11.1 (8-20); Calcium 7.8 mg/dL (8.6-10.3); EGFR African American 233.4 (>60); EGFR Non-African American 192.9 (>60); Potassium 3.6 mmol/L (3.5-5.0)
[2019-05-24] MEDS: Cefepime 2 GM in Dextrose(*) 2 GM/50 ML BAG IV SCH ×2 (07:14→19:37)
[2019-05-24] MEDS: Pantoprazole IV* 40 MG IV SCH (07:48)
[2019-05-24] MEDS: NS 0.9% 1000 ML** 1,000 ML IV SCH ×2 (09:22→21:31)
--- NOTE | 2019-05-24 09:40 | PN ---
Subjective Date of Service: 05/24/19 Interval History: Patient is feeling improved from yesterday. Denies diaphoresis, fever/chills, abd pain, nausea, vomiting, chest pain, difficulty breathing. He has been having loose stools since his surgery in April, which is unchanged today. Objective Active Medications: Acetaminophen (Tylenol Tab*) 650 mg PO Q4H PRN PRN Reason: Pain Or Temperature >101 F Diphenhydramine HCl (Benadryl Po*) 25 mg PO Q6H PRN PRN Reason: ITCHING Last Admin: 05/24/19 00:03 Dose: 25 mg Heparin Sodium (Porcine) (Heparin Vial(*)) 5,000 units SUBCUT Q8HR [facility] Last Admin: 05/24/19 06:11 Dose: 5,000 units Cefepime HCl (Maxipime 2 Gm In Dextrose Duplex (*)) 2 gm in 50 mls @ 100 mls/ hr IV Q12H [facility] Last Admin: 05/24/19 07:14 Dose: 100 mls/hr Metronidazole/Sodium Chloride (Flagyl 500 Mg Ivpb*) 500 mg in 100 mls @ 100 mls /hr IVPB Q8H [facility] Last Admin: 05/24/19 06:11 Dose: 100 mls/hr Sodium Chloride (Ns 0.9% 1000 Ml) 1,000 mls @ 100 mls/hr IV PER RATE [facility] Last Admin: 05/24/19 09:22 Dose: 100 mls/hr Melatonin (Melatonin) 3 mg PO BEDTIME PRN PRN Reason: SLEEP Last Admin: 05/23/19 22:09 Dose: 3 mg Pantoprazole Sodium (Protonix Iv*) 40 mg IV DAILY [facility] Last Admin: 05/24/19 07:48 Dose: 40 mg Vital Signs - 8 hr 05/24/19 05/24/19 05/24/19 02:37 03:08 07:08 Temperature 99.3 F 99.5 F Pulse Rate 91 92 Respiratory 16 18 20 Rate Blood Pressure 138/68 129/70 (mmHg) O2 Sat by Pulse 95 94 Oximetry 05/24/19 07:36 Temperature Pulse Rate Respiratory 20 Rate Blood Pressure (mmHg) O2 Sat by Pulse Oximetry Oxygen Devices in Use Now: None Appearance: Middle aged white male, laying in hospital bed, appearing in NAD Eyes: No Scleral Icterus, PERRLA Ears/Nose/Mouth/Throat: Mucous Membranes Moist Neck: NL Appearance and Movements; NL JVP Respiratory: Symmetrical Chest Expansion and Respiratory Effort, - - Rhonchi in right lung base Cardiovascular: NL Sounds; No Murmurs; No JVD, RRR Abdominal: NL Sounds; No Tenderness; No Distention, - - BENNIE drain with yellow- green output; queta intact, incision sites dry Extremities: No Edema, No Clubbing, Cyanosis, - - no calf tenderness Skin: No Rash or Ulcers Neurological: Alert and Oriented x 3, NL Muscle Strength and Tone - Nutrition: Malnutrition Diagnosis/Plan Malnutrition Assessment by Registered Dietitian: Malnutrition Assessment Clinical Characteristics Acute,Severe Malnutrition Assessment: - 7.9% wt loss x 3-4 weeks Criteria - < 50% estimated energy expenditure > 5 days - Mild temporal muscle wasting Malnutrition Assessment: Pt is taking PO intake slowly (consumed 35% of B Interventions 05/23). Encouraged adequate protein intake. Pt not interested in an oral nutritional supplement at this time, however he is aware to request as desired. Will follow. Malnutrition Assessment: Goals 1. Adequate PO intake to promote repletion of lean body mass, maintain hydration, and prevent additional wt loss - Goal: > 50% of meals Result Diagrams: 05/23/19 04:59 05/24/19 06:12 Microbiology and Other Data: Microbiology 05/22/19 09:25 Aerobic Blood Culture - Preliminary Blood Venous No Growth Day 2 Anaerobic Blood Culture - Preliminary No Growth Day 2 05/22/19 09:20 Aerobic Blood Culture - Preliminary Blood Venous No Growth Day 2 Anaerobic Blood Culture - Preliminary No Growth Day 2 05/23/19 15:03 Gram Stain - Final Sputum 05/23/19 12:55 Gram Stain - Final Misc Fluid (See Comment) - Abdominal Skin and Soft Tissue MRSA/MSSA (PCR - Final Mrsa Negative S.aureus Negative Assess/Plan/Problems-Billing Assessment: 59 yo white male with PMHx osteoarthritis s/p laparotomy w Flako plication, pyloric exclusion, umbilical hernia repair, and gastrojejunostomy on 05/15/19 due to perforated duodenal ulcer and subsequently discharged home, presented to the ED on 05/23/19 due to fever and change in BENNIE drain output color. - Patient Problems (1) Fever Code(s): R50.9 - FEVER, UNSPECIFIED SNOMED Code(s): 058928446 Comment: -presents with fever in setting of recent laparotomy, possibly due to postoperative intraabdominal infection -patient was receiving zosyn during last hospital admission but had rash when administered in ED during this admission -now receiving flagyl and cefepime, will benefit from ID consult for further narrowing of antibiotic coverage -blood culture no growth to date -abd fluid culture growing staph epidermidis and elena albicans; elena is likely a contamination though warrents ID input -afebrile since 05/22/19 (2) Status post laparotomy Code(s): Z98.890 - OTHER SPECIFIED POSTPROCEDURAL STATES SNOMED Code(s): 331104538 Comment: -mgmt per general surgery team (3) Pleural effusion Code(s): J90 - PLEURAL EFFUSION, NOT ELSEWHERE CLASSIFIED SNOMED Code(s): 98525344 Comment: -pleural effusions bilaterally during recent hospitalization -CXR on 05/23/19 with right pleural effusion and atelectasis -this likely represents a slow resolution of the previous pleural effusions found postoperatively -continue incentive spirometry, ordered flutter valve -no O2 requirements and no SOB (4) Hypokalemia Code(s): E87.6 - HYPOKALEMIA SNOMED Code(s): 64679357 Comment: -resolved today (5) DVT prophylaxis Code(s): Z29.9 - ENCOUNTER FOR PROPHYLACTIC MEASURES, UNSPECIFIED SNOMED Code( s): 324253821 Comment: -heparin subQ (6) Full code status Code(s): Z78.9 - OTHER SPECIFIED HEALTH STATUS SNOMED Code(s): 977087668 Status and Disposition: per gen surg team Given that further antibiotic selection should be further directed by infectious disease, hospital medicine has no further input at this time. I will sign off for now but please feel free to reach out for any additional questions.
--- NOTE | 2019-05-24 11:25 | PN ---
Progress Note - Progress Note Date of Service: 05/24/19 SOAP: Subjective:no abd pain;passing flatus;ate solid breakfast;occasional cough, scant sputum,no dyspnea [] Objective: Vital Signs Temp 99 F 05/24/19 11:14 Pulse 99 05/24/19 11:14 Resp 22 05/24/19 11:14 BP 126/72 05/24/19 11:14 Pulse Ox 96 05/24/19 11:14 Intake & Output 05/23/19 05/24/19 05/24/19 18:59 06:59 18:59 Intake Total 1299 2402 1787 Output Total 210 2470 Balance 1089 -68 1787 Intake: IV Fluids 479 1547 797 D5W 1/2 NS 20 meq KCL 548 NS (0.9%) 479 999 797 IVPB 55 200 ABX - CEFEPIME 55 100 ABX - FLAGYL 100 Oral 820 800 790 Output: BENNIE #1 210 220 Urine 2250 Other: Estimated Void Medium # Bowel Movements 0 # Voids 8 lungs:decreased bs R base,otherwise clear bilat;heart:RRR;abd:+bs,soft, nondistended,nontender;incisions c/d/intact with queta,no erythema;BENNIE with bilious drainage;exit site c/d/intact with prolene suture;ext:nomtender,no edema [] Assessment:05/15 ex lap,kaitlynn patch,gastrojej;returned to ED 05/21 with fever and rash;stable on IV abx [] Plan:continue current abx;body fluid culture pending;Dr Downey updated and will see patient this afternoon []
--- NOTE | 2019-05-24 16:04 | PN ---
Progress Note - Progress Note Date of Service: 05/24/19 SOAP: Subjective: Patient seen and examined. Chart reviewed. Patient has no complaints at this time. Is tolerating diet. He is having bowel movements. No abdominal pain. Patient wants to go home Patient is postop day 10 from exploratory laparotomy patch and a duodenal ulcer and creation of gastrojejunostomy. Patient was discharged home and promptly spiked fever was readmitted. At that time, patient's drainage from the BENNIE was more bilious, the working diagnosis is needed duodenal ulcer site. No abdominal abscesses. Patient is tolerating by mouth intake. Objective: Temp Pulse Resp BP Pulse Ox 99 F 99 22 126/72 96 05/24/19 11:14 05/24/19 11:14 05/24/19 11:14 05/24/19 11:14 05/24/19 11:14 Intake & Output 05/24/19 05/24/19 05/24/19 06:59 14:59 22:59 Intake Total 800 2637 Output Total 2040 0 Balance -1240 2637 Alert and oriented 3, in no apparent distress Abdomen: Soft, nondistended, tender only on deep palpation of the right upper quadrant. BENNIE drain is thin greenish yellow fluid. Staple line intact without erythema. Mild macular rash on the abdomen that is red and nontender. Labs reviewed. Laboratory Last Values WBC 13.3 10^3/uL (3.5-10.8) H 05/23/19 04:59 RBC 3.50 10^6 /uL (4.18-5.48) L 05/23/19 04:59 Hgb 10.4 g/dL (14.0-18.0) L 05/23/19 04:59 Hct 30 % (42-52) L 05/23/19 04:59 MCV 87 fL (80-94) 05/23/19 04:59 MCH 30 pg (27-31) 05/23/19 04:59 MCHC 34 g/dL (31-36) 05/23/19 04:59 RDW 14 % (10-15) 05/23/19 04:59 Plt Count 258 10^3/uL (150-450) 05/23/19 04:59 MPV 6.9 fL (7.4-10.4) L 05/23/19 04:59 Neut % (Auto) 84.6 % 05/23/19 04:59 Lymph % (Auto) 6.7 % 05/23/19 04:59 [place] % (Auto) 6.6 % 05/23/19 04:59 Eos % (Auto) 1.7 % 05/23/19 04:59 Baso % (Auto) 0.4 % 05/23/19 04:59 Absolute Neuts (auto) 11.3 10^3/ul (1.5-7.7) H 05/23/19 04:59 Absolute Lymphs (auto) 0.9 10^3/ul (1.0-4.8) L 05/23/19 04:59 Absolute Monos (auto) 0.9 10^3/ul (0-0.8) H 05/23/19 04:59 Absolute Eos (auto) 0.2 10^3/ul (0-0.6) 05/23/19 04:59 Absolute Basos (auto) 0.1 10^3/ul (0-0.2) 05/23/19 04:59 Absolute Nucleated RBC 0.0 10^3/ul 05/23/19 04:59 Nucleated RBC % 0.0 05/23/19 04:59 INR (Anticoag Therapy) 1.74 (0.82-1.09) H 05/23/19 04:59 APTT 36.2 seconds (26.0-38.0) 05/23/19 04:59 Sodium 134 mmol/L (135-145) L 05/24/19 06:12 Potassium 3.6 mmol/L (3.5-5.0) 05/24/19 06:12 Chloride 103 mmol/L (101-111) 05/24/19 06:12 Carbon Dioxide 23 mmol/L (22-32) 05/24/19 06:12 Anion Gap 8 mmol/L (2-11) 05/24/19 06:12 BUN 5 mg/dL (6-24) L 05/24/19 06:12 Creatinine 0.45 mg/dL (0.67-1.17) L 05/24/19 06:12 Est GFR ( Amer) 233.4 (>60) 05/24/19 06:12 Est GFR (Non-Af Amer) 192.9 (>60) 05/24/19 06:12 BUN/Creatinine Ratio 11.1 (8-20) 05/24/19 06:12 Glucose 138 mg/dL (70-100) H 05/24/19 06:12 Lactic Acid 1.4 mmol/L (0.5-2.0) 05/22/19 09:25 Calcium 7.8 mg/dL (8.6-10.3) L 05/24/19 06:12 Total Bilirubin 0.70 mg/dL (0.2-1.0) 05/22/19 09:25 AST 13 U/L (13-39) 05/22/19 09:25 ALT 21 U/L (7-52) 05/22/19 09:25 Alkaline Phosphatase 180 U/L (34-104) H 05/22/19 09:25 C-Reactive Protein 148.32 mg/L (<8.01) H 05/23/19 04:59 Total Protein 5.8 g/dL (6.4-8.9) L 05/22/19 09:25 Albumin 2.7 g/dL (3.2-5.2) L 05/22/19 09:25 Globulin 3.1 g/dL (2-4) 05/22/19 09:25 Albumin/Globulin Ratio 0.9 (1-3) L 05/22/19 09:25 Lipase < 10 U/L (11.0-82.0) L 05/22/19 09:25 Urine Color Yellow 05/23/19 15:01 Urine Appearance Clear 05/23/19 15:01 Urine pH 8.0 (5-9) 05/23/19 15:01 Ur Specific Moran 1.016 (1.010-1.030) 05/23/19 15:01 Urine Protein Negative (Negative) 05/23/19 15:01 Urine Ketones Negative (Negative) 05/23/19 15:01 Urine Blood Negative (Negative) 05/23/19 15:01 Urine Nitrate Negative (Negative) 05/23/19 15:01 Urine Bilirubin Negative (Negative) 05/23/19 15:01 Urine Urobilinogen Negative (Negative) 05/23/19 15:01 Ur Leukocyte Esterase Negative (Negative) 05/23/19 15:01 Urine Glucose Negative (Negative) 05/23/19 15:01 Group A Strep Rapid Negative (Negative) 05/23/19 12:50 Antibiotic medications reviewed. Assessment: Status post above procedure now with likely drainage at the duodenal patch site which is not surprising given size of the ulcer. CT scan shows perinephric fluid, as well as sympathetic disease of the right chest. Fever can be secondary to pneumonia, or leak with bile drainage. However, my concern is still at the possible leak of the gastrojejunostomy. I discussed this all with patient and patient's today. Plan: Continue oral intake for now and nothing by mouth at midnight for upper GI study tomorrow. If upper GI is within normal limits without evidence of leak at the gastrojejunostomy, and BENNIE drain stays stable, we will look towards discharge home with BENNIE drainage alone plus or minus antibiotics. Labs in a.m.
[2019-05-24] MEDS ORDERED: Zolpidem TAB* 5 MG PO ONE (21:00)
[2019-05-25] MEDS: metroNIDAZOLE IV 500 MG/100ML* 500 MG/100 ML BAG IVPB SCH ×3 (05:31→22:06)
[2019-05-25] MEDS: Heparin VIAL(*) 5000 UNITS/ML VIAL (FIVE THOUSAND) SUBCUT SCH ×3 (05:33→22:09)
[2019-05-25 05:47] LABS: ABS Eosinophils 0.3 10^3/ul (0-0.6); ABS Lymphocytes 1.3 10^3/ul (1.0-4.8); ABS Monocytes 1.2 10^3/ul (0-0.8); ABS Neutrophils 12.3 10^3/ul (1.5-7.7); Eosinophil % 1.8 %; Hematocrit 30 % (42-52); Lymphocyte % 8.3 %; Mean Corpuscular HGB Conc 34 g/dL (31-36); Mean Corpuscular Hemoglobin 29 pg (27-31); Mean Corpuscular Volume 87 fL (80-94); Mean Platelet Volume 6.8 fL (7.4-10.4); Platelet Count 356 10^3/uL (150-450); Red Blood Count 3.43 10^6 /uL (4.18-5.48); Red Cell Distribution Width 14 % (10-15); White Blood Count 15.1 10^3/uL (3.5-10.8)
[2019-05-25 05:59] LABS: Albumin 2.6 g/dL (3.2-5.2); Albumin/Globulin Ratio 0.8 (1-3); BUN/Creatinine Ratio 8.8 (8-20); Calcium 8.4 mg/dL (8.6-10.3); EGFR African American 177.7 (>60); EGFR Non-African American 146.8 (>60); Globulin 3.1 g/dL (2-4); Magnesium 1.7 mg/dL (1.9-2.7); Phosphorus 3.2 mg/dL (2.5-5.0); Potassium 3.8 mmol/L (3.5-5.0); Total Bilirubin 0.7 mg/dL (0.2-1.0); Total Protein 5.7 g/dL (6.4-8.9)
[2019-05-25] MEDS: Cefepime 2 GM in Dextrose(*) 2 GM/50 ML BAG IV SCH ×2 (07:25→21:20)
[2019-05-25] MEDS: Pantoprazole IV* 40 MG IV SCH (09:37)
[2019-05-25] MEDS: NS 0.9% 1000 ML** 1,000 ML IV SCH (09:38)
[2019-05-25] MEDS ORDERED: Zolpidem TAB* 5 MG PO PRN (14:42)
[2019-05-25] MEDS ORDERED: Magnesium Sulfate 1 GM IV* 1 GM/100 ML BAG IV ONE (16:04)
--- NOTE | 2019-05-25 16:10 | PN ---
Progress Note - Progress Note Date of Service: 05/25/19 SOAP: Subjective: Patient seen and examined. Continues to be fatigued. He is out of bed but only intermittently. He is tolerating limited amount of by mouth intake. He is having bowel movements. Patient has emptied his own BENNIE drain, but states that nurse measured at afterwards. Objective: Temp Pulse Resp BP Pulse Ox 99.3 F 107 17 125/74 95 05/25/19 15:00 05/25/19 15:00 05/25/19 15:00 05/25/19 15:00 05/25/19 15:00 Intake & Output 05/25/19 05/25/19 05/25/19 06:59 14:59 22:59 Intake Total 360 960 Output Total 1915 565 Balance -1555 395 Alert and oriented 3, no apparent distress Lungs poor inspiratory effort Abdomen: Soft, distended, nontender. Skin queta intact with no erythema. Resolving rash. BENNIE drain with bilious output non-cloudy. Extremities within normal limits Labs reviewed and white count remains elevated. Assessment: Large Duodenal ulcer status post Flako plication now with bile leak likely from repair site. Gastrojejunostomy intact. Persistent elevated white blood cell count and temperature of 99F. Differential diagnosis includes pneumonia. Plan: Antibiotics Pulmonary toilet GI and DVT prophylaxis Continue by mouth intake Continue BENNIE drainage Repeat labs in a.m. Consider TPN and nothing by mouth status if BENNIE drain significantly increases. [facility] to cover me until June 01
[2019-05-25] MEDS ORDERED: KCL 20 MEQ/100 ML IVPREMIX* 20 MEQ/100 ML BAG IV SCH (17:00)
[2019-05-25] MEDS: Zolpidem TAB* 5 MG PO PRN (22:06)
--- NOTE | 2019-05-25 22:41 | CONS ---
CONSULTATION REPORT: DATE OF CONSULT: 05/25/19 PRIMARY CARE PROVIDER: Dr. Davidson Contreras. PROVIDER REQUESTING CONSULTATION: ALEM Hardin CONSULTING SERVICE: Infectious Disease. PROVIDER: Antonino Gerber NP ATTENDING PROVIDER: Dr. Rasta Levy.* (DICTATED BY ANTONINO GERBER NP) REASON FOR CONSULTATION: Fever. IMPRESSION: 1. Postoperative fever. Differential diagnosis includes atelectasis, pneumonia , abdominal infection, Clostridium difficile colitis, urinary tract infection. Chest x-rays shows atelectasis in the right lung base. No abdominal abscess seen on abdominal pelvis CT. Urinalysis is negative, low suspicion for urinary tract infection. Denies diarrhea, so low suspicion for C. diff colotis. Suspect the patient's symptoms could be secondary to atelectasis, but he does have Tanisha albicans growing from his BENNIE fluid obtained at admission. 2. Duodenal ulcer, status post omental patch. RECOMMENDATIONS: Recommend encouraging the patient to use incentive spirometry , and cough and deep breathing. Recommend continuing IV antibiotics for now until his upper GI series is back to show us if he has a bile leak or not. HISTORY OF PRESENT ILLNESS: Mr. Cardenas is a 59-year-old male with past medical history significant for arthritis, who underwent a right total knee arthroplasty on 01/27/19 and had been at home doing well. He underwent knee manipulation on 04/14/19 and was placed on naproxen at that time. Shortly after the patient developed vomiting and abdominal pain, was seen in the emergency room and was placed on antinausea medications. On 05/15/19, the patient again presented to the emergency room with complaints of severe abdominal pain and vomiting. He was found to have a perforated duodenal ulcer and underwent repair of the perforated ulcer and jejunostomy with Dr. Neville Downey. Additionally, the patient had a BENNIE drain placed at that time. He was doing well and was discharged home on 05/20/19. It is to be noted that prior to his discharge on 05/18/19, he had an upper GI series without signs of any leak. While at home, he developed a fever of 101 on 05/21/19. The patient's reports that the BENNIE drainage went from pale pink to a greenish brown color. He also had developed a cough around 05/15/19, but no change in the cough , no worsening, no increase in sputum production. On 05/21/19, the patient also had what he describes as a laryngitis, but no sore throat. He presented to the emergency room on 05/22/19 with fever. While in the emergency room, the patient had labs showing mild leukocytosis with a white blood cell count of 12,000, elevated CRP of 164.30. He had a negative urinalysis, group A strep was negative. He had blood cultures drawn. He was started on Zosyn. Additionally, he had an abdomen and pelvis CT scan in the emergency room showing postoperative changes and moderate amount of perinephric fluid which was not organized. No hydronephrosis, some retroperitoneal fluid noted. There was a small foci of mesenteric air in the region of the drainage catheter and a gastrojejunostomy tube was noted. He was admitted to the hospital for IV antibiotics and observation. While in the hospital, he has remained afebrile with the exception of a low- grade fever on 05/22/19 in the evening, with temperature max of 100.9. Continued to have leukocytosis, which has increased with 15.1000 WBC today. His blood cultures showed no growth on day 3. Body fluid collected from the BENNIE site with Tanisha albicans and Staphylococcus epidermidis. He had a sputum culture showing oral contamination. The patient developed a rash which was felt to be secondary to the Zosyn and his antibiotic was changed to Flagyl and cefepime on 05/23/19. The patient currently denies fevers, chills, joint pain, muscle pain. He reports 2 soft stools. Denies diarrhea. Reports improving rash on his abdomen. Denies urinary symptoms such as urgency, frequency, dysuria. He denies any recent travel. PAST MEDICAL HISTORY: 1. Arthritis. 2. Perforated duodenal ulcer. PAST SURGICAL HISTORY: 1. Status post omental patch of a duodenal ulcer, duodenal exclusion with gastrojejunostomy tube placement. 2. Status post right total knee arthroplasty. MEDICATIONS: Home medications include: 1. Acetaminophen 325 mg by mouth every 4 hours as needed for fever or pain. 2. Omeprazole 40 mg by mouth daily. Hospital medications: 1. Acetaminophen 650 mg by mouth every 4 hours as needed for fever or pain. 2. Cefepime 2 g IV every 12 hours. 3. Benadryl 25 mg by mouth every 8 hours as needed for itching. 4. Heparin sodium 5000 units subcutaneous every 8 hours. 5. Melatonin 3 mg by mouth at bedtime as needed for sleep. 6. Flagyl 500 mg IV every 8 hours. 7. Protonix 40 mg IV daily. 8. Ambien 5 mg by mouth at bedtime as needed for insomnia. ALLERGIES: He reports no known drug allergies, but possibly had a rash secondary to ZOSYN. FAMILY HISTORY: No family history or recurrent or resistant infections. Denies family history of coronary artery disease, diabetes or cancer. Father passed in his 60s due to COPD. SOCIAL HISTORY: Denies alcohol or tobacco use. He smokes marijuana daily. REVIEW OF SYSTEMS: I performed a 10-point review of systems. All the pertinent positives and negatives are mentioned in the history of present illness. The remaining review of systems is negative PHYSICAL EXAMINATION: Vital Signs: Temperature 98.4, heart rate 97, respiratory rate 16, O2 sat 94% on room air, blood pressure 128/70. General Appearance: Alert, pleasant, appears to be in no acute distress. Head: Normocephalic, atraumatic. ENT: Pupils are equal and reactive to light. Extraocular movements are intact. Mucous membranes are moist. Neck: Supple. No lymphadenopathy. Neurological: Alert and oriented x4. Cranial nerves II through XII are grossly intact. Cardiovascular: Heart rate is regular, S1, S2 are present. No murmurs, rubs, or gallops heard. Respiratory: No accessory muscle use. Lungs are clear but diminished in bases with scattered crackles on the right lung base. Abdomen: Bowel sounds present. Abdomen is soft, nontender , nondistended. Extremities: No lower extremity edema. DP and PT pulses are 2 +and symmetric. Musculoskeletal: No clubbing or cyanosis. The patient exhibits good strength in all extremities. There is no tenderness with palpation of the neck, spine or back. Psychological: Calm and cooperative. Skin: No rashes or abnormalities seen. He has a midline abdominal incision that is well approximated with queta intact, additionally has a BENNIE site to the right upper abdomen. BENNIE drain is draining a light green tinged drainage. DIAGNOSTIC STUDIES/LAB DATA: Sodium 134, potassium 3.8, chloride 102, CO2 of 28 , BUN 5, creatinine is 0.59, glucose is 127. White blood cell count 5.1, hemoglobin 10.0, hematocrit 30, platelet count 357. CRP 148.32. Urinalysis was negative. Please see impression and recommendations outlined above. Thank you for asking us to see Mr. Cardenas in consultation. The recommendations have been discussed with ALEM Hardin. The case has been reviewed with my attending, Dr. Rasta Levy who agrees with the plan of care. Reviewed by KEILY VALENCIA 05/30/192017 [id number] #: [id number] MTDD
[2019-05-26 05:20] LABS: Hematocrit 30 % (42-52); Mean Corpuscular HGB Conc 34 g/dL (31-36); Mean Corpuscular Hemoglobin 29 pg (27-31); Mean Corpuscular Volume 86 fL (80-94); Mean Platelet Volume 6.8 fL (7.4-10.4); Platelet Count 443 10^3/uL (150-450); Red Blood Count 3.42 10^6 /uL (4.18-5.48); Red Cell Distribution Width 14 % (10-15); White Blood Count 14.8 10^3/uL (3.5-10.8)
[2019-05-26] MEDS: metroNIDAZOLE IV 500 MG/100ML* 500 MG/100 ML BAG IVPB SCH ×3 (05:30→21:36)
[2019-05-26] MEDS: Heparin VIAL(*) 5000 UNITS/ML VIAL (FIVE THOUSAND) SUBCUT SCH ×3 (05:34→21:39)
[2019-05-26 05:59] LABS: ABS Eosinophils 0.4 10^3/ul (0-0.6); ABS Lymphocytes 1.5 10^3/ul (1.0-4.8); ABS Monocytes 1.3 10^3/ul (0-0.8); ABS Neutrophils 11.7 10^3/ul (1.5-7.7); Eosinophil % 2.4 %
[2019-05-26] MEDS: Cefepime 2 GM in Dextrose(*) 2 GM/50 ML BAG IV SCH ×2 (08:30→20:20)
[2019-05-26] MEDS: Pantoprazole IV* 40 MG IV SCH (08:30)
--- NOTE | 2019-05-26 12:02 | PN ---
<Zelda Perez - Last Filed: 05/26/19 14:04> Progress Note - Progress Note Date of Service: 05/26/19 Note: S: This is a 59 y/o male s/p large gastroduodenal ulcer post Flako plication now with bile leak likely from repair site. Pt has been short of breath during ambulation, but it has improved since ambulating on a regular basis the last few days and using a flutter valve. He has been coughing up some phlegm, but states he feels less SOB. He denies pain around surgical sites and BENNIE drain fluid is same color and consistency as yesterday. No leakage around BENNIE drain. Patient has had difficulty sleeping at night. Has been prescribed a PRN Rx for Ambien. Pt states this helps immensely for rest. Pt denies nausea, vomiting, abdominal pain, difficulty eating, drinking, voiding, fever, chills, chest pain. Active medications are as follows: Acetaminophen (Tylenol Tab*) 650 mg PO Q4H PRN PRN Reason: Pain Or Temperature >101 F Diphenhydramine HCl (Benadryl Po*) 25 mg PO Q6H PRN PRN Reason: ITCHING Last Admin: 05/24/19 00:03 Dose: 25 mg Heparin Sodium (Porcine) (Heparin Vial(*)) 5,000 units SUBCUT Q8HR [facility] Last Admin: 05/26/19 05:34 Dose: 5,000 units Cefepime HCl (Maxipime 2 Gm In Dextrose Duplex (*)) 2 gm in 50 mls @ 100 mls/ hr IV Q12H JAYLON Last Admin: 05/26/19 08:30 Dose: 100 mls/hr Metronidazole/Sodium Chloride (Flagyl 500 Mg Ivpb*) 500 mg in 100 mls @ 100 mls /hr IVPB Q8H JAYLON Last Admin: 05/26/19 05:30 Dose: 100 mls/hr Melatonin (Melatonin) 3 mg PO BEDTIME PRN PRN Reason: SLEEP Last Admin: 05/23/19 22:09 Dose: 3 mg Pantoprazole Sodium (Protonix Iv*) 40 mg IV DAILY JAYLON Last Admin: 05/26/19 08:30 Dose: 40 mg Zolpidem Tartrate (Ambien Tab*) 5 mg PO BEDTIME PRN PRN Reason: INSOMNIA Last Admin: 05/25/19 22:06 Dose: 5 mg O: Vital Signs - 8 hr 05/26/19 05/26/19 07:32 11:07 Temperature 98.2 F 98.4 F Pulse Rate 95 95 Respiratory 23 22 Rate Blood Pressure 128/67 122/69 (mmHg) O2 Sat by Pulse 95 95 Oximetry Vital Signs Temp 98.4 F 05/26/19 11:07 Pulse 95 05/26/19 11:07 Resp 22 05/26/19 11:07 BP 122/69 05/26/19 11:07 Pulse Ox 95 05/26/19 11:07 Intake & Output 05/25/19 05/26/19 05/26/19 18:59 06:59 18:59 Intake Total 1440 1336 Output Total 565 455 Balance 875 881 Intake: IV Fluids 1276 ABX - CEFEPIME 55 ABX - FLAGYL 210 NS (0.9%) 911 Potassium 100 Oral 1440 60 Output: BENNIE #1 40 155 Urine 525 300 Other: Estimated Void Medium # Voids 1 General: Non-toxic appearing in no acute distress. Can lay and sit without discomfort. A&O x 3. Cardio: Pulse is elevated but not tachycardic. This is how the patient has been trending per vital signs. Rhythm is regular. S1 and S2 auscultated without any murmurs, rubs, gallops, S3 or S4 auscultated. Respiratory: Coarse rhonchi auscultated in lower lobes bilaterally. Patient breathes normally without accessory muscle use or retractions. Surgical site: Jamieson are still in place without surrounding erythema or purulent drainage. BENNIE drain in place with bilious fluid, without blood. No leakage around drain site. No tenderness to palpation of the abdomen. Abnormal Lab Results 05/26/19 05/26/19 05:09 05:09 WBC 14.8 H RBC 3.42 L Hgb 10.0 L Hct 30 L MCV 86 MCH 29 MCHC 34 RDW 14 Plt Count 443 MPV 6.8 L Neut % (Auto) 78.8 Lymph % (Auto) 10.0 [place] % (Auto) 8.6 Eos % (Auto) 2.4 Baso % (Auto) 0.2 Absolute Neuts (auto) 11.7 H Absolute Lymphs (auto) 1.5 Absolute Monos (auto) 1.3 H Absolute Eos (auto) 0.4 Absolute Basos (auto) 0.0 Absolute Nucleated RBC 0.0 Nucleated RBC % 0.0 C-Reactive Protein 128.23 H CHEST PA LAT 2 views on [id number]. Indication: Pneumonia. Impression: No active cardiopulmonary disease noted A: s/p large gastroduodenal ulcer post Flako plication now with bile leak likely from repair site. WBC count decreased since yesterday, although still elevated at 14.8. P: Continue abx regimen, pulmonary toilet, GI and DVT prophylaxis, BENNIE drainage. Continue PO intake of food. Continue PRN prescription of Ambien for difficulty sleeping in the hospital. Continue ambulating regularly. <Tariq Willson - Last Filed: 05/26/19 16:28> Progress Note - Progress Note Note: Patient seen and examined with PA student, Zelda Perez. I agree with the above documentation. Case was also discussed with Dr. Downey. Continue present abx and follow BENNIE drainage with consideration of TPN if drainage does not decrease.
[2019-05-26] MEDS: Zolpidem TAB* 5 MG PO PRN (21:41)
[2019-05-27] MEDS: metroNIDAZOLE IV 500 MG/100ML* 500 MG/100 ML BAG IVPB SCH ×3 (05:26→20:47)
[2019-05-27] MEDS: Heparin VIAL(*) 5000 UNITS/ML VIAL (FIVE THOUSAND) SUBCUT SCH ×3 (05:27→20:49)
[2019-05-27] MEDS: Pantoprazole IV* 40 MG IV SCH (07:58)
[2019-05-27] MEDS: Cefepime 2 GM in Dextrose(*) 2 GM/50 ML BAG IV SCH ×2 (08:04→19:33)
--- NOTE | 2019-05-27 11:19 | PN ---
Progress Note - Progress Note Date of Service: 05/27/19 Note: Surgery Progress Note S: Patient has no complaints this morning. He is eating without difficulty, ambulating, does not have any pain. He remains afebrile. O: Vital Signs: Temp Pulse Resp BP Pulse Ox 97.9 F 96 18 116/58 96 05/27/19 08:24 05/27/19 08:24 05/27/19 08:24 05/27/19 08:24 05/27/19 08:24 Laboratory Last Values WBC 14.8 10^3/uL (3.5-10.8) H 05/26/19 05:09 RBC 3.42 10^6 /uL (4.18-5.48) L 05/26/19 05:09 Hgb 10.0 g/dL (14.0-18.0) L 05/26/19 05:09 Hct 30 % (42-52) L 05/26/19 05:09 MCV 86 fL (80-94) 05/26/19 05:09 MCH 29 pg (27-31) 05/26/19 05:09 MCHC 34 g/dL (31-36) 05/26/19 05:09 RDW 14 % (10-15) 05/26/19 05:09 Plt Count 443 10^3/uL (150-450) 05/26/19 05:09 MPV 6.8 fL (7.4-10.4) L 05/26/19 05:09 Neut % (Auto) 78.8 % 05/26/19 05:09 Lymph % (Auto) 10.0 % 05/26/19 05:09 [place] % (Auto) 8.6 % 05/26/19 05:09 Eos % (Auto) 2.4 % 05/26/19 05:09 Baso % (Auto) 0.2 % 05/26/19 05:09 Absolute Neuts (auto) 11.7 10^3/ul (1.5-7.7) H 05/26/19 05:09 Absolute Lymphs (auto) 1.5 10^3/ul (1.0-4.8) 05/26/19 05:09 Absolute Monos (auto) 1.3 10^3/ul (0-0.8) H 05/26/19 05:09 Absolute Eos (auto) 0.4 10^3/ul (0-0.6) 05/26/19 05:09 Absolute Basos (auto) 0.0 10^3/ul (0-0.2) 05/26/19 05:09 Absolute Nucleated RBC 0.0 10^3/ul 05/26/19 05:09 Nucleated RBC % 0.0 05/26/19 05:09 INR (Anticoag Therapy) 1.74 (0.82-1.09) H 05/23/19 04:59 APTT 36.2 seconds (26.0-38.0) 05/23/19 04:59 Sodium 134 mmol/L (135-145) L 05/25/19 05:27 Potassium 3.8 mmol/L (3.5-5.0) 05/25/19 05:27 Chloride 102 mmol/L (101-111) 05/25/19 05:27 Carbon Dioxide 26 mmol/L (22-32) 05/25/19 05:27 Anion Gap 6 mmol/L (2-11) 05/25/19 05:27 BUN 5 mg/dL (6-24) L 05/25/19 05:27 Creatinine 0.57 mg/dL (0.67-1.17) L 05/25/19 05:27 Est GFR ( Amer) 177.7 (>60) 05/25/19 05:27 Est GFR (Non-Af Amer) 146.8 (>60) 05/25/19 05:27 BUN/Creatinine Ratio 8.8 (8-20) 05/25/19 05:27 Glucose 127 mg/dL (70-100) H 05/25/19 05:27 Lactic Acid 1.4 mmol/L (0.5-2.0) 05/22/19 09:25 Calcium 8.4 mg/dL (8.6-10.3) L 05/25/19 05:27 Phosphorus 3.2 mg/dL (2.5-5.0) 05/25/19 05:27 Magnesium 1.7 mg/dL (1.9-2.7) L 05/25/19 05:27 Total Bilirubin 0.70 mg/dL (0.2-1.0) 05/25/19 05:27 AST 11 U/L (13-39) L 05/25/19 05:27 ALT 15 U/L (7-52) 05/25/19 05:27 Alkaline Phosphatase 144 U/L (34-104) H 05/25/19 05:27 C-Reactive Protein 128.23 mg/L (<8.01) H 05/26/19 05:09 Total Protein 5.7 g/dL (6.4-8.9) L 05/25/19 05:27 Albumin 2.6 g/dL (3.2-5.2) L 05/25/19 05:27 Globulin 3.1 g/dL (2-4) 05/25/19 05:27 Albumin/Globulin Ratio 0.8 (1-3) L 05/25/19 05:27 Lipase < 10 U/L (11.0-82.0) L 05/22/19 09:25 Urine Color Yellow 05/23/19 15:01 Urine Appearance Clear 05/23/19 15:01 Urine pH 8.0 (5-9) 05/23/19 15:01 Ur Specific [place] 1.016 (1.010-1.030) 05/23/19 15:01 Urine Protein Negative (Negative) 05/23/19 15:01 Urine Ketones Negative (Negative) 05/23/19 15:01 Urine Blood Negative (Negative) 05/23/19 15:01 Urine Nitrate Negative (Negative) 05/23/19 15:01 Urine Bilirubin Negative (Negative) 05/23/19 15:01 Urine Urobilinogen Negative (Negative) 05/23/19 15:01 Ur Leukocyte Esterase Negative (Negative) 05/23/19 15:01 Urine Glucose Negative (Negative) 05/23/19 15:01 Group A Strep Rapid Negative (Negative) 05/23/19 12:50 Intake & Output 05/26/19 05/27/19 05/27/19 22:59 06:59 14:59 Intake Total 442 285 Output Total 485 415 50 Balance -43 -130 -50 Intake: IV Fluids 92 105 ABX - CEFEPIME 55 ABX - FLAGYL 105 NS (0.9%) 37 IVPB 110 ABX - FLAGYL 110 Oral 240 180 Output: BENNIE #1 60 65 50 Urine 425 350 Other: Estimated Void Large # Bowel Movements 0 0 # Voids 1 Physical exam: Abdomen- soft, non tender, incision c/d/i with queta in place. BENNIE drain with yellow-kaley opaque drainage, not frankly bilious A/P: 59 M post op exploratory laparotomy, omental patch repair of perforated duodenal ulcer with duodenal exclusion and gastrojejunostomy on 05/15 who was readmitted for fevers and bilious drain output. - 24 hour drain output yesterday unchanged and remains elevated at 235cc. He continues to be able to eat, is without pain, is afebrile and UGI showed no evidence of leak on 05/25. WBC yesterday was stable at 14.8. Likely has small leak from kaitlynn patch repair site, which is excluded. I discussed possibility of placing patient on TPN and limited PO intake to help decrease drain output with the patient and his and that Dr. Tubbs would determine this tomorrow. Patient was discouraged with prolonged hospitalization but I explained he could go home eventually with TPN and overall he appears to be stable. - Continue cefepime and flagyl, FU ID consult - Continue regular diet - Continue protonix IV - CBC ordered for tomorrow
[2019-05-27] MEDS: Zolpidem TAB* 5 MG PO PRN (20:49)
[2019-05-28] MEDS: metroNIDAZOLE IV 500 MG/100ML* 500 MG/100 ML BAG IVPB SCH (05:11)
[2019-05-28] MEDS: Heparin VIAL(*) 5000 UNITS/ML VIAL (FIVE THOUSAND) SUBCUT SCH (05:11)
[2019-05-28 05:19] LABS: Hematocrit 31 % (42-52); Hemoglobin 10.3 g/dL (14.0-18.0); Mean Corpuscular HGB Conc 33 g/dL (31-36); Mean Corpuscular Hemoglobin 29 pg (27-31); Mean Corpuscular Volume 87 fL (80-94); Mean Platelet Volume 6.7 fL (7.4-10.4); Platelet Count 555 10^3/uL (150-450); Red Blood Count 3.56 10^6 /uL (4.18-5.48); Red Cell Distribution Width 14 % (10-15); White Blood Count 14.9 10^3/uL (3.5-10.8)
[2019-05-28 08:02] VITALS: BP 118/68
[2019-05-28] MEDS: Cefepime 2 GM in Dextrose(*) 2 GM/50 ML BAG IV SCH (08:23)
[2019-05-28] MEDS: Pantoprazole IV* 40 MG IV SCH (09:34)
--- NOTE | 2019-05-28 10:32 | PN ---
Progress Note - Progress Note Date of Service: 05/28/19 SOAP: Subjective: No pain/F/C. Tolerating diet. Able to manage BENNIE and quantifying o/p with staff. Has bowel fct. Objective: Vital Signs Temp 98.6 F 05/28/19 07:58 Pulse 106 05/28/19 07:58 Resp 20 05/28/19 07:58 BP 118/68 05/28/19 07:58 Pulse Ox 96 05/28/19 07:58 Gen: NAD Abd: ND, soft, NT; BENNIE with bile tinged o/p; incision c/d/i and no erythema. Vignesh removed and steristrips applied. Intake & Output 05/27/19 05/28/19 05/28/19 18:59 06:59 18:59 Intake Total 575 964 400 Output Total 125 530 20 Balance 450 434 380 Intake: IV Fluids 20 NS (0.9%) 20 IVPB 55 374 ABX - CEFEPIME 55 265 ABX - FLAGYL 109 Oral 500 590 400 Output: BENNIE #1 125 150 20 Urine 380 Other: Estimated Void Large # Bowel Movements 0 # Voids 3 Assessment: Postop duodenal ulcer repair with well controlled leak. The leak is not high output and he is able to tolerate regular diet. He is not septic and has no fever. Plan: Management options were discussed with the patient and his . I think either we can aggressively treat with NPO status, TPN and octreatide, or continue this conservative management and change antibiotics to po. In that case he can be followed as an outpatient. We discussed the risks, benefits, alternatives of each treatment and all questions were answered. He prefers the latter option. I confirmed with Dr. Kay that IV antibiotics were not needed. He recommends: Levaquin 500mg qd and Flagyl 500mg bid x 1 week and will f/u as outpt. PPI po bid. Will discharge. f/u with Dr. Downey in office.
--- NOTE | 2019-05-28 12:56 | DS ---
CC: Davidson Contreras MD; Neville Downey MD DISCHARGE SUMMARY: DATE OF ADMISSION: 05/22/19 DATE OF DISCHARGE: 05/28/19 DISCHARGE DIAGNOSES: 1. Leak from duodenal repair status post repair of perforated duodenal ulcer with duodenal exclusion . 2. Postoperative fever. 3. Hypokalemia. 4. Severe malnutrition. PROCEDURES: None. HOSPITAL COURSE: The patient is a 59-year-old gentleman who presented to the emergency room on 05/22 having undergone surgery 1 week prior and he was admitted for workup of fever and also noted to h ave evidence of leak from his duodenal ulcer repair site. He was placed on IV antibiotics and he did have a CT scan on the , which demonstrated no collections and no anastomotic leaks. He had deve loped a rash and was having cough and laryngitis, for which consultation was obtained from Ade saldana NP for hospital medicine service and at that point, he was recommended to stop the Zosyn that he had been placed on initially and changed to Flagyl and cefepime as it was thought the rash is sec ondary to this. Subsequently, his rash did improve. Dr. Downey saw him on 05/24/19, ordered an upper GI x-ray and that was normal without leak. He did have an infectious disease consultation on 9 by Niurka Pelletier, which recommended encouraging use of his incentive spirometry due to a telectasis and continuing intravenous antibiotics. I did have a followup conversation with her today as well as with Dr. Levy and it was felt that if the patient was able to tolerate his diet then he could be changed to oral antibiotics. On monitoring of his drainage from his BENNIE, it remained betw een 200 and 300 mL per day and after discussions with the patient, his , Infectious Disease servi ce as well as with nursing, it was decided he would be able to be discharged home with oral antibioti cs, to continue his diet and his BENNIE drain and then follow up in the office as an outpatient. I did e xplain to the patient and his that if his situation changes, then he may require readmission. A ll questions were answered and they are agreeable to the plan. He will be discharged home on proton pump inhibitor, Levaquin 500 mg daily, and Flagyl 500 mg twice daily as per Dr. Levy. If he does not have any pain, he will not be prescribed any pain medication for discharge. He will continue re gular diet and add Boost or Ensure supplemental shakes to improve his protein intake. [id number]/[facility] #: [id number]
== END 2019-05-28 12:00 | disposition home or self-care (01) | DRG 252 ==
LOC: ED 08:42 → SSU 15:27 → OBSVTOIN 05-24 15:40 → SSU 05-27 10:55
PROVIDERS: ADMIT Surgery; ATTEND Surgery
DX: K91.89 Other postprocedural complications and disorders of digestive system (principal); E43 Unspecified severe protein-calorie malnutrition; B37.89 Other sites of candidiasis; J90 Pleural effusion, not elsewhere classified; J98.11 Atelectasis; R50.82 Postprocedural fever; M76.9 Unspecified enthesopathy, lower limb, excluding foot; Z96.651 Presence of right artificial knee joint; E87.6 Hypokalemia; B95.7 Other staphylococcus as the cause of diseases classified elsewhere; J04.0 Acute laryngitis; L27.0 Generalized skin eruption due to drugs and medicaments taken internally; M17.12 Unilateral primary osteoarthritis, left knee; Y83.2 Surgical operation with anastomosis, bypass or graft as the cause of abnormal reaction of the patient, or of later complication, without mention of misadventure at the time of the procedure; T36.0X5A Adverse effect of penicillins, initial encounter; Z82.5 Family history of asthma and other chronic lower respiratory diseases; Z84.1 Family history of disorders of kidney and ureter; Z72.89 Other problems related to lifestyle; Z93.4 Other artificial openings of gastrointestinal tract status; Z87.891 Personal history of nicotine dependence; Z68.25 Body mass index [BMI] 25.0-25.9, adult; Y92.9 Unspecified place or not applicable; Z81.2 Family history of tobacco abuse and dependence
CPT/HCPCS: 36415; 71046; 74177; 74246; 80048; 80053; 81003; 83605; 83690; 83735; 84100; 85025; 85027; 85610; 85730; 86140; 87040; 87070; 87077; 87106; 87186; 87205; 87640; 87641; 87651; 99285; A9270-GY; G0378; J0692; J1644; J2543; J3475; J3480; J3490; Q9967

== ENCOUNTER 2019-06-14 17:18 | Inpatient (IN) | payer BC ==
--- OUTSIDE RECORDS SUMMARY | 2019-06-14 17:52 | XMS REPORT | Continuity of Care Document ---
:1960 External Reference #:[id number] Author Name Fallon Burger Care Team Providers Name Role Phone Davidson Contreras MD Primary Care Physician Unavailable Payers Date Identification Numbers Payment Provider Subscriber Policy Number: [id number] [facility] Kevin Beck PayID: [id number] [address] [address] [place] [address] Problems Active Problems Provider Date Localized, primary osteoarthritis Jean Oliver MD Onset: 01/07/2019 Knee stiff Jean Oliver MD Onset: 05/06/2019 Aftercare following joint replacement Jean Oliver MD Onset: 2018 surgery Family History Date Family Member(s) Observation Comments General No Current Problems Father due to Emphysema () Social History Type Date Description Comments Sex Unknown Marital Status Lives With Spouse Occupation [employer] ETOH Use Denies alcohol use Tobacco Use Start: Unknown Patient has never smoked Recreational Drug Use Former Drug User quit Marijuana 2017 Smoking Status Reviewed: 06/14/19 Patient has never smoked Exercise Type/Frequency Exercises sporadically Allergies, Adverse Reactions, Alerts Active Allergies Reaction Severity Comments Date Zosyn 06/08/2019 Inactive Allergies NKDA 01/07/2019 Medications Active Medications SIG Qnty Indications Ordering Provider Date Ondansetron take 1 every 8 30tabs Deborah Petersen MD 04/16/2019 8mg Tablets hours as needed Dispers nausea Multivitamins 1 by mouth every Unknown Capsules day Levaquin 1 by mouth every Unknown 500mg Tablets day Omeprazole Take 1 Capsule Unknown 40mg Capsules By Mouth Every DR Day History Medications Methylprednisolone take medrol dose 1units Jean Ch 04/27/2019 - 4mg TBPK pack as directed MD Melody Unknown Tylenol 8 Hour Take one tab by 60tabs [facility] 04/20/2019 - 650mg Tablets ER mouth q4h MD Melody Unknown Tramadol HCL 1 tablet by mouth 30tabs [facility] 04/16/2019 - 50mg Tablets every 6 hours as MD Melody Unknown needed pain Medrol take as directed 21tabs [facility] 04/13/2019 - 4mg Tablets per dosepak MD Melody Unknown instructions Oxycodone-Acetaminophen 1-2 tas by mouth 60tabs [facility] 04/13/2019 - 5-325mg every 4-6 hours as MD Melody Unknown Tablets needed for post-op pain. Naproxen 1 by mouth twice a 60tabs [facility] 03/16/2019 - 500mg Tablets day as needed pain. MD Melody Unknown Do not take while on the medrol dosepak Colace 1 tab every 12 90caps [facility] 01/28/2019 - 100mg Capsules hours as needed for MD Melody 03/15/2019 constipation Eliquis 1 tab by mouth 60tabs [facility] 01/28/2019 - 2.5mg Tablets every 12 hours for MD Melody 03/15/2019 30 days Oxycodone-Acetaminophen 1 by mouth every 60tabs [facility] 01/28/2019 - 5-325mg 4-6 hours as needed MD Melody 04/07/2019 Tablets for post-op pain. No Active Medications Unknown 01/07/2019 - 01/28/2019 Miralax take 1 packet daily Unknown - [id number] Packet as needed for Unknown constipation Flagyl one pill twice a Unknown - 500mg Tablets day, no alcohol Unknown with product Medications Administered in Office Medication SIG Qnty Indications Ordering Provider Date Depomedrol 40MG Jean Oliver MD 03/16/2019 Injection Vital Signs Date Vital Result Comment 06/14/2019 10:56am Heart Rate 84 /min BP Systolic 118 mmHg BP Diastolic 70 mmHg Respiratory Rate 16 /min Body Temperature 98.0 F 06/08/2019 9:46am Height 69 inches 5'9" Weight 170.00 lb Heart Rate 112 /min BP Systolic 112 mmHg BP Diastolic 70 mmHg Respiratory Rate 16 /min BMI (Body Mass Index) 25.1 kg/m2 05/31/2019 3:53pm Height 69 inches 5'9" Weight 168.00 lb Heart Rate 88 /min BP Systolic Sitting 116 mmHg Right arm, reg cuff BP Diastolic Sitting 70 mmHg Right arm, reg cuff Respiratory Rate 16 /min Body Temperature 98.1 F BMI (Body Mass Index) 24.8 kg/m2 05/06/2019 9:00am Height 69 inches 5'9" Heart [...] Test Result H/L Range Note Xray 03/16/2019 [facility] Knee 3 Views <pending> [address] [place] [address] [phone] CBC Auto Diff 01/15/2019 [facility] White Blood 7.1 10^3/uL N 3.5-10.[address] [place] [address] [phone] Red Blood Count 4.99 10^6/uL N 4.00-5.40 [...] Blood Cells % 0.1 Urinalysis Profile 01/15/2019 [facility] Urine Color Yellow [address] [place] [address] [phone] Urine Appearance Cloudy Urine Specific [place] 1.013 N 1.010-1.030 Urine pH 5.0 N 5-9 Urine Urobilinogen Negative Negative Urine Ketones Negative Negative Urine Protein Negative Negative Urine Leukocytes Negative Negative Urine Blood Negative Negative Urine Nitrite Negative Negative Urine Bilirubin Negative Negative Urine Glucose Negative Negative Comp Metabolic Panel 01/15/2019 [facility] Sodium 139 mmol/L N 135-145 [address] [place] [address] [phone] Potassium 4.3 mmol/L N 3.5-5.0 Chloride 106 [...] >60 Egfr 115.5 >60 1 Inr/Protime 01/15/2019 [facility] Inr 1.02 N 0.77-1.[address] [place], [place] [id number] [phone] Laboratory test 01/15/2019 [facility] Partial 42.8 seconds High 26.0-36.[address] [place] [address] Time PTT [phone] Type & Screen 01/15/2019 [facility] Patient O Positive [address] [place] [address] [phone] Antibody Screen NEGATIVE Urine Culture And 01/15/2019 [facility] Urine Culture SEE RESULT [address] [place] [address] [phone] 1 Because ethnic data is not always [...] [address]: Jean Oliver MD Acct: [id number] Unit: [id number] AGE: 58 Location: [facility] Re01/15/19 SEX: M Status: REG REF SPEC: [id number] DELIA: 01/15/19-[address] [facility] [address]: Jean Oliver MD REQ: [id number] RECD: 01/15/19 STATUS: JESSICA WHIPPLE DR: Davidson Contreras MD _ SOURCE: URINE SPDESC: ORDERED: Urine Culture QUERIES: Urine Source: Random Procedure Result Reported Site Urine Culture Final 01/16/19- 0822 ML No Growth (<1,000 CFU/mL) * ML - Main Lab . END OF REPORT DEPARTMENT OF PATHOLOGY, [address] [place] [address] Yuan Zendejas M.D. Director [facility] # [id number] Procedures Date Code Description Status 04/14/2019 76447 Manipulation Knee Under Generl Anesth. Incl Application Completed Traction 04/14/2019 89520 Manipulation Knee Under Generl Anesth. Incl Application Completed Traction 03/16/2019 35289 Inject/Drain Joint/Bursa Major W/O US Completed 01/27/2019 90034 TKR Total Knee Replacement Completed 01/27/2019 91773 TKR Total Knee Replacement Completed 01/15/2019 26676 EKG, Interpretation Only Completed Encounters Type Date Location Provider Dx Diagnosis Office Visit 05/25/2019 [facility] Calixto R50.82 Postprocedural fever 9:04a Infectious Gerber, [facility] J98.11 Atelectasis Office Visit 05/15/2019 7:00a Surgical Neville Brown K26.1 Acute duodenal [facility] MD Nasreen, ulcer with FACS perforation Office Visit 01/07/2019 8:00a Orthopedic Jean Ch M17.11 Unilateral Services Of MD Melody primary C.M.A. osteoarthritis, right knee Plan of Treatment Future Appointment(s):06/21/2019 11:15 am - Neville Downey MD, FACS at [facility]06/14/2019 - Terrence Willson, PAK26.1 Acute duodenal ulcer with perforationNew Labs:CBC Auto Diff, Ordered: 06/14/19Comp Metabolic Panel, Ordered: 06/14/19Lipase, Ordered: 06/14/19C Reactive Protein, Ordered: 06/14/19
--- OUTSIDE RECORDS SUMMARY | 2019-06-14 17:53 | XMS REPORT | Continuity of Care Document ---
:1960 External Reference #:[id number] Author Name Marie Pelletier PA-C Address [address] [place] [address] [place] [address] Care Team Providers Name Role Phone Davidson Contreras MD Care Team Information Medical Doctor Nuclear Medicine Unavailable Davidson Contreras MD Primary Care Physician Unavailable Payers Date Identification Numbers Payment Provider Subscriber Policy Number: [id number] [facility] [place] Kevin Beck PayID: [id number] [address] [address] [place] [address] Problems Active Problems Provider Date Right upper quadrant pain Marie Pelletier PA-C Onset: 05/14/2019 Right lower quadrant pain Marie Pelletier PA-C Onset: 05/14/2019 Social History Type Date Description Comments Sex Unknown Tobacco Use Start: Unknown Patient has never smoked Smoking Status Reviewed: 05/14/19 Patient has never smoked Allergies, Adverse Reactions, Alerts Description No Known Drug Allergies Medications Active Medications SIG Qnty Indications Ordering Date Provider Amoxicillin/Clavulanate 2 tabs by mouth 28tabs R10.11 Forest Ohara 05/14/2019 Potassium ER q12 hours for 7 MD Otis 1000-62.5mg days Tablets ER 12HR Ondansetron 1 tab by mouth 60tabs R10.11 Forest Ohara 05/14/2019 4mg Tablets every 4-6 hours MD Otis Dispers as needed for nausea Tramadol HCL Take One Tablet Unknown 50mg Tablets By Mouth Every 6 Hours as Needed For Pain - Maximum Daily Dose Of4 Tablets Per Day Pantoprazole Sodium Take 1 Tablet By Unknown 40mg Mouth Every Day Tablets Metoclopramide HCL Take One Tablet Unknown 10mg By Mouth Every 6 Tablets Hours as Needed For Nausea And Vomiting History Medications Colyte With Flavor by mouth as 4000ml Forest Berg, 12/04/2015 - Packs directed 05/13/2019 240gm Solution Rec No Active Medications Unknown 12/01/2015 - 12/04/2015 Vital Signs Date Vital Result Comment 05/14/2019 9:03am Height 69 inches 5'9" Weight 174.00 lb BP Systolic 151 mmHg BP Diastolic 90 mmHg Heart Rate 78 /min BMI (Body Mass Index) 25.7 kg/m2 12/01/2015 8:20am Height 69 inches 5'9" Weight 185.00 lb BMI (Body Mass Index) 27.3 kg/m2 Results Test Date Facility Test Result H/L Range Note CBC W/Auto 05/09/2019 [facility] White Blood <pending> Differential(!) Count Ser Auto CNT RBC Red Blood Count <pending> Hemoglobin Blood <pending> Hematocrit <pending> MCV (Corpuscular Volume) <pending> MCH (Corpuscular Hemoglobin) <pending> MCHC (Corpuscular Hemog Conc) <pending> RDW <pending> Platelet Count Blood Auto CNT <pending> MPV <pending> Lymph% <pending> [place]% <pending> Neutrophil % <pending> Absolute Lymphocytes <pending> Absolute Monocytes <pending> Absolute Neutrophils <pending> CMP(!) 05/09/2019 [facility] Sodium(!) <pending> Potassium(!) <pending> Chloride Serum/Plasma(!) <pending> Carbon Dioxide Ser/Plasm(!) <pending> BUN - Urea Nitrogen(!) <pending> Calcium Ser/Plasma Mass/Vol(!) <pending> Creatinine Serum Mass/Vol(!) <pending> Glucose Serum(!) <pending> BUN/Creatinine Ratio(!) <pending> Albumin Serum/Plasma(!) <pending> Alkaline Phosphatase(!) <pending> Bilirubin Total Mass/Vol(!) <pending> Ast - Sgot <pending> Alt - SGPT <pending> Protein Total <pending> Laboratory test 05/09/2019 [facility] C-Reative Protein <pending> finding Laboratory test 05/09/2019 [facility] Lactic Acid <pending> finding Ser/Plas Mass/Vol Xray 05/09/2019 [facility] [place], Abd & Pelvis <pending> W/O Contrast Xray 05/09/2019 [facility] [place] Abdomen/KUB 1VW <pending> CBC W/Auto 04/19/2019 [facility] White Blood Count <pending> Differential(!) Ser Auto CNT RBC Red Blood Count <pending> Hemoglobin Blood <pending> Hematocrit <pending> MCV (Corpuscular Volume) <pending> MCH (Corpuscular Hemoglobin) <pending> MCHC (Corpuscular Hemog Conc) <pending> RDW <pending> Platelet Count Blood Auto CNT <pending> MPV <pending> Lymph% <pending> [place]% <pending> Neutrophil % <pending> Absolute Lymphocytes <pending> Absolute Monocytes <pending> Absolute Neutrophils <pending> Xray 04/19/2019 [facility] [place], Abd & Pelvis <pending> W/ Contrast Laboratory test 01/02/2016 [facility] Surgical Interface SEE RESULT BELOW 1 finding Order 1 SEE RESULT BELOW Name: KEVIN BECK : [address]: Forest Berg MD Acct: [id number] Unit: [id number] AGE: 55 Location: [facility] Re01/02/16 SEX: M Status: REG REF SPEC: [id number] DELIA: 01/02/16 [facility] DR: Forest Berg MD REQ: [id number] RECD: 01/02/16 STATUS: LUIS WHIPPLE DR: Davidson Contreras MD _ ORDERED: LEVEL IV FINAL DIAGNOSIS Colon, 35 cm, biopsy: -- Tubular adenoma. -- No high grade dysplasia or malignancy. CLINICAL HISTORY Colonoscopy to terminal ileum. Polyp at 25 cm, biopsied. Tics. Five years. GROSS DESCRIPTION The specimen is received in formalin labeled, Biopsy Colon Polyp at 35 cm, and consists of a 0.4 x 0.2 x 0.1 cm rajput-pink irregular soft tissue fragment, which is submitted entirely in one cassette. Signed (signature on file) Yuan Zendejas MD [id number] END OF REPORT * ML=Testing performed at Main Lab DEPARTMENT OF PATHOLOGY, [address] [place] [address] Yuan Zendejas M.D. Director [facility] # [id number] Procedures Date Code Description Status 01/02/2016 12081 Colonscopy+Biopsy Completed Plan of Treatment 05/14/2019 - ALEM Sorenson-CR10.31 Right lower quadrant painR10.11 Right upper quadrant painNew Medication:Amoxicillin/Clavulanate Potassium ER 1000-62.5 mg - 2 tabs by mouth q12 hours for 7 daysOndansetron 4 mg - 1 tab by mouth every 4-6 hours as needed for nausea
--- OUTSIDE RECORDS SUMMARY | 2019-06-14 17:53 | XMS REPORT | Continuity of Care Document ---
:1960 External Reference #:[id number] Author Name Kadi Shell Care Team Providers Name Role Phone Davidson Contreras MD Primary Care Physician Unavailable Payers Date Identification Numbers Payment Provider Subscriber Policy Number: [id number] [facility] Kevin Beck PayID: [id number] [address] [address] [place] [address] Problems Active Problems Provider Date Localized, primary osteoarthritis Jean Oliver MD Onset: 01/07/2019 Knee stiff Jean Oliver MD Onset: 05/06/2019 Aftercare following joint replacement Jean Oliver MD Onset: 2018 surgery Family History Date Family Member(s) Observation Comments General No Current Problems Father due to Emphysema () Social History Type Date Description Comments Sex Unknown Marital Status Lives With Spouse 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 ETOH Use Denies alcohol use Tobacco Use Start: Unknown Patient has never smoked Recreational Drug Use Former Drug User quit Marijuana 2017 Smoking Status Reviewed: 05/31/19 Patient has never smoked Exercise Type/Frequency Exercises sporadically Allergies, Adverse Reactions, Alerts Description No Known Drug Allergies Medications Active Medications SIG Qnty Indications Ordering Date Provider Methylprednisolone take medrol dose 1units [facility] 04/27/2019 4mg TBPK pack as directed MD Melody Tylenol 8 Hour Take one tab by 60tabs [facility] 04/20/2019 650mg Tablets mouth q4h MD Melody ER Ondansetron take 1 every 8 30tabs Deborah Petersen, 04/16/2019 8mg Tablets hours as needed Dispers nausea Tramadol HCL 1 tablet by mouth 30tabs [facility] 04/16/2019 50mg Tablets every 6 hours as MD Melody needed pain Oxycodone-Acetaminophen 1-2 tas by mouth 60tabs [facility] 04/13/2019 every 4-6 hours as MD Melody 5-325mg Tablets needed for post-op pain. Medrol take as directed 21tabs [facility] 04/13/2019 4mg Tablets per dosepak MD Melody instructions Naproxen 1 by mouth twice a 60tabs [facility] 03/16/2019 500mg Tablets day as needed MD Melody pain. Do not take while on the medrol dosepak Multivitamins 1 by mouth every Unknown Capsules day Levaquin 1 by mouth every Unknown 500mg Tablets day History Medications Colace 1 tab every 12 hours 90caps [facility] 01/28/2019 - 100mg Capsules as needed for MD Melody 03/15/2019 constipation Eliquis 1 tab by mouth every 60tabs [facility] 01/28/2019 - 2.5mg Tablets 12 hours for 30 days MD Melody 03/15/2019 Oxycodone-Acetaminop 1 by mouth every 4-6 60tabs [facility] 01/28/2019 - hen hours as needed for MD Melody 04/07/2019 5-325mg Tablets post-op pain. No Active Unknown 01/07/2019 - Medications 01/28/2019 Miralax take 1 packet daily Unknown - 3350NF Packet as needed for Unknown constipation Flagyl one pill twice a day, Unknown - 500mg Tablets no alcohol with Unknown product Medications Administered in Office Medication SIG Qnty Indications Ordering Provider Date Depomedrol 40MG Jean Oliver MD 03/16/2019 Injection Vital Signs Date Vital Result Comment 05/31/2019 3:53pm Height 69 inches 5'9" Weight [...] Test Result H/L Range Note Xray 03/16/2019 [facility] Knee 3 Views <pending> [address] [place] [address] [phone] CBC Auto Diff 01/15/2019 [facility] White Blood 7.1 10^3/uL N 3.5-10.[address] [place] [address] [phone] Red Blood Count 4.99 10^6/uL N 4.00-5.40 [...] Blood Cells % 0.1 Urinalysis Profile 01/15/2019 [facility] Urine Color Yellow [address] [place] [address] [phone] Urine Appearance Cloudy Urine Specific Jerome 1.013 N 1.010-1.030 Urine pH 5.0 N 5-9 Urine Urobilinogen Negative Negative Urine Ketones Negative Negative Urine Protein Negative Negative Urine Leukocytes Negative Negative Urine Blood Negative Negative Urine Nitrite Negative Negative Urine Bilirubin Negative Negative Urine Glucose Negative Negative Comp Metabolic Panel 01/15/2019 [facility] Sodium 139 mmol/L N 135-145 [address] [place] [address] [phone] Potassium 4.3 mmol/L N 3.5-5.0 Chloride 106 [...] >60 Egfr 115.5 >60 1 Inr/Protime 01/15/2019 [facility] Inr 1.02 N 0.77-1.[address] [place] [address] [phone] Laboratory test 01/15/2019 [facility] Partial 42.8 seconds High 26.0-36.[address] [place] [address] Time PTT [phone] Type & Screen 01/15/2019 [facility] Patient O Positive [address] [place] [address] [phone] Antibody Screen NEGATIVE Urine Culture And 01/15/2019 [facility] Urine Culture SEE RESULT [address] [place] [address] [phone] 1 Because ethnic data is not always [...] [address]: Jean Oliver MD Acct: [id number] Unit: [id number] AGE: 58 Location: [facility] Re01/15/19 SEX: M Status: REG REF SPEC: [id number] DELIA: 01/15/19-1010 [facility] [address]: Jean Oliver MD REQ: [id number] RECD: 01/15/19 STATUS: JESSICA WHIPPLE DR: Davidson Contreras MD _ SOURCE: URINE SPDESC: ORDERED: Urine Culture QUERIES: Urine Source: Random Procedure Result Reported Site Urine Culture Final 01/16/19- 08 ML No Growth (<1,000 CFU/mL) * ML - Main Lab . END OF REPORT DEPARTMENT OF PATHOLOGY, [address] [place] [address] Yuan Zendejas M.D. Director [facility] # [id number] Procedures Date Code Description Status 04/14/2019 52438 Manipulation Knee Under Generl Anesth. Incl Application Completed Traction 04/14/2019 53211 Manipulation Knee Under Generl Anesth. Incl Application Completed Traction 03/16/2019 52548 Inject/Drain Joint/Bursa Major W/O US Completed 01/27/2019 47954 TKR Total Knee Replacement Completed 01/27/2019 40639 TKR Total Knee Replacement Completed 01/15/2019 58680 EKG, Interpretation Only Completed Encounters Type Date Location Provider Dx Diagnosis Office Visit 05/15/2019 Surgical Neville Downey, K26.1 Acute duodenal 7:[facility] ulcer with perforation Office Visit 01/07/2019 Orthopedic Jean Ch M17.11 Unilateral primary 8:[facility] MD osteoarthritis, right knee Plan of Treatment Future Appointment(s):06/08/2019 9:30 am - Neville Downey MD, [facility] at [facility] - Neville Downey MD, FACSK26.1 Acute duodenal ulcer with perforationFollow up:1 week
--- OUTSIDE RECORDS SUMMARY | 2019-06-14 17:53 | XMS REPORT | Continuity of Care Document ---
:1960 External Reference #:[id number] Author Name Fallon Burger Care Team Providers Name Role Phone Davidson Contreras MD Primary Care Physician Unavailable Payers Date Identification Numbers Payment Provider Subscriber Policy Number: [id number] [place] Kevin Beck PayID: [id number] [address] [address] [place] [address] Problems Active Problems Provider Date Localized, primary osteoarthritis Jean Oliver MD Onset: 01/07/2019 Knee stiff Jean Oliver MD Onset: 05/06/2019 Aftercare following joint replacement Jean Oliver MD Onset: 2018 surgery Family History Date Family Member(s) Observation Comments General No Current Problems Father due to Emphysema () Social History Type Date Description Comments Sex Unknown Marital Status 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 ETOH Use Denies alcohol use Tobacco Use Start: Unknown Patient has never smoked Recreational Drug Use Former Drug User quit Marijuana 2017 Smoking Status Reviewed: 06/08/19 Patient has never smoked Exercise Type/Frequency Exercises [...] 8 Hour Take one tab by 60tabs [facility] 04/20/2019 - 650mg Tablets ER mouth q4h MD Melody Unknown Tramadol HCL 1 tablet by mouth 30tabs [facility] 04/16/2019 - 50mg Tablets every 6 hours as MD Melody Unknown needed pain Medrol take as directed 21tabs [facility] 04/13/2019 - 4mg Tablets per dosepak MD Melody Unknown instructions Oxycodone-Acetaminophen 1-2 tas by mouth 60tabs [facility] 04/13/2019 - 5-325mg every 4-6 hours as MD Melody Unknown Tablets needed for post-op pain. Naproxen 1 by mouth twice a 60tabs [facility] 03/16/2019 - 500mg Tablets day as needed pain. MD Melody Unknown Do not take while on the medrol dosepak Colace 1 tab every 12 90caps [facility] 01/28/2019 - 100mg Capsules hours as needed for MD Melody 03/15/2019 constipation Eliquis 1 tab by mouth 60tabs [facility] 01/28/2019 - 2.5mg Tablets every 12 hours for MD Melody 03/15/2019 30 days Oxycodone-Acetaminophen 1 by mouth every 60tabs [facility] 01/28/2019 - 5-325mg 4-6 hours as [...] Injection Vital Signs Date Vital Result Comment 06/08/2019 9:46am Height 69 inches 5'9" Weight [...] Test Result H/L Range Note Xray 03/16/2019 [facility] Knee 3 Views <pending> [address] [place] [address] [phone] CBC Auto Diff 01/15/2019 [facility] White Blood 7.1 10^3/uL N 3.5-10.[address] [place] [address] [phone] Red Blood Count 4.99 10^6/uL N 4.00-5.40 [...] Blood Cells % 0.1 Urinalysis Profile 01/15/2019 [facility] Urine Color Yellow [address] [place] [address] [phone] Urine Appearance Cloudy Urine Specific M[place]at 1.013 N 1.010-1.030 Urine pH 5.0 N 5-9 Urine Urobilinogen Negative Negative Urine Ketones Negative Negative Urine Protein Negative Negative Urine Leukocytes Negative Negative Urine Blood Negative Negative Urine Nitrite Negative Negative Urine Bilirubin Negative Negative Urine Glucose Negative Negative Comp Metabolic Panel 01/15/2019 [facility] Sodium 139 mmol/L N 135-145 [address] [place] [address] [phone] Potassium 4.3 mmol/L N 3.5-5.0 Chloride 106 [...] >60 Egfr 115.5 >60 1 Inr/Protime 01/15/2019 [facility] Inr 1.02 N 0.77-1.[address] [place] [address] [phone] Laboratory test 01/15/2019 [facility] Partial 42.8 seconds High 26.0-36.[address] [place] [address] Time PTT [phone] Type & Screen 01/15/2019 [facility] Patient O Positive [address] Blood Type [place], [place] [id number] [phone] Antibody Screen NEGATIVE Urine Culture And 01/15/2019 [facility] Urine Culture SEE RESULT [address] [place] [address] [phone] 1 Because ethnic data is not always [...] [address]: Jean Oliver MD Acct: [id number] Unit: [id number] AGE: 58 Location: [facility] Re01/15/19 SEX: M Status: REG REF SPEC: [id number] DELIA: 01/15/19-[address]: Jean Oliver MD REQ: [id number] RECD: 01/15/19 STATUS: JESSICA WHIPPLE DR: Davidson Contreras MD _ SOURCE: URINE SPDESC: ORDERED: Urine Culture QUERIES: Urine Source: Random Procedure Result Reported Site Urine Culture Final 01/16/19- 821 ML No Growth (<1,000 CFU/mL) * ML - Main Lab . END OF REPORT DEPARTMENT OF PATHOLOGY, [address] [place] [address] Yuan Zendejas M.D. Director [facility] # [id number] Procedures Date Code Description Status 04/14/2019 48449 Manipulation Knee Under Generl Anesth. Incl Application Completed Traction 04/14/2019 69988 Manipulation Knee Under Generl Anesth. Incl Application Completed Traction 03/16/2019 42187 Inject/Drain Joint/Bursa Major W/O US Completed 01/27/2019 40193 TKR Total Knee Replacement Completed 01/27/2019 57997 TKR Total Knee Replacement Completed 01/15/2019 32861 EKG, Interpretation Only Completed Encounters Type Date Location Provider Dx Diagnosis Office Visit 05/15/2019 Surgical Neville Downey, K26.1 Acute duodenal 7:00a [facility] ulcer with perforation Office Visit 01/07/2019 Orthopedic Jean Ch M17.11 Unilateral primary 8:[facility] MD osteoarthritis, right knee
[2019-06-14] MEDS ORDERED: Pantoprazole IV* 40 MG IV SCH (18:00)
[2019-06-14] MEDS: Ondansetron INJ* 2 MG/ML VIAL IV PRN (18:18)
[2019-06-14] MEDS: NS 0.9% 1000 ML** 1,000 ML IV SCH (18:36)
[2019-06-14] MEDS ORDERED: Metoclopramide IV* 5 MG/ML 2 ML VIAL IV PRN (20:56)
[2019-06-14] MEDS ORDERED: Metoclopramide IV* 5 MG/ML 2 ML VIAL ONE (21:02)
--- NOTE | 2019-06-14 21:02 | HP ---
CC: Dr. Davidson Contreras, [facility] * UPDATED HISTORY AND PHYSICAL: DATE OF ADMISSION: 06/14/19 ATTENDING SURGEON: Dr. Demarco Thakkar.* (DICTATED BY ALEM JASON) CHIEF COMPLAINT: Nausea, vomiting, and diarrhea; dehydration. HISTORY OF PRESENT ILLNESS: This is a 59-year-old generally healthy male who was admitted on 05/15/19 and taken to the operating room for repair of the perforated duodenal ulcer by Dr. Downey. Surgery included pyloric exclusion and a gastrojejunostomy. The patient was treated with perioperative antibiotics. He was readmitted from 05/22/19 to 05/28/19 for a fever during which time, he improved significantly on cefepime and Flagyl. He was ultimately discharged on 05/28/19 on Levaquin and Flagyl. This he finished sometime last week. He had been seen in the office by Dr. Downey 06/08/19, at which time the remaining BENNIE drain was removed. Up to that point, he had been doing well with no signs or symptoms of infection and no pain. He had been tolerating diet well. Subsequent to the drain removal and beginning on 06/11/19, he did experience some abdominal pain and has been intermittently vomiting since then including ongoing vomiting every 2 hours last evening. He did, however, tolerate approximately 20 ounces of apple juice this morning. He was seen in the office by myself around noon today at which time he did not have any significant complaint of abdominal pain, but appeared "washed out. " In addition, he had also been experiencing multiple episodes of clear watery stools. He denies fever or chills. His case was discussed with Dr. Begum and subsequently with Dr. Thakkar (Dr. Downey is away). Decision was made to send him for lab work and CT scan of the abdomen and pelvis with IV and oral contrast as well as receive IV fluids. He did receive 1 L of normal saline in the holding area for CT. Lab work was notable for a white blood cell count of 17,600 with a relatively normal differential, hemoglobin 12.6, hematocrit 38%, platelet count 613,000. Chemistry is notable for sodium of 132, chloride of 89, glucose of 172 , BUN and creatinine normal. CRP 93 (down from most recent 128 on 05/26/19). His liver function tests are essentially normal as is a serum lipase. CT scan of the abdomen and pelvis with IV contrast only (he did not tolerate the oral contrast) shows an area of extraluminal air adjacent to and anterior to the red devil duodenum, which is increased from the prior study. There is a small amount of fluid adjacent to the duodenum measuring up to 3.1 cm, which is also increased from prior study of 05/22/19. Finally, there is a perinephric loculated fluid collection measuring 7.4 x 2.9 cm, which is also slightly increased since prior study. PAST MEDICAL HISTORY: Primarily arthritis of the knees. PAST SURGICAL HISTORY: As noted above per the HPI. In addition, total right knee arthroplasty recently. MEDICATIONS: At the time of current admission, omeprazole 40 mg once daily. DRUG ALLERGIES: Possible ZOSYN (rash). FAMILY HISTORY: Unchanged. SOCIAL HISTORY: Unchanged. REVIEW OF SYSTEMS: General: As above per HPI, no additions. Cardiovascular: No history of hypertension, chest pain, or cardiovascular disease. Respiratory : No cough or shortness of breath. He does have some hoarseness, which had improved for a period of time and now is worse since the vomiting episodes. GI : As above per HPI, no additions. : No symptoms reported. PHYSICAL EXAMINATION GENERAL: Well nourished, but somewhat washed out appearing male, in no acute distress. VITAL SIGNS: In the office, he was afebrile with stable vital signs. These have not been repeated yet at the hospital (the patient was also seen and examined with Dr. Thakkar in the CT holding area). HEENT: Mucous membranes dry. LUNGS: Clear to auscultation. No rales or wheezes. HEART: Regular rate and rhythm. No murmur noted. ABDOMEN: Healing upper midline incision. He does have some diastasis recti. There is a dressing in the right upper quadrant from recent BENNIE drain removal with a small dime sized area of yellow green drainage. The wound is otherwise clean and without tenderness or additional expressible drainage. No tenderness to palpation. No palpable masses or organomegaly. GENITALIA: Not done. EXTREMITIES: No edema. RECTAL: Not done. DIAGNOSTIC STUDIES/LAB DATA: Laboratory: White blood cell count and chemistries as noted above. Imaging: CT with IV contrast as noted above. IMPRESSION: Vomiting and diarrhea with dehydration status post repair of perforated duodenal ulcer with pyloric exclusion and gastrojejunostomy. It is difficult to correlate the CT findings with his clinical history and exam; however, he could also have been having some symptoms of bile gastritis. Decision was made to admit the patient for IV hydration and to perform an upper GI study in the morning to assess the gastrojejunostomy. At the present time, we will defer antibiotic therapy as the patient is afebrile, normotensive, and non-tachycardic. PLAN: Discussed directly with the patient and his and they are in agreement. ALEM JASON [id number]/[facility] #: [id number] ANNE
[2019-06-14] MEDS: Sucralfate SUSP 1 GM/10 ml 10 ML UDC PO SCH (21:05)
[2019-06-15] MEDS: NS 0.9% 1000 ML** 1,000 ML IV SCH ×3 (02:54→21:09)
[2019-06-15] MEDS: Ondansetron INJ* 2 MG/ML VIAL IV PRN (02:59)
[2019-06-15 06:24] LABS: ABS Lymphocytes 1.3 10^3/ul (1.0-4.8); ABS Monocytes 1.4 10^3/ul (0-0.8); Eosinophil % 0.1 %; Hematocrit 33 % (42-52); Hemoglobin 11.3 g/dL (14.0-18.0); Lymphocyte % 7.5 %; Mean Corpuscular HGB Conc 34 g/dL (31-36); Mean Corpuscular Hemoglobin 29 pg (27-31); Mean Corpuscular Volume 85 fL (80-94); Platelet Count 454 10^3/uL (150-450); Red Blood Count 3.94 10^6 /uL (4.18-5.48); Red Cell Distribution Width 14 % (10-15); White Blood Count 16.7 10^3/uL (3.5-10.8)
[2019-06-15 06:49] LABS: BUN/Creatinine Ratio 15.7 (8-20); C Reactive Protein 51.37 mg/L (<8.01); Calcium 8.4 mg/dL (8.6-10.3); EGFR Non-African American 166.9 (>60); Potassium 2.8 mmol/L (3.5-5.0)
[2019-06-15] MEDS: KCL premix 10MEQ/50 ML x 3 RUNS IV SCH ×3 (09:59→14:49)
[2019-06-15] MEDS: Pantoprazole TAB * 40 MG TAB PO SCH (10:56)
[2019-06-15] MEDS: Sucralfate SUSP 1 GM/10 ml 10 ML UDC PO SCH ×4 (10:56→20:58)
--- NOTE | 2019-06-15 11:07 | PN ---
Progress Note - Progress Note Date of Service: 06/15/19 Note: S: would like to try to drink/maybe eat; not much abd pain; still having diarrhea (C diff pos; no Tx initiated yet) O: Vital Signs - 8 hr 06/15/19 06/15/19 06/15/19 03:17 03:23 07:53 Temperature 98.6 F 99.2 F Pulse Rate 108 103 104 Respiratory 17 17 Rate Blood Pressure 135/72 133/79 (mmHg) O2 Sat by Pulse 93 95 Oximetry 06/15/19 08:00 Temperature Pulse Rate Respiratory 17 Rate Blood Pressure (mmHg) O2 Sat by Pulse Oximetry Intake and Output Last 24 Hours 06/13/19 06/14/19 06/15/19 06/16/19 06:59 06:59 06:59 06:59 Intake Total 2767 Output Total 0 Balance 2767 Weight 165 lb Intake: IV Fluids 2767 NS 2755 Oral 0 Output: Urine 0 Other: Estimated Void Medium Medium # Bowel Movements 3 Estimated Stool Amount Medium # Voids 1 2 Gen: appears comfortable, NAD Heart: (exam by PA student) reg Lungs: (" " ) clear to bases; no rales or wheezes Abd: mild distension? +BS; small spot of green/yellow drainage from BENNIE site; no erythema or add'l expressible drainage. Soft; no tenderness to palp throughout abd Labs: Laboratory Tests 06/15/19 06/15/19 05:44 05:44 WBC 16.7 H Hgb 11.3 L Potassium 2.8 L Glucose 135 H C-Reactive Protein 51.37 H SOURCE: STOOL SPDESC: ORDERED: C. diff PCR COMMENTS: Verbal to [id number] by FELTON at 2114 on 06/14/19. Results read back accurately. Procedure Result Reported Site Stool Specimen Description Final 06/14/19- 2030 ML Stool Color Brown Stool Form Nonformed Stool Consistency Liquid C. difficile PCR Final 06/14/19- 2114 ML Organism 1 027 Presumptive NEGATIVE Organism 2 Toxigenic C.diff POSITIVE * ML - Main Lab . UGI: INDICATION: Status post repair of a perforated duodenal ulcer, gastrojejunostomy. COMPARISON: Comparison is made with a prior upper GI series from May 25, [address] of the abdomen and pelvis from June 14, 2019. Technique: A Gastrografin upper GI series examination was performed. Approximately 2.1 minutes of intermittent fluoroscopic guidance were used during the exam. Findings: On the initial punchboard stuffer image there are scattered air-fluid levels within nondistended small and large bowel suggestive of a paralytic ileus. The patient was nauseated and only able to drink a limited amount of contrast. The esophageal peristalsis appeared normal. No hiatal hernia or gastroesophageal reflux was noted. The stomach is nondistended. The patient appears to be status post surgical closure of the gastric antrum and a gastrojejunostomy. The gastrojejunostomy appears patent. There is no evidence for intraperitoneal leak of contrast. IMPRESSION: 1. PATENT GASTROJEJUNOSTOMY, THERE IS NO EVIDENCE FOR INTRAPERITONEAL LEAK OF CONTRAST. 2. SCATTERED AIR-FLUID LEVELS WITHIN THE SMALL LARGE BOWEL SUGGESTING THE POSSIBILITY OF A PARALYTIC ILEUS. 3. LIMITED STUDY. A: 1. nausea; dehydration (poss 2/2 C diff) 2. C diff colitis (awaiting input from Dr. Levy) 3. s/p gastrojejunostomy, repair perf'd duodenal ulcer w/ areas of increased air around duodenum and organizing fluid around R kidney, but clinically stable other than 1. and 2. above 4. hypokalemia P: full liq diet as sherrie replete K po vanco for C diff? (had recent course of oral Flagyl) consider repeat CT 1 wk (will d/w Dr. Thakkar)
--- NOTE | 2019-06-15 16:41 | CONS ---
CONSULTATION REPORT: DATE OF CONSULT: 06/15/19 REQUESTING PHYSICIAN: Dr. Thakkar. CONSULTING SERVICE: Infectious disease. REASON FOR CONSULTATION: C. difficile colitis. IMPRESSION: 1. Frequent liquid stools, positive Clostridium difficile PCR. 2. Fluid collection adjacent to the right kidney 7.5 x 2.9 cm, partially loculated, question early abscess in the setting of recent intraabdominal surgery and postoperative fever. 3. Perforated duodenal ulcer, status post laparotomy, complicated by postoperative fever and intraabdominal collection. RECOMMENDATIONS: 1. Vancomycin 125 mg by mouth 4 times a day. We will follow his symptoms here and see if all of his vomiting as well as diarrhea resolve with therapy. 2. Interventional radiology evaluation for aspiration of the collection adjacent to the right kidney for culture and we will hold on antibiotics at this point, awaiting those results. HISTORY OF PRESENT ILLNESS: This is a 59-year-old man who had a perforated duodenal ulcer and then exploratory laparotomy on 05/15/19. He initially did well and then returned to the hospital with fever, a bile leak, and some intraabdominal fluid collections. He had a drain that was removed last week. The drain area has opened back up again and is draining occasionally. He then had about a few days of nausea, vomiting, and liquid stools. He came back to the hospital. CT scan showed fluid collection on the right. A C. difficile PCR is positive. His white count was 16,000. He has been afebrile here. Today , he denies abdominal pain, but continues to have liquid stools. PAST MEDICAL HISTORY: 1. Perforated duodenal ulcer, status post gastrojejunostomy and pyloric exclusion. 2. Right knee arthroplasty in 2019. 3. Osteoarthritis. MEDICATIONS: 1. Tylenol. 2. Metoclopramide. 3. Zofran. 4. Pantoprazole. 5. Sucralfate. ALLERGIES: ZOSYN caused rash. SOCIAL HISTORY: He lives in [place] with his . No sick contacts. FAMILY HISTORY: No recurrent infections. REVIEW OF SYSTEMS: All negative, except as noted above to a 12-point review. PHYSICAL EXAMINATION: Vital Signs: Temperature 36.4, heart rate 100, respiratory rate 18, blood pressure 143/80, oxygen saturation 97% on room air. In general, he is awake, not in distress. Neurologic: He is oriented x3. Follows all commands. HEENT: There is no conjunctival hemorrhage. Oropharynx without lesions. Neck is supple without mass. Heart is regular and tachycardic without murmurs. Lungs are clear to auscultation bilaterally. Abdomen: Soft, mildly distended. There are bowel sounds present. Right of midline drain site is open without any surrounding erythema. Skin: There are no rashes or splinter hemorrhages. Musculoskeletal: There is no spine tenderness to palpation or joint synovitis. DIAGNOSTIC STUDIES/LAB DATA: Creatinine 0.5. White blood cell count 16, hemoglobin 11, platelets 454. Please see impressions and recommendations outlined above. I discussed this with Dr. Thakkar. Thanks for asking me to see Mr. Cardenas in consultation. [id number]/CPS #: [id number] ANNE
[2019-06-15] MEDS: Vancomycin CAP* 125 MG CAP PO SCH ×2 (18:14→21:06)
[2019-06-15 18:20] LABS: BUN/Creatinine Ratio 14.3 (8-20); Calcium 8.2 mg/dL (8.6-10.3); EGFR African American 211.5 (>60); EGFR Non-African American 174.8 (>60); Magnesium 1.3 mg/dL (1.9-2.7)
[2019-06-15] MEDS ORDERED: Magnesium Sulfate 2 GM IV* 2 GM/50 ML BAG IVPB ONE (18:31)
[2019-06-15] MEDS: KCL 10 MEQ/50 ML IVPREMIX* 10 MEQ/50 ML BAG IV SCH ×2 (20:57→22:46)
[2019-06-16] MEDS: KCL 10 MEQ/50 ML IVPREMIX* 10 MEQ/50 ML BAG IV SCH ×4 (00:59→20:35)
[2019-06-16] MEDS: NS 0.9% 1000 ML** 1,000 ML IV SCH ×2 (05:18→18:35)
[2019-06-16 06:30] LABS: Hematocrit 33 % (42-52); Hemoglobin 10.7 g/dL (14.0-18.0); Mean Corpuscular HGB Conc 33 g/dL (31-36); Mean Corpuscular Hemoglobin 28 pg (27-31); Mean Corpuscular Volume 86 fL (80-94); Mean Platelet Volume 7.3 fL (7.4-10.4); Platelet Count 373 10^3/uL (150-450); Red Cell Distribution Width 14 % (10-15); White Blood Count 15.2 10^3/uL (3.5-10.8)
[2019-06-16 07:37] LABS: Calcium 7.9 mg/dL (8.6-10.3); Potassium 3.2 mmol/L (3.5-5.0)
[2019-06-16 07:43] LABS: EGFR African American 206.7 (>60); EGFR Non-African American 170.8 (>60)
--- NOTE | 2019-06-16 08:44 | PN ---
Progress Note - Progress Note Date of Service: 06/16/19 SOAP: Subjective: Mr. Cardenas denies abdominal pain, chest pain, and shortness of breath. He reports having three episodes of diarrhea last night, he noted the character of the stool was more solid than the day before. He has had some nausea and vomited once overnight, no star blood or black contents. He denies cramping. His appetite is intermittently better, he tolerated full liquids well yesterday. He is ambulating frequently. Dressing changed at drain site. Acetaminophen (Tylenol Tab*) 650 mg PO Q4H PRN PRN Reason: mild pain or fever Sodium Chloride (Ns 0.9% 1000 Ml) 1,000 mls @ 125 mls/hr IV PER RATE [facility] Last Admin: 06/16/19 05:18 Dose: 125 mls/hr Metoclopramide HCl (Reglan Iv*) 10 mg IV Q6H PRN PRN Reason: NAUSEA Ondansetron HCl (Zofran Inj*) 4 mg IV Q6H PRN PRN Reason: NAUSEA Last Admin: 06/15/19 02:59 Dose: 4 mg Pantoprazole Sodium (Protonix Tab*) 40 mg PO DAILY [facility] Last Admin: 06/15/19 10:56 Dose: Not Given Sucralfate (Sucralfate Susp) 1 gm PO QID [facility] Last Admin: 06/15/19 20:58 Dose: 1 gm Vancomycin HCl (Vancomycin Cap*) 125 mg PO QID [facility] Last Admin: 06/15/19 21:06 Dose: 125 mg Objective: Vital Signs - 12 hr Temp Pulse Resp BP Pulse Ox 06/16/19 03:59 98.5 F 96 15 125/60 96 06/16/19 00:15 97.9 F 92 16 124/58 100 Intake & Output 06/14/19 06/15/19 06/16/19 06/17/19 06:59 06:59 06:59 06:59 Intake Total 2767 3401 Output Total 0 250 Balance 2767 3151 Weight 165 lb Intake: IV Fluids 2767 2141 NS 2755 1880 magnesium 50 potassium 211 IVPB 50 potassium 50 Oral 0 1210 Output: Urine 0 250 Other: Estimated Void Medium Large # Bowel Movements 0 Estimated Stool Amount Small # Voids 1 3 Laboratory Tests 06/15/19 06/15/19 06/15/19 05:44 05:44 17:49 WBC 16.7 H Hgb 11.3 L Hct 33 L Potassium 2.8 L 3.0 L BUN 8 7 Creatinine 0.51 L 0.49 L Calcium 8.4 L 8.2 L Magnesium 1.3 L 06/16/19 06/16/19 06:15 06:15 WBC 15.2 H Hgb 10.7 L Hct 33 L Potassium 3.2 L BUN 5 L Creatinine 0.50 L Calcium 7.9 L Magnesium Microbiology 06/14/19 20:10 Stool Gross Appearance - Final Stool C. difficile DNA Amplification - Final 027 Presumptive NEGATIVE Toxigenic C.diff POSITIVE Exam: General: comfortable lying in bed, no acute distress Heart: regular rate and rhythm, no murmurs appreciated Lungs: symmetrical chest expansion, clear to auscultation bilaterally, no increased effort of breathing Abdomen: round, somewhat distended. BENNIE drain site with small amount of purulent discharge. Normoactive bowel sounds present. Non-tender to palpation. Extremities: no rashes or lesions Assessment: 1. c. diff colitis 2. nausea/ dehydration 3. hypokalemia 4. status post gastrojujenostomy repair of perforated duodenal ulcer. increased air around duodenum and fluid collection near right kidney on CT. stable, small improvement Plan: Continue full liquid diet as tolerated. Continue PO vancomycin for c. difficile.
[2019-06-16] MEDS: Sucralfate SUSP 1 GM/10 ml 10 ML UDC PO SCH ×4 (08:58→23:01)
[2019-06-16] MEDS: Pantoprazole TAB * 40 MG TAB PO SCH (08:58)
[2019-06-16] MEDS: Vancomycin CAP* 125 MG CAP PO SCH ×4 (08:58→23:01)
[2019-06-16 09:09] LABS: ABS Lymphocytes 1.1 10^3/ul (1.0-4.8); ABS Monocytes 1.3 10^3/ul (0-0.8); ABS Neutrophils 12.7 10^3/ul (1.5-7.7); Eosinophil % 0.2 %; Lymphocyte % 7.2 %
[2019-06-16 10:22] LABS: Magnesium 1.7 mg/dL (1.9-2.7)
--- NOTE | 2019-06-16 10:28 | PN ---
Progress Note - Progress Note Date of Service: 06/16/19 SOAP: Subjective:no abdominal pain,hungry for yogurt,applesauce,had 3 loose stools yesterday and 1 this am [] Objective: Vital Signs Temp 98.4 F 06/16/19 08:59 Pulse 97 06/16/19 08:59 Resp 16 06/16/19 08:59 BP 122/84 06/16/19 08:59 Pulse Ox 97 06/16/19 08:59 Intake & Output 06/15/19 06/16/19 06/16/19 18:59 06:59 18:59 Intake Total 1880 1521 360 Output Total 250 Balance 1880 1271 360 Intake: IV Fluids 980 1161 NS 980 900 magnesium 50 potassium 211 IVPB 50 potassium 50 Oral 850 360 360 Output: Urine 250 Other: Estimated Void Medium Large # Bowel Movements 1 0 Estimated Stool Amount Medium Small # Voids 1 3 Laboratory Results - last 24 hr 06/15/19 06/16/19 06/16/19 17:49 06:15 06:15 WBC 15.2 H RBC 3.80 L Hgb 10.7 L Hct 33 L MCV 86 MCH 28 MCHC 33 RDW 14 Plt Count 373 MPV 7.3 L Neut % (Auto) 83.7 Lymph % (Auto) 7.2 [place] % (Auto) 8.7 Eos % (Auto) 0.2 Baso % (Auto) 0.2 Absolute Neuts (auto) 12.7 H Absolute Lymphs (auto) 1.1 Absolute Monos (auto) 1.3 H Absolute Eos (auto) 0.0 Absolute Basos (auto) 0.0 Absolute Nucleated RBC 0.0 Nucleated RBC % 0.0 Sodium 133 L 133 L Potassium 3.0 L 3.2 L Chloride 100 L 102 Carbon Dioxide 24 21 L Anion Gap 9 10 BUN 7 5 L Creatinine 0.49 L 0.50 L Est GFR ( Amer) 211.5 206.7 Est GFR (Non-Af Amer) 174.8 170.8 BUN/Creatinine Ratio 14.3 10.0 Glucose 145 H 169 H Calcium 8.2 L 7.9 L Magnesium 1.3 L lungs:clear bilat;abd:mild distention,+BS,soft,nontender throughout;ext:no edema [] Assessment:cdiff colitis;s/p gastrojej and repair perf'd duodenal ulcer,areas of increased air around duodenum and perinephric fluid;hypokalemia and hypomagnesia [] Plan:on po Vanco per ID replete lytes CT guided aspiration and culture of perinephric fluid today add yogurt and applesauce to diet []
[2019-06-16] MEDS ORDERED: Magnesium Sulfate 2 GM IV* 2 GM/50 ML BAG IVPB ONE (10:29)
[2019-06-16] MEDS ORDERED: Potassium Chlor TAB* 20 MEQ TAB.ER PO ONE (12:50)
[2019-06-16] MEDS ORDERED: fentaNYL* 50 MCG/ML 2 ML VIAL (100 MCG VIAL) ONE (16:47)
[2019-06-16] MEDS ORDERED: KCL 10 MEQ/50 ML IVPREMIX* 10 MEQ/50 ML BAG ONE (18:33)
[2019-06-16] MEDS ORDERED: HYDROmorphone INJ1* 1 MG/ML SYRINGE ONE (18:52)
[2019-06-16] MEDS ORDERED: ZOSYN 3.375 GM Q6H - Intermittant 30 min Infusion IVPB SCH ×2 (20:30)
[2019-06-16] MEDS ORDERED: NS 0.9% 1000 ML** 1,000 ML IV ONE ×2 (20:55→21:42)
[2019-06-16] MEDS: KCL 20 MEQ/100 ML IVPREMIX* 20 MEQ/100 ML BAG IV SCH ×2 (21:00→23:35)
--- NOTE | 2019-06-16 21:39 | PN ---
Progress Note - Progress Note Date of Service: 06/16/19 Note: Pt developed sinus tachy, low grade fever and diffuse abd pain worse after R flank drain was placed to perinephric abscess today in PM. Drain is draining lot of purulent liquid (approx 150 ml so far). Pt also has a small open area draining puss in the anterior mid abd right to umbilicus where drain was pulled out from last week. On abd exam : soft, diffusely tender, no rebound, no guarding, BS hypoactive. otherwise exam is unremarkable with clean lungs b/l, CV: RRR, tachy, no murmur, pt is AAOx3 in NAD, skin well perfused, dry, peripheral pulses WNL in LE's Pt as examined in ICU, case d/w DR. uTbbs. Pt is currently septic. Blood cx will be obtained. Lactic acid pending. Pt will receive IVF bolus and IV antibiotics: Cefepime and Flagyl-as d/w DR. Kay. Pt had an allergic reaction to Zosyn 2 weeks ago
[2019-06-16 21:47] LABS: ABS Lymphocytes 0.6 10^3/ul (1.0-4.8); ABS Neutrophils 12.8 10^3/ul (1.5-7.7); Hematocrit 33 % (42-52); Hemoglobin 10.9 g/dL (14.0-18.0); Lymphocyte % 3.9 %; Mean Corpuscular HGB Conc 33 g/dL (31-36); Mean Corpuscular Hemoglobin 28 pg (27-31); Mean Corpuscular Volume 85 fL (80-94); Mean Platelet Volume 6.8 fL (7.4-10.4); Platelet Count 447 10^3/uL (150-450); Red Blood Count 3.86 10^6 /uL (4.18-5.48); Red Cell Distribution Width 14 % (10-15); White Blood Count 14.4 10^3/uL (3.5-10.8)
[2019-06-16] MEDS: Cefepime* 2 GM in Dextrose 50mL Q12H (Duplex) IV SCH (22:01)
[2019-06-16 22:05] LABS: BUN/Creatinine Ratio 11.1 (8-20); Calcium 7.8 mg/dL (8.6-10.3); EGFR African American 233.4 (>60); EGFR Non-African American 192.9 (>60)
[2019-06-16] MEDS: HYDROmorphone INJ1* 1 MG/ML SYRINGE IV PRN (22:14)
[2019-06-16] MEDS: metroNIDAZOLE IV 500 MG/100ML* 500 MG/100 ML BAG IVPB SCH (22:37)
[2019-06-16] MEDS: Morphine INJ* 2 MG/ML 1 ML SYRINGE (TWO MG - NEW SYRINGE VERSION) IV PRN (23:38)
[2019-06-17] MEDS: HYDROmorphone INJ1* 1 MG/ML SYRINGE IV PRN ×3 (01:18→22:07)
[2019-06-17] MEDS: KCL 20 MEQ/100 ML IVPREMIX* 20 MEQ/100 ML BAG IV SCH ×2 (01:49→03:54)
[2019-06-17] MEDS: NS 0.9% 1000 ML** 1,000 ML IV SCH ×2 (03:24→10:09)
[2019-06-17] MEDS: metroNIDAZOLE IV 500 MG/100ML* 500 MG/100 ML BAG IVPB SCH ×3 (05:28→20:56)
[2019-06-17] MEDS: Sucralfate SUSP 1 GM/10 ml 10 ML UDC PO SCH ×4 (05:30→22:07)
[2019-06-17] MEDS: Morphine INJ* 2 MG/ML 1 ML SYRINGE (TWO MG - NEW SYRINGE VERSION) IV PRN ×4 (07:53→19:43)
[2019-06-17 09:44] LABS: BUN/Creatinine Ratio 10.4 (8-20); Calcium 7.7 mg/dL (8.6-10.3); EGFR African American 216.6 (>60); Magnesium 1.7 mg/dL (1.9-2.7); Potassium 3.6 mmol/L (3.5-5.0)
[2019-06-17] MEDS: Pantoprazole TAB * 40 MG TAB PO SCH (10:01)
[2019-06-17] MEDS: Vancomycin CAP* 125 MG CAP PO SCH ×4 (10:01→20:53)
[2019-06-17] MEDS: Cefepime* 2 GM in Dextrose 50mL Q12H (Duplex) IV SCH ×2 (10:01→20:53)
--- NOTE | 2019-06-17 10:24 | PN ---
Progress Note - Progress Note Date of Service: 06/17/19 SOAP: Subjective: Events of last night noted and reviewed with nursing Successful drainage of abdominal abscess and developed sepsis last night Transferred to ICU--fluid, cultures, IV abx started He feels much better this morning, main complaint is pain at drain site Would like to eat something Objective: Temp Pulse Resp BP Pulse Ox 98.6 F 101 32 114/70 97 06/17/19 07:26 06/17/19 07:01 06/17/19 10:01 06/17/19 07:00 06/17/19 07:01 Intake & Output 06/15/19 06/16/19 06/17/19 06/18/19 06:59 06:59 06:59 06:59 Intake Total 2767 3401 4231 Output Total 0 250 630 500 Balance 2767 3151 3601 -500 Weight 165 lb 175 lb 12.8 oz Intake: IV Fluids 2767 2141 3305 NS 2755 1880 3305 magnesium 50 potassium 211 IVPB 50 566 ABX - CEFEPIME 100 ABX - FLAGYL 73 potassium 50 393 Oral 0 1210 360 Output: Pigtail Drain 130 Urine 0 250 500 500 Other: Estimated Void Medium Large # Bowel Movements 0 Estimated Stool Amount Small # Voids 1 3 PEX: Awake and alert, comfortable Lungs are clear, decreased breath sounds at the bases Cor is RRR and tachycardic Abd is soft and slightly distended. Few bowel sounds are present. Right flank drain in place with thick yellow purulent fluid in bag. Pain at drain site, abdomen without tenderness. Old drain site anterior abdomen with some thinner yellow fluid drainage. Ext without edema Labs pending Prelim cultures noted Assessment: S/P repair of perforated duodenal ulcer 05/12 with abdominal abscess s/p drainage Sepsis-improving C. diff colitis Plan: IV abx, ID consult, await cultures Start po-full liquids PO vanco for colitis OOB Drainage All discussed with patient and at bedside this morning.
[2019-06-17] MEDS ORDERED: Magnesium Sulfate 2 GM IV* 2 GM/50 ML BAG IVPB ONE (10:25)
[2019-06-17] MEDS ORDERED: NS 0.9% 1000 ML** 1,000 ML IV SCH (10:27)
[2019-06-17 11:43] LABS: Hematocrit 27 % (42-52); Hemoglobin 8.9 g/dL (14.0-18.0); Mean Corpuscular HGB Conc 34 g/dL (31-36); Mean Corpuscular Hemoglobin 29 pg (27-31); Mean Corpuscular Volume 86 fL (80-94); Mean Platelet Volume 7.3 fL (7.4-10.4); Platelet Count 299 10^3/uL (150-450); Red Blood Count 3.09 10^6 /uL (4.18-5.48); Red Cell Distribution Width 14 % (10-15); White Blood Count 9.5 10^3/uL (3.5-10.8)
[2019-06-17 11:49] LABS: Albumin 2.3 g/dL (3.2-5.2); Albumin/Globulin Ratio 0.8 (1-3); Globulin 2.8 g/dL (2-4); Total Bilirubin 0.9 mg/dL (0.2-1.0); Total Protein 5.1 g/dL (6.4-8.9)
--- NOTE | 2019-06-17 15:33 | PN ---
Progress Note - Progress Note Date of Service: 06/17/19 SOAP: Subjective: CC: leukocytosis HPI: 59 year old man with repair of perforated duodenal ulcer complicated by fever and now diarrhea, loculated collection on CT adjacent to right kidney. He had an US guided drain placed yesterday. Subsequent right sided pain and tachycardia. Today feels better, pain decreased and feels hungry for the first time. BM today was soft instead of liquid. Objective: Vital Signs Temp 37.0 C 06/17/19 07:26 Pulse 116 06/17/19 14:02 Resp 36 06/17/19 14:02 BP 134/71 06/17/19 14:00 Pulse Ox 93 06/17/19 14:02 Intake & Output 06/16/19 06/17/19 06/17/19 18:59 06:59 18:59 Intake Total 360 3871 219 Output Total 630 500 Balance 360 3241 -281 Weight 165 lb 175 lb 12.8 oz Intake: IV Fluids 3305 NS 3305 IVPB 566 219 ABX - CEFEPIME 100 ABX - FLAGYL 73 96 magnesium 123 potassium 393 Oral 360 Output: Pigtail Drain 130 Urine 500 500 Gen:awake, no distress HEENT: no thrush Heart:RRR no murmur Lungs:CTA BL Abd:+BS non tender, soft, right sided drain with purulent fluid, midline wound with no erythema Skin: no rash Laboratory Results - last 24 hr 06/16/19 06/16/19 06/16/19 21:35 21:35 21:35 WBC 14.4 H RBC 3.86 L Hgb 10.9 L Hct 33 L MCV 85 MCH 28 MCHC 33 RDW 14 Plt Count 447 MPV 6.8 L Neut % (Auto) 89.0 Lymph % (Auto) 3.9 [place] % (Auto) 6.9 Eos % (Auto) 0.0 Baso % (Auto) 0.2 Absolute Neuts (auto) 12.8 H Absolute Lymphs (auto) 0.6 L Absolute Monos (auto) 1.0 H Absolute Eos (auto) 0.0 Absolute Basos (auto) 0.0 Absolute Nucleated RBC 0.0 Nucleated RBC % 0.0 Sodium 132 L Potassium 3.0 L Chloride 101 Carbon Dioxide 23 Anion Gap 8 BUN 5 L Creatinine 0.45 L Est GFR ( Amer) 233.4 Est GFR (Non-Af Amer) 192.9 BUN/Creatinine Ratio 11.1 Glucose 182 H Lactic Acid 1.4 Calcium 7.8 L Magnesium Total Bilirubin AST ALT Alkaline Phosphatase Total Protein Albumin Globulin Albumin/Globulin Ratio 06/17/19 06/17/19 09:00 09:00 WBC 9.5 RBC 3.09 L Hgb 8.9 L Hct 27 L MCV 86 MCH 29 MCHC 34 RDW 14 Plt Count 299 MPV 7.3 L Neut % (Auto) Lymph % (Auto) [place] % (Auto) Eos % (Auto) Baso % (Auto) Absolute Neuts (auto) Absolute Lymphs (auto) Absolute Monos (auto) Absolute Eos (auto) Absolute Basos (auto) Absolute Nucleated RBC Nucleated RBC % Sodium 133 L Potassium 3.6 Chloride 103 Carbon Dioxide 22 Anion Gap 8 BUN 5 L Creatinine 0.48 L Est GFR ( Amer) 216.6 Est GFR (Non-Af Amer) 179.0 BUN/Creatinine Ratio 10.4 Glucose 114 H Lactic Acid Calcium 7.7 L Magnesium 1.7 L Total Bilirubin 0.90 AST 8 L ALT 6 L Alkaline Phosphatase 77 Total Protein 5.1 L Albumin 2.3 L Globulin 2.8 Albumin/Globulin Ratio 0.8 L Microbiology 06/16/19 17:48 Misc Fluid (See Comment) - Abscess Gram Stain - Final 06/16/19 17:48 Misc Fluid (See Comment) - Abscess Body Fluid Culture - Preliminary Citrobacter Braakii 06/16/19 21:20 Nasal Nasal Screen MRSA (PCR) - Final Mrsa Not Detected Assessment: 1. Intra abdominal abscess, likely polymicrobial 2. Cdif colitis 3. abdominal wound at previous drain site, air adjacent to duodenum on CT Plan: 1. continue cefepime 2 gm IV Q12hrs, flagyl 500 mg IV Q8hrs, vancomycin 125 mg by mouth 4 times daily 2. Repeat H/H ordered for today 3. eventual repeat CT abdomen/pelvis 35 minutes floor time >50% face to face with patient and his discussion of antibiotic and drain issues Discussed with Dr Thakkar
[2019-06-17 16:08] LABS: Hematocrit 27 % (42-52); Hemoglobin 9.4 g/dL (14.0-18.0)
[2019-06-17] MEDS: Acetaminophen TAB* 325 MG PO PRN (20:53)
[2019-06-18] MEDS: HYDROmorphone INJ1* 1 MG/ML SYRINGE IV PRN (03:45)
[2019-06-18] MEDS: metroNIDAZOLE IV 500 MG/100ML* 500 MG/100 ML BAG IVPB SCH ×3 (05:02→21:43)
[2019-06-18 05:27] LABS: ABS Eosinophils 0.1 10^3/ul (0-0.6); ABS Lymphocytes 0.8 10^3/ul (1.0-4.8); ABS Monocytes 0.9 10^3/ul (0-0.8); ABS Neutrophils 7.9 10^3/ul (1.5-7.7); Eosinophil % 0.6 %; Hematocrit 26 % (42-52); Lymphocyte % 7.8 %; Mean Corpuscular HGB Conc 34 g/dL (31-36); Mean Corpuscular Hemoglobin 29 pg (27-31); Mean Corpuscular Volume 84 fL (80-94); Mean Platelet Volume 6.8 fL (7.4-10.4); Nucleated Red Blood Cells % 0.1; Platelet Count 264 10^3/uL (150-450); Red Cell Distribution Width 14 % (10-15); White Blood Count 9.7 10^3/uL (3.5-10.8)
[2019-06-18 05:49] LABS: BUN/Creatinine Ratio 8.5 (8-20); C Reactive Protein 164.74 mg/L (<8.01); Calcium 7.8 mg/dL (8.6-10.3); EGFR African American 221.9 (>60); EGFR Non-African American 183.4 (>60); Magnesium 1.8 mg/dL (1.9-2.7); Potassium 2.8 mmol/L (3.5-5.0)
[2019-06-18] MEDS: Sucralfate SUSP 1 GM/10 ml 10 ML UDC PO SCH ×4 (06:08→20:56)
[2019-06-18] MEDS ORDERED: Magnesium Sulfate 2 GM IV* 2 GM/50 ML BAG IVPB ONE (08:00)
[2019-06-18] MEDS: Cefepime* 2 GM in Dextrose 50mL Q12H (Duplex) IV SCH ×2 (08:13→20:53)
[2019-06-18] MEDS: KCL 10 MEQ/50 ML IVPREMIX* 10 MEQ/50 ML BAG IV SCH ×3 (08:49→13:04)
[2019-06-18] MEDS: Potassium Chloride IV* 40 MEQ in Lactated Ringers 1000 ML Bag* 1,000 ML IVPB SCH (08:55)
[2019-06-18] MEDS: Morphine INJ* 2 MG/ML 1 ML SYRINGE (TWO MG - NEW SYRINGE VERSION) IV PRN (08:56)
[2019-06-18] MEDS: Pantoprazole TAB * 40 MG TAB PO SCH (09:42)
[2019-06-18] MEDS: Vancomycin CAP* 125 MG CAP PO SCH ×4 (09:48→20:52)
--- NOTE | 2019-06-18 13:40 | PN ---
Progress Note - Progress Note Date of Service: 06/18/19 SOAP: Subjective: Continues to feel better Appetite improved and wants some regular food One loose mush BM this morning No abdominal pain Objective: Temp Pulse Resp BP Pulse Ox 99.4 F 110 20 128/62 93 06/18/19 11:10 06/18/19 11:10 06/18/19 12:00 06/18/19 11:10 06/18/19 11:10 Intake & Output 06/16/19 06/17/19 06/18/19 06/19/19 06:59 06:59 06:59 06:59 Intake Total 3401 4231 3001 211 Output Total 298 091 3368 Balance 3151 3601 976 211 Weight 175 lb 12.8 oz 173 lb 9.6 oz Intake: IV Fluids 2141 3305 1670 8 NS 1880 3305 1670 8 magnesium 50 potassium 211 IVPB 50 566 471 83 ABX - CEFEPIME 100 52 ABX - FLAGYL 73 296 NS 83 magnesium 123 potassium 50 393 Oral 1210 360 860 120 Output: Pigtail Drain 130 75 Urine 814 128 0176 Other: Estimated Void Large Large # Bowel Movements 0 Estimated Stool Amount Small # Voids 3 1 PEX: Comfortable Lungs are clear, decreased breath sounds at the bases Cor is RRR Abd is soft an slightly distended. Few bowel sounds present. Small amount of turbid yellow purulent fluid drainage at old drain site. Right flank drain in place, thick purulent fluid in bag Ext without edema Laboratory Results - last 24 hr 06/17/19 06/18/19 06/18/19 15:17 05:22 05:22 WBC 9.7 RBC 3.10 L Hgb 9.4 L 9.0 L Hct 27 L 26 L MCV 84 MCH 29 MCHC 34 RDW 14 Plt Count 264 MPV 6.8 L Neut % (Auto) 81.8 Lymph % (Auto) 7.8 [place] % (Auto) 9.5 Eos % (Auto) 0.6 Baso % (Auto) 0.3 Absolute Neuts (auto) 7.9 H Absolute Lymphs (auto) 0.8 L Absolute Monos (auto) 0.9 H Absolute Eos (auto) 0.1 Absolute Basos (auto) 0.0 Absolute Nucleated RBC 0.0 Nucleated RBC % 0.1 Sodium 132 L Potassium 2.8 L Chloride 100 L Carbon Dioxide 26 Anion Gap 6 BUN 4 L Creatinine 0.47 L Est GFR ( Amer) 221.9 Est GFR (Non-Af Amer) 183.4 BUN/Creatinine Ratio 8.5 Glucose 119 H Calcium 7.8 L Magnesium 1.8 L C-Reactive Protein 164.74 H Prealbumin 5 L Cultures noted Blood cultures negative so far Assessment: S/P repair of perforated duodenal ulcer Abdominal abscess s/p drainage sepsis-improved c diff colitis Plan: Tx to [facility] Po Vanco Drainage IV abx Soft diet Increase activity PPI Replete K+ Add subq heparin
--- NOTE | 2019-06-18 15:01 | PN ---
Progress Note - Progress Note Date of Service: 06/18/19 SOAP: Subjective: CC: leukocytosis HPI: 59 year old man with repair of perforated duodenal ulcer complicated by fever and now diarrhea, loculated collection on CT adjacent to right kidney, US guided drain placed, continues to drain. Ongoing drainage from previous drain site. No fever or rash, had one loose stool today. Objective: Vital Signs Temp 37.4 C 06/18/19 11:10 Pulse 110 06/18/19 11:10 Resp 20 06/18/19 12:00 BP 128/62 06/18/19 11:10 Pulse Ox 93 06/18/19 11:10 Intake & Output 06/17/19 06/18/19 06/18/19 18:59 06:59 18:59 Intake Total 929 2072 551 Output Total 1475 550 Balance -546 1522 551 Weight 173 lb 9.6 oz Intake: IV Fluids 1670 8 NS 1670 8 IVPB 219 252 183 ABX - CEFEPIME 52 ABX - FLAGYL 96 200 NS 83 magnesium 123 potassium 100 Oral 710 150 360 Output: Pigtail Drain 75 Urine 1475 475 Other: Estimated Void Large Medium # Bowel Movements 1 Estimated Stool Amount Small # Voids 1 1 Gen:awake, no distress HEENT: no thrush Heart:RRR no murmur Lungs:CTA BL Abd:+BS non tender, soft, right sided drain with purulent fluid, midline wound with no erythema Skin: no rash Laboratory Results - last 24 hr 06/17/19 06/18/19 06/18/19 15:17 05:22 05:22 WBC 9.7 RBC 3.10 L Hgb 9.4 L 9.0 L Hct 27 L 26 L MCV 84 MCH 29 MCHC 34 RDW 14 Plt Count 264 MPV 6.8 L Neut % (Auto) 81.8 Lymph % (Auto) 7.8 [place] % (Auto) 9.5 Eos % (Auto) 0.6 Baso % (Auto) 0.3 Absolute Neuts (auto) 7.9 H Absolute Lymphs (auto) 0.8 L Absolute Monos (auto) 0.9 H Absolute Eos (auto) 0.1 Absolute Basos (auto) 0.0 Absolute Nucleated RBC 0.0 Nucleated RBC % 0.1 Sodium 132 L Potassium 2.8 L Chloride 100 L Carbon Dioxide 26 Anion Gap 6 BUN 4 L Creatinine 0.47 L Est GFR ( Amer) 221.9 Est GFR (Non-Af Amer) 183.4 BUN/Creatinine Ratio 8.5 Glucose 119 H Calcium 7.8 L Magnesium 1.8 L C-Reactive Protein 164.74 H Prealbumin 5 L Microbiology 06/16/19 17:48 Gram Stain - Final Misc Fluid (See Comment) - Abscess Body Fluid Culture - Preliminary Citrobacter Braakii Prevotella Buccae 06/16/19 10:45 Aerobic Blood Culture - Preliminary Blood Venous No Growth Day 1 Anaerobic Blood Culture - Preliminary No Growth Day 1 06/16/19 10:40 Aerobic Blood Culture - Preliminary Blood Venous No Growth Day 1 Anaerobic Blood Culture - Preliminary No Growth Day 1 Assessment: 1. Intra abdominal abscess s/p US guided drain 2. Cdif colitis 3. abdominal wound at previous drain site, air adjacent to duodenum on CT ? fistula Plan: 1. continue cefepime 2 gm IV Q12hrs, flagyl 500 mg IV Q8hrs, 2. vancomycin 125 mg by mouth 4 times daily day 03/[address] abdomen/pelvis planned
[2019-06-18] MEDS: HYDROcodone/ACETAMIN 5-325 MG* 1 TAB PO PRN ×2 (17:00→20:52)
[2019-06-19] MEDS: HYDROcodone/ACETAMIN 5-325 MG* 1 TAB PO PRN ×6 (01:02→21:01)
[2019-06-19] MEDS: HYDROmorphone INJ1* 1 MG/ML SYRINGE IV PRN ×2 (01:12→05:08)
[2019-06-19] MEDS: Heparin VIAL(*) 5000 UNITS/ML VIAL (FIVE THOUSAND) SUBCUT SCH ×3 (05:09→21:14)
[2019-06-19] MEDS: metroNIDAZOLE IV 500 MG/100ML* 500 MG/100 ML BAG IVPB SCH ×3 (05:10→21:00)
[2019-06-19] MEDS: Sucralfate SUSP 1 GM/10 ml 10 ML UDC PO SCH ×4 (06:04→21:00)
[2019-06-19 07:51] LABS: BUN/Creatinine Ratio 8.5 (8-20); Calcium 7.6 mg/dL (8.6-10.3); EGFR African American 221.9 (>60); EGFR Non-African American 183.4 (>60); Magnesium 1.6 mg/dL (1.9-2.7); Phosphorus 2.3 mg/dL (2.5-5.0); Potassium 2.9 mmol/L (3.5-5.0)
[2019-06-19] MEDS ORDERED: Magnesium Sulfate 2 GM IV* 2 GM/50 ML BAG IVPB ONE (08:11)
[2019-06-19] MEDS: Pantoprazole TAB * 40 MG TAB PO SCH (09:28)
[2019-06-19] MEDS: Potassium Chlor TAB* 20 MEQ TAB.ER PO SCH ×3 (09:28→21:00)
[2019-06-19] MEDS: KCL 10 MEQ/50 ML IVPREMIX* 10 MEQ/50 ML BAG IV SCH ×3 (09:29→12:56)
[2019-06-19] MEDS: Vancomycin CAP* 125 MG CAP PO SCH ×4 (10:45→21:00)
[2019-06-19] MEDS: Cefepime* 2 GM in Dextrose 50mL Q12H (Duplex) IV SCH ×2 (10:45→21:00)
--- NOTE | 2019-06-19 11:44 | PN ---
Progress Note - Progress Note Date of Service: 06/19/19 SOAP: Subjective: Feels the best he has all week Stools are firmer Tolerated regular diet No abdominal pain Objective: Temp Pulse Resp BP Pulse Ox 98.2 F 95 16 118/69 93 06/19/19 08:05 06/19/19 08:05 06/19/19 10:45 06/19/19 08:05 06/19/19 08:05 Intake & Output 06/17/19 06/18/19 06/19/19 06/20/19 06:59 06:59 06:59 06:59 Intake Total 4231 3001 2231 210 Output Total 630 2025 65 Balance 3601 976 2166 210 Weight 175 lb 12.8 oz 173 lb 9.6 oz Intake: IV Fluids 3305 1670 8 NS 3305 1670 8 IVPB 566 471 283 ABX - CEFEPIME 100 52 ABX - FLAGYL 73 296 100 NS 83 magnesium 123 potassium 393 100 Oral 251 884 9228 210 Output: Pigtail Drain 130 75 65 Urine 500 1950 0 Other: Estimated Void Large Medium Date of Last Bowel 06/18/19 Movement # Bowel Movements 0 Estimated Stool Amount Small # Voids 1 3 PEX: Comfortable Lungs are clear Cor is RRR Abd is soft and slightly distended. Bowel sounds are present. Drainage bag with thick yellow purulent output. Abd old drain site with yellow drainage. Ext without edema Laboratory Results - last 24 hr 06/19/19 07:04 Sodium 130 L Potassium 2.9 L Chloride 96 L Carbon Dioxide 27 Anion Gap 7 BUN 4 L Creatinine 0.47 L Est GFR ( Amer) 221.9 Est GFR (Non-Af Amer) 183.4 BUN/Creatinine Ratio 8.5 Glucose 105 H Calcium 7.6 L Phosphorus 2.3 L Magnesium 1.6 L Assessment: S/P repair of perforated duodenal ulcer Abd abscess S/P drainage Sepsis C Diff colitis Low K+ Plan: Replete K+ IV abx Oral vanco Subq heparin PPI Repeat CT tomorrow
[2019-06-19] MEDS: Potassium Chloride IV* 40 MEQ in Lactated Ringers 1000 ML Bag* 1,000 ML IVPB SCH (17:12)
[2019-06-20] MEDS: HYDROmorphone INJ1* 1 MG/ML SYRINGE IV PRN ×3 (00:21→21:19)
[2019-06-20] MEDS: metroNIDAZOLE IV 500 MG/100ML* 500 MG/100 ML BAG IVPB SCH ×3 (05:31→21:23)
[2019-06-20] MEDS: Heparin VIAL(*) 5000 UNITS/ML VIAL (FIVE THOUSAND) SUBCUT SCH ×3 (05:31→21:19)
[2019-06-20] MEDS: Sucralfate SUSP 1 GM/10 ml 10 ML UDC PO SCH ×4 (05:55→21:05)
[2019-06-20 05:58] LABS: BUN/Creatinine Ratio 8.9 (8-20); Calcium 7.8 mg/dL (8.6-10.3); EGFR African American 233.4 (>60); EGFR Non-African American 192.9 (>60); Magnesium 1.6 mg/dL (1.9-2.7); Potassium 3.7 mmol/L (3.5-5.0)
[2019-06-20] MEDS: Vancomycin CAP* 125 MG CAP PO SCH ×4 (08:03→21:07)
[2019-06-20] MEDS: Pantoprazole TAB * 40 MG TAB PO SCH (08:03)
[2019-06-20] MEDS: Potassium Chlor TAB* 20 MEQ TAB.ER PO SCH ×3 (08:11→21:05)
[2019-06-20] MEDS: Cefepime* 2 GM in Dextrose 50mL Q12H (Duplex) IV SCH ×2 (10:12→21:08)
--- NOTE | 2019-06-20 11:09 | PN ---
Progress Note - Progress Note Date of Service: 06/20/19 SOAP: Subjective: No further diarrhea No pain Has noted green drainage from anterior abdominal old drain site Objective: Temp Pulse Resp BP Pulse Ox 99 F 92 20 128/68 92 06/20/19 07:26 06/20/19 07:26 06/20/19 08:00 06/20/19 07:26 06/20/19 07:26 Intake & Output 06/18/19 06/19/19 06/20/19 06/21/19 06:59 06:59 06:59 06:59 Intake Total 3001 2231 1170 Output Total 2024 65 580 Balance 976 2166 590 Weight 173 lb 9.6 oz Intake: IV Fluids 1670 8 NS 1670 8 IVPB 471 283 250 ABX - CEFEPIME 52 50 ABX - FLAGYL 296 100 200 NS 83 magnesium 123 potassium 100 Oral 860 1940 920 Output: Pigtail Drain 75 65 30 Urine 1950 0 550 Other: Estimated Void Large Medium Medium Medium Date of Last Bowel 06/18/19 06/20/19 Movement # Bowel Movements 0 1 Estimated Stool Amount Small Small # Voids 1 3 1 1 PEX: Comfortable Lungs are clear Cor is RRR Abd is soft and slightly distended. Bowel sounds are present, no tenderness Right flank pain with yellow thick purulent fluid in bag. Old anterior drain site now with green thin drainage. Ext without edema Sodium 129 mmol/L (135-145) L 06/20/19 05:09 Potassium 3.7 mmol/L (3.5-5.0) 06/20/19 05:09 BUN 4 mg/dL (6-24) L 06/20/19 05:09 Creatinine 0.45 mg/dL (0.67-1.17) L 06/20/19 05:09 Calcium 7.8 mg/dL (8.6-10.3) L 06/20/19 05:09 Magnesium 1.6 mg/dL (1.9-2.7) L 06/20/19 05:09 AST 8 U/L (13-39) L 06/17/19 09:00 ALT 6 U/L (7-52) L 06/17/19 09:00 Assessment: S/P repair of large perforated duodenal ulcer-now with bilious drainage at site of previous drain site. Abd abscess sepsis-resolved C diff colitis-improving Plan: CT scan today-will review IV abx Oral vancomycin PPI Wound care at bilious drainage site-?? possible new drain placement, discuss with IR.
[2019-06-20] MEDS ORDERED: Iohexol 300* (CONTRAST) 10 ML SDV IV SCH (11:10)
[2019-06-21] MEDS: HYDROmorphone INJ1* 1 MG/ML SYRINGE IV PRN ×2 (04:05→21:31)
[2019-06-21 05:25] LABS: Hematocrit 30 % (42-52); Hemoglobin 9.8 g/dL (14.0-18.0); Mean Corpuscular HGB Conc 33 g/dL (31-36); Mean Corpuscular Hemoglobin 27 pg (27-31); Mean Corpuscular Volume 83 fL (80-94); Platelet Count 396 10^3/uL (150-450); Red Blood Count 3.59 10^6 /uL (4.18-5.48); Red Cell Distribution Width 14 % (10-15); White Blood Count 19.1 10^3/uL (3.5-10.8)
[2019-06-21 05:30] LABS: ABS Eosinophils 0.1 10^3/ul (0-0.6); ABS Lymphocytes 2.1 10^3/ul (1.0-4.8); ABS Monocytes 1.7 10^3/ul (0-0.8); ABS Neutrophils 15.1 10^3/ul (1.5-7.7); Eosinophil % 0.5 %
[2019-06-21] MEDS: metroNIDAZOLE IV 500 MG/100ML* 500 MG/100 ML BAG IVPB SCH ×3 (06:10→22:00)
[2019-06-21] MEDS: Heparin VIAL(*) 5000 UNITS/ML VIAL (FIVE THOUSAND) SUBCUT SCH ×3 (06:10→21:34)
[2019-06-21] MEDS: Sucralfate SUSP 1 GM/10 ml 10 ML UDC PO SCH ×4 (06:15→21:14)
[2019-06-21] MEDS: Cefepime* 2 GM in Dextrose 50mL Q12H (Duplex) IV SCH ×2 (08:31→21:13)
[2019-06-21] MEDS: Vancomycin CAP* 125 MG CAP PO SCH ×4 (08:31→21:16)
[2019-06-21] MEDS: Pantoprazole TAB * 40 MG TAB PO SCH (08:31)
[2019-06-21] MEDS: Potassium Chlor TAB* 20 MEQ TAB.ER PO SCH ×3 (08:32→21:14)
--- NOTE | 2019-06-21 08:34 | PN ---
Progress Note - Progress Note Date of Service: 06/21/19 Note: S: This is a 59 y/o male. No diarrhea, although stool is still soft. No abdominal pain. Some pain with inspiration with pigtail drain on R side. Still notes green drainage from old abdominal drain site. Swollen ankles still for the past 4 days. Ambulating, eating, and toileting without difficulty. Denies fever, chills, chest pain, SOB, nausea, vomiting. Active medications are as follows: Acetaminophen (Tylenol Tab*) 650 mg PO Q4H PRN PRN Reason: mild pain or fever Last Admin: 06/17/19 20:53 Dose: 650 mg Hydrocodone Bitart/Acetaminophen ([place] 5-325 Tab*) 1 tab PO Q4H PRN PRN Reason: moderate pain Last Admin: 06/18/19 17:00 Dose: 1 tab Hydrocodone Bitart/Acetaminophen ([place] 5-325 Tab*) 2 tab PO Q4H PRN PRN Reason: moderately severe pain Last Admin: 06/19/19 21:01 Dose: 2 tab Heparin Sodium (Porcine) (Heparin Vial(*)) 5,000 units SUBCUT Q8HR JAYLON Last Admin: 06/21/19 06:10 Dose: 5,000 units Hydromorphone HCl (Dilaudid Inj1s*) 1 mg IV Q2H PRN PRN Reason: PAIN Last Admin: 06/21/19 04:05 Dose: 1 mg Cefepime HCl (Maxipime 2 Gm In Dextrose Duplex (*)) 2 gm in 50 mls @ 100 mls/ hr IV Q12H JAYLON Last Admin: 06/20/19 21:08 Dose: 100 mls/hr Metronidazole/Sodium Chloride (Flagyl 500 Mg Ivpb*) 500 mg in 100 mls @ 100 mls /hr IVPB Q8H JAYLON Last Admin: 06/21/19 06:10 Dose: 100 mls/hr Iohexol (Omnipaque 300* (Contrast)) 104 ml IV ONCE JAYLON Stop: 06/22/19 11:09 Last Admin: 06/20/19 12:22 Dose: 104 ml Metoclopramide HCl (Reglan Iv*) 10 mg IV Q6H PRN PRN Reason: NAUSEA Morphine Sulfate (Morphine Inj (Syringe))*) 2 mg IV Q2H PRN PRN Reason: PAIN - MODERATE Last Admin: 06/18/19 08:56 Dose: 2 mg Ondansetron HCl (Zofran Inj*) 4 mg IV Q6H PRN PRN Reason: NAUSEA Last Admin: 06/15/19 02:59 Dose: 4 mg Pantoprazole Sodium (Protonix Tab*) 40 mg PO DAILY [facility] Last Admin: 06/20/19 08:03 Dose: 40 mg Potassium Chloride (Klor Con Er Tab*) 20 meq PO TID [facility] Last Admin: 06/20/19 21:05 Dose: Not Given Sucralfate (Sucralfate Susp) 1 gm PO 0630,1100,1600,2100 [facility] Last Admin: 06/21/19 06:15 Dose: Not Given Vancomycin HCl (Vancomycin Cap*) 125 mg PO QID [facility] Last Admin: 06/20/19 21:07 Dose: 125 mg O: Vital Signs Temp 98.7 F 06/21/19 04:12 Pulse 91 06/21/19 04:12 Resp 18 06/21/19 08:00 BP 122/60 06/21/19 04:12 Pulse Ox 92 06/21/19 04:12 Intake & Output 06/20/19 06/21/19 06/21/19 18:59 06:59 18:59 Intake Total 730 1140 Output Total 40 650 Balance 690 490 Intake: IVPB 100 ABX - FLAGYL 100 Oral 720 1040 Pigtail Drain 10 Output: Pigtail Drain 40 Urine 650 Other: Estimated Void Medium Medium # Bowel Movements 1 Estimated Stool Amount Medium # Voids 1 2 General: patient sitting comfortably on bed, no acute distress. A&O x 3. Cardio: regular rate and rhythm. peripheral edema bilaterally. pedal pulse present bilaterally. Respiratory: lungs clear to auscultation throughout bilaterally abdomen: pigtail drain in place without surrounding leakage. bag with minimal yellow purulent drainage. Old drain site dressing removed with yellow/green thin drainage on dressing. Some drainage can be expressed. Old drain site dressing replaced with new. Bowel sounds normoactive throughout. No tenderness to palpation. A: s/p repair of large perforated duodenal ulcer now with bilious drainage at previous drain site abd abscess with pigtail drain in place - decreasing drainage per day sepsis-resolved c. diff colitis - improving P: continue IV abx and oral vanco PPI continue regular dressing change at old drain site and monitor pigtail drain drainage continue regular ambulation patient and have questions about plan of care for the coming week
--- NOTE | 2019-06-21 15:59 | BRIEFOPN ---
Brief Operative Note - Surgery Procedures: Procedures Pre procedure Dx: R pleural effusion Post procedure Dx: R pleural effusion Procedure: R thoracentesis Surgeon: Nasreen Asst: none Ida: local EBL: none Fluid: none Spec: none Complications: No thin fluid appreciated- possible loculated
--- NOTE | 2019-06-21 16:06 | PN ---
Progress Note - Progress Note Date of Service: 06/21/19 SOAP: Subjective: Pt seen and examined. Case d/w Dr. Thakkar. case and images reviewed. Today pt feels better than he has for a long time. no nausea. tolerating soft diet. loose BM., Still on contact for C diff. Pigtail in place. on RA. He is sad. no headache. no SOB. No abdo pain. Objective: Temp Pulse Resp BP Pulse Ox 98.7 F 103 16 116/80 94 06/21/19 11:30 06/21/19 11:30 06/21/19 11:30 06/21/19 11:30 06/21/19 11:30 Intake & Output 06/21/19 06/21/19 06/21/19 06:59 14:59 22:59 Intake Total 240 875 135 Output Total 350 405 Balance -110 470 135 a and o x3 not jaundiced. lungs decreased BS on R abdo: soft/ ND/ NT RUQ BENNIE site with scant drainage- greenish yellow pigtial: purulent ext: 2+ pitting edema labs noted Laboratory Last Values WBC 19.1 10^3/uL (3.5-10.8) H 06/21/19 04:50 RBC 3.59 10^6 /uL (4.18-5.48) L 06/21/19 04:50 Hgb 9.8 g/dL (14.0-18.0) L 06/21/19 04:50 Hct 30 % (42-52) L 06/21/19 04:50 MCV 83 fL (80-94) 06/21/19 04:50 MCH 27 pg (27-31) 06/21/19 04:50 MCHC 33 g/dL (31-36) 06/21/19 04:50 RDW 14 % (10-15) 06/21/19 04:50 Plt Count 396 10^3/uL (150-450) 06/21/19 04:50 MPV 7.0 fL (7.4-10.4) L 06/21/19 04:50 Neut % (Auto) 79.2 % 06/21/19 04:50 Lymph % (Auto) 11.0 % 06/21/19 04:50 [place] % (Auto) 9.1 % 06/21/19 04:50 Eos % (Auto) 0.5 % 06/21/19 04:50 Baso % (Auto) 0.2 % 06/21/19 04:50 Absolute Neuts (auto) 15.1 10^3/ul (1.5-7.7) H 06/21/19 04:50 Absolute Lymphs (auto) 2.1 10^3/ul (1.0-4.8) 06/21/19 04:50 Absolute Monos (auto) 1.7 10^3/ul (0-0.8) H 06/21/19 04:50 Absolute Eos (auto) 0.1 10^3/ul (0-0.6) 06/21/19 04:50 Absolute Basos (auto) 0.0 10^3/ul (0-0.2) 06/21/19 04:50 Absolute Nucleated RBC 0.0 10^3/ul 06/21/19 04:50 Nucleated RBC % 0.0 06/21/19 04:50 Sodium 129 mmol/L (135-145) L 06/20/19 05:09 Potassium 3.7 mmol/L (3.5-5.0) 06/20/19 05:09 Chloride 97 mmol/L (101-111) L 06/20/19 05:09 Carbon Dioxide 25 mmol/L (22-32) 06/20/19 05:09 Anion Gap 7 mmol/L (2-11) 06/20/19 05:09 BUN 4 mg/dL (6-24) L 06/20/19 05:09 Creatinine 0.45 mg/dL (0.67-1.17) L 06/20/19 05:09 Est GFR ( Amer) 233.4 (>60) 06/20/19 05:09 Est GFR (Non-Af Amer) 192.9 (>60) 06/20/19 05:09 BUN/Creatinine Ratio 8.9 (8-20) 06/20/19 05:09 Glucose 106 mg/dL (70-100) H 06/20/19 05:09 Lactic Acid 1.4 mmol/L (0.5-2.0) 06/16/19 21:35 Calcium 7.8 mg/dL (8.6-10.3) L 06/20/19 05:09 Phosphorus 2.3 mg/dL (2.5-5.0) L 06/19/19 07:04 Magnesium 1.6 mg/dL (1.9-2.7) L 06/20/19 05:09 Total Bilirubin 0.90 mg/dL (0.2-1.0) 06/17/19 09:00 AST 8 U/L (13-39) L 06/17/19 09:00 ALT 6 U/L (7-52) L 06/17/19 09:00 Alkaline Phosphatase 77 U/L (34-104) 06/17/19 09:00 C-Reactive Protein 164.74 mg/L (<8.01) H 06/18/19 05:22 Total Protein 5.1 g/dL (6.4-8.9) L 06/17/19 09:00 Albumin 2.3 g/dL (3.2-5.2) L 06/17/19 09:00 Globulin 2.8 g/dL (2-4) 06/17/19 09:00 Albumin/Globulin Ratio 0.8 (1-3) L 06/17/19 09:00 Prealbumin 5 mg/dL (18-38) L 06/18/19 05:22 CT reviewed Assessment: s/p doudenal perf patch that has leaked; 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 perinephric abscess R pleural effusion C diff Plan: R thoracentesis SSRI abx encourage PO
--- NOTE | 2019-06-21 20:27 | OP ---
DATE OF OPERATION: 06/21/19 - ROOM #339 DATE OF : 62 SURGEON: Neville Downey MD. SUPERVISING BAILIFF: None. ANESTHESIA: Local. PRE-OP DIAGNOSIS: Right pleural effusion. POST-OP DIAGNOSIS: Right pleural effusion. OPERATIVE PROCEDURE: Right thoracentesis. SPECIMEN: None. DESCRIPTION OF PROCEDURE: Mr. Cardenas is a 59-year-old gentleman, on recent CT scan showed a large right pleural effusion with questionable loculations. I recommended thoracentesis for diagnosis and possible treatment options. I described the procedure in detail, going over the risks, benefits, and alternatives. The patient agreed and signed consent. Time-out was performed. Right chest was prepped sterilely, and at the 9th intercostal space, lidocaine was injected. An incision was made and a 8-Hebrew catheter was inserted into the chest with ease. The catheter was advanced, but we were still unable to get any fluid from the catheter. This was backed out slowly and still no fluid was removed. The catheter was removed in its entirety and a bandage applied. The patient tolerated the procedure well. Plan will be for IR- guided specimen and possible chest tube placement. This was all explained to the patient. [id number]/CPS #: [id number] [facility]
[2019-06-22] MEDS: HYDROmorphone INJ1* 1 MG/ML SYRINGE IV PRN ×4 (01:07→22:26)
[2019-06-22 05:32] LABS: ABS Basophils 0.2 10^3/ul (0-0.2); ABS Eosinophils 0.1 10^3/ul (0-0.6); ABS Lymphocytes 2.2 10^3/ul (1.0-4.8); ABS Monocytes 1.5 10^3/ul (0-0.8); ABS Neutrophils 12.4 10^3/ul (1.5-7.7); Eosinophil % 0.4 %; Hematocrit 28 % (42-52); Hemoglobin 9.4 g/dL (14.0-18.0); Lymphocyte % 13.6 %; Mean Corpuscular HGB Conc 34 g/dL (31-36); Mean Corpuscular Hemoglobin 28 pg (27-31); Mean Corpuscular Volume 84 fL (80-94); Mean Platelet Volume 6.7 fL (7.4-10.4); Platelet Count 354 10^3/uL (150-450); Red Blood Count 3.37 10^6 /uL (4.18-5.48); Red Cell Distribution Width 14 % (10-15); White Blood Count 16.5 10^3/uL (3.5-10.8)
[2019-06-22 05:40] LABS: INR 1.38 (0.82-1.09)
[2019-06-22] MEDS: Sucralfate SUSP 1 GM/10 ml 10 ML UDC PO SCH (05:48)
[2019-06-22 05:51] LABS: Albumin 2.1 g/dL (3.2-5.2); Albumin/Globulin Ratio 0.7 (1-3); BUN/Creatinine Ratio 8.9 (8-20); Calcium 7.7 mg/dL (8.6-10.3); EGFR African American 233.4 (>60); EGFR Non-African American 192.9 (>60); Globulin 3.2 g/dL (2-4); Potassium 3.3 mmol/L (3.5-5.0); Total Bilirubin 0.4 mg/dL (0.2-1.0); Total Protein 5.3 g/dL (6.4-8.9)
[2019-06-22] MEDS: metroNIDAZOLE IV 500 MG/100ML* 500 MG/100 ML BAG IVPB SCH ×3 (05:52→23:54)
[2019-06-22] MEDS: Heparin VIAL(*) 5000 UNITS/ML VIAL (FIVE THOUSAND) SUBCUT SCH ×3 (05:52→21:43)
[2019-06-22] MEDS: Potassium Chlor TAB* 20 MEQ TAB.ER PO SCH (08:28)
[2019-06-22] MEDS: Cefepime* 2 GM in Dextrose 50mL Q12H (Duplex) IV SCH ×2 (09:44→23:34)
[2019-06-22] MEDS: Citalopram TAB* 10 MG PO SCH (09:44)
[2019-06-22] MEDS: Pantoprazole TAB * 40 MG TAB PO SCH (09:44)
[2019-06-22] MEDS: Vancomycin CAP* 125 MG CAP PO SCH ×4 (09:44→21:42)
--- NOTE | 2019-06-22 10:17 | PN ---
Progress Note - Progress Note Date of Service: 06/22/19 SOAP: Subjective: CC: Leukocytosis HPI: Mr. Cardenas is a 59 yo male with PMH significant for perforated duodenal ulcer S/P surgical repair. Reports that stools have been formed for about 4-5 days. Denies fever, chills, shortness of breath, cough, nausea, vomiting, or diarrhea. Reports decreasing amount of drainage from the pigtail drain. Continued to have a small amount of drainage from the old drain site. Objective: Vital Signs 06/22/19 06/22/19 07:26 08:00 Temperature 98.7 F Pulse Rate 95 Respiratory 16 16 Rate Blood Pressure 124/65 (mmHg) O2 Sat by Pulse 92 Oximetry Physical Exam: General: NAD, sitting up on the edge of the bed Neurological: Alert and Oriented x4 HEENT: Moist MM, no thrush Cardiovascular: Heart rate regular Respiratory: Lung sounds clear Abdominal: Bowel sounds present; ABD large, soft, and non tender Skin: No rash Laboratory Results - last 24 hr 06/22/19 06/22/19 06/22/19 05:08 05:08 05:08 WBC 16.5 H RBC 3.37 L Hgb 9.4 L Hct 28 L MCV 84 MCH 28 MCHC 34 RDW 14 Plt Count 354 MPV 6.7 L Neut % (Auto) 75.5 Lymph % (Auto) 13.6 [place] % (Auto) 9.2 Eos % (Auto) 0.4 Baso % (Auto) 1.3 Absolute Neuts (auto) 12.4 H Absolute Lymphs (auto) 2.2 Absolute Monos (auto) 1.5 H Absolute Eos (auto) 0.1 Absolute Basos (auto) 0.2 Absolute Nucleated RBC 0.0 Nucleated RBC % 0.0 INR (Anticoag Therapy) 1.38 H Sodium 131 L Potassium 3.3 L Chloride 96 L Carbon Dioxide 27 Anion Gap 8 BUN 4 L Creatinine 0.45 L Est GFR ( Amer) 233.4 Est GFR (Non-Af Amer) 192.9 BUN/Creatinine Ratio 8.9 Glucose 113 H Calcium 7.7 L Total Bilirubin 0.40 AST 7 L ALT 4 L Alkaline Phosphatase 82 Total Protein 5.3 L Albumin 2.1 L Globulin 3.2 Albumin/Globulin Ratio 0.7 L Microbiology 06/16/19 10:45 Aerobic Blood Culture - Final Blood Venous No Growth Day 5 Anaerobic Blood Culture - Final No Growth Day 5 06/16/19 10:40 Aerobic Blood Culture - Final Blood Venous No Growth Day 5 Anaerobic Blood Culture - Final No Growth Day 5 06/16/19 17:48 Gram Stain - Final Misc Fluid (See Comment) - Abscess Body Fluid Culture - Final Citrobacter Braakii Prevotella Buccae 06/16/19 21:20 Nasal Screen MRSA (PCR) - Final Nasal Mrsa Not Detected 06/14/19 20:10 Stool Gross Appearance - Final Stool C. difficile DNA Amplification - Final 027 Presumptive NEGATIVE Toxigenic C.diff POSITIVE Assessment: 1. C diff colitis. Reports that stools have been formed and returned to normal 4 -5 days ago. Afebrile. Continues to have leukocytosis. 2. Intra abdominal abscess. S/P US guided drain, continues to have cloudy drainage. There is an ABD wound at the previous drain site, that continues to have a small amount of drainage. Abscess drainage with citrobacter Braakii, and Prevotella Buccae. Blood cultures with no growth on day 5. Afebrile, continues to ave leukocytosis. 3. Pleural effusion. Plans for a thoracentesis later today. Plan: Continue cefepime 2 gm IV Q12hrs and flagyl 500 mg IV Q8hrs, will need 4 weeks of IV ABX. Day 05/21. Continue Vancomycin 125 mg by mouth 4 times daily day . Discussed with patient and that for the best outcome an extended course of IV ABX is the best option. We also discussed the options of home infusions vs outpatient infusions.
--- NOTE | 2019-06-22 10:28 | PN ---
<PerezZelda - Last Filed: 06/22/19 09:56> Progress Note - Progress Note Date of Service: 06/22/19 Note: S: Patient seen and examined with ALEM Allen and KANNAN CarlosS. 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 S/p unsuccessful thoracentesis yesterday [id number]. Patient is feeling well, continues to feel better each day. Requires dilaudid for comfort from pigtail drain while trying to go to sleep at night. Some nausea when eating meats, but no vomiting. Regular 2 BM's per day. Patient has been ambulating, urinating, and eating without difficulty. Has sharp, non- radiating pain near pigtail drain on R side when takes deep inspiration. Patient has a cough with sputum production. Has not spit out and is unable to note on quality and quantity. Took first dose of Celexa today as prescribed by Dr. Downey. Denies fever, chills, abdominal pain, chest pain, or shortness of breath. Active medications are as follows: Acetaminophen (Tylenol Tab*) 650 mg PO Q4H PRN PRN Reason: mild pain or fever Last Admin: 06/17/19 20:53 Dose: 650 mg Hydrocodone Bitart/Acetaminophen ([place] 5-325 Tab*) 1 tab PO Q4H PRN PRN Reason: moderate pain Last Admin: 06/18/19 17:00 Dose: 1 tab Hydrocodone Bitart/Acetaminophen ([place] 5-325 Tab*) 2 tab PO Q4H PRN PRN Reason: moderately severe pain Last Admin: 06/19/19 21:01 Dose: 2 tab Citalopram Hydrobromide (Celexa Tab*) 10 mg PO DAILY [facility] Last Admin: 06/22/19 09:44 Dose: 10 mg Heparin Sodium (Porcine) (Heparin Vial(*)) 5,000 units SUBCUT Q8HR JAYLON Last Admin: 06/22/19 05:52 Dose: 5,000 units Hydromorphone HCl (Dilaudid Inj1s*) 1 mg IV Q2H PRN PRN Reason: PAIN Last Admin: 06/22/19 03:46 Dose: 1 mg Cefepime HCl (Maxipime 2 Gm In Dextrose Duplex (*)) 2 gm in 50 mls @ 100 mls/ hr IV Q12H [facility] Last Admin: 06/22/19 09:44 Dose: 100 mls/hr Metronidazole/Sodium Chloride (Flagyl 500 Mg Ivpb*) 500 mg in 100 mls @ 100 mls /hr IVPB Q8H [facility] Last Admin: 06/22/19 05:52 Dose: 100 mls/hr Iohexol (Omnipaque 300* (Contrast)) 104 ml IV ONCE [facility] Stop: 06/22/19 11:09 Last Admin: 06/20/19 12:22 Dose: 104 ml Metoclopramide HCl (Reglan Iv*) 10 mg IV Q6H PRN PRN Reason: NAUSEA Morphine Sulfate (Morphine Inj (Syringe))*) 2 mg IV Q2H PRN PRN Reason: PAIN - MODERATE Last Admin: 06/18/19 08:56 Dose: 2 mg Ondansetron HCl (Zofran Inj*) 4 mg IV Q6H PRN PRN Reason: NAUSEA Last Admin: 06/15/19 02:59 Dose: 4 mg Pantoprazole Sodium (Protonix Tab*) 40 mg PO DAILY [facility] Last Admin: 06/22/19 09:44 Dose: 40 mg Potassium Chloride (Klor Con Er Tab*) 20 meq PO TID [facility] Last Admin: 06/22/19 08:28 Dose: Not Given Sucralfate (Sucralfate Susp) 1 gm PO 0630,1100,1600,2100 [facility] Last Admin: 06/22/19 05:48 Dose: Not Given Vancomycin HCl (Vancomycin Cap*) 125 mg PO QID [facility] Last Admin: 06/22/19 09:44 Dose: 125 mg O: Vital Signs Temp 98.7 F 06/22/19 07:26 Pulse 95 06/22/19 07:26 Resp 18 06/22/19 08:00 BP 124/65 06/22/19 07:26 Pulse Ox 92 06/22/19 07:26 Intake & Output 06/21/19 06/22/19 06/22/19 18:59 06:59 18:59 Intake Total 1010 545 Output Total 405 950 Balance 605 -405 Intake: IV Fluids 300 175 ABX - CEFEPIME 55 50 ABX - FLAGYL 220 100 NS 25 25 Oral 710 360 Pigtail Drain 10 Output: Pigtail Drain 5 Urine 400 950 Other: # Bowel Movements 0 General: patient sitting comfortably on bed in no acute distress. A&O x 3. Cardio: Regular rate and rhythm. Respiratory: lungs clear to auscultation in upper lobes and L lung base. R lung base diminished breath sounds. No wheezes or rhonchi auscultated. Abdomen: dressings in place on old surgical site and over pigtail drain on right side. No drainage from the pigtail drain. Patient states that the pigtail drain fluid pouch has not been emptied in over 24 hours. Juan Daniel emptied about 10 cc of thin yellow/green fluid from the pigtail pouch. The original drain site on the anterior R side had minimal green/yellow drainage compared to yesterday morning. The dressing was not changed. No tenderness to palpation of the abdomen. 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 Patient is feeling the best he has in a few weeks. P: discontinue sucralfate and morphine because patient is not using either encouraged use of hydrocodone as opposed to dilaudid for uncomfortableness while attempting to go to sleep to work on switching from IV pain medication to PO Decreased dose of potassium supplement because first dose the pill was too big for the patient to swallow Discussed with patient that he will be going to IR for guided thoracentesis later today. Confirmed with his nurse that the patient is going at 11:15 this morning. Patient and his had questions regarding going NPO to decrease bile production versus continuing to eat regularly to maintain stamina. Discussed with both patient and to continue eating regularly at this point until otherwise notified of a different eating regimen. <Neville Downey - Last Filed: 06/22/19 14:08> Progress Note - Progress Note Note: I saw and evaluated the patient. Agree with NPP's note. decreased drainage from RUQ site, Abdo: nontender purulent drainage to pigtail Plan: thoracentesis; drainage.
[2019-06-22] MEDS: Potassium Chlor TAB* 10 MEQ TAB.ER PO SCH ×2 (11:15→21:42)
[2019-06-22] MEDS ORDERED: fentaNYL* 50 MCG/ML 2 ML VIAL (100 MCG VIAL) ONE (13:47)
[2019-06-22] MEDS ORDERED: Magnesium Sulfate 1 GM IV* 1 GM/100 ML BAG IV ONE (14:09)
[2019-06-22] MEDS: KCL 20 MEQ/100 ML IVPREMIX* 20 MEQ/100 ML BAG IV SCH (19:39)
[2019-06-23] MEDS: HYDROmorphone INJ1* 1 MG/ML SYRINGE IV PRN ×4 (00:36→21:25)
[2019-06-23] MEDS: KCL 20 MEQ/100 ML IVPREMIX* 20 MEQ/100 ML BAG IV SCH ×2 (01:07→06:33)
[2019-06-23] MEDS: Heparin VIAL(*) 5000 UNITS/ML VIAL (FIVE THOUSAND) SUBCUT SCH ×3 (05:13→21:32)
[2019-06-23 06:45] LABS: ABS Basophils 0.1 10^3/ul (0-0.2); ABS Eosinophils 0.1 10^3/ul (0-0.6); ABS Monocytes 1.2 10^3/ul (0-0.8); ABS Neutrophils 11.3 10^3/ul (1.5-7.7); Eosinophil % 0.4 %; Hematocrit 28 % (42-52); Hemoglobin 9.4 g/dL (14.0-18.0); Lymphocyte % 13.4 %; Mean Corpuscular HGB Conc 34 g/dL (31-36); Mean Corpuscular Hemoglobin 28 pg (27-31); Mean Corpuscular Volume 83 fL (80-94); Mean Platelet Volume 6.5 fL (7.4-10.4); Platelet Count 372 10^3/uL (150-450); Red Blood Count 3.34 10^6 /uL (4.18-5.48); Red Cell Distribution Width 15 % (10-15); White Blood Count 14.7 10^3/uL (3.5-10.8)
[2019-06-23] MEDS: HYDROcodone/ACETAMIN 5-325 MG* 1 TAB PO PRN ×2 (07:56→13:01)
[2019-06-23] MEDS: metroNIDAZOLE IV 500 MG/100ML* 500 MG/100 ML BAG IVPB SCH ×3 (08:00→23:57)
[2019-06-23] MEDS: Citalopram TAB* 10 MG PO SCH (09:21)
[2019-06-23] MEDS: Potassium Chlor TAB* 10 MEQ TAB.ER PO SCH ×2 (09:21→21:31)
[2019-06-23] MEDS: Vancomycin CAP* 125 MG CAP PO SCH ×4 (09:21→21:30)
[2019-06-23] MEDS: Pantoprazole TAB * 40 MG TAB PO SCH (09:21)
[2019-06-23] MEDS: Cefepime* 2 GM in Dextrose 50mL Q12H (Duplex) IV SCH ×2 (09:21→21:25)
--- NOTE | 2019-06-23 10:17 | PN ---
Progress Note - Progress Note Date of Service: 06/23/19 SOAP: Subjective: CC: Leukocytosis HPI: Mr. Cardenas is a 59 yo male with PMH significant for perforated duodenal ulcer S/P surgical repair. Stools have been loose with a "few daily", improved from admission. Denies fever, chills, ABD pain, nausea, vomiting, or diarrhea. He is anxious to be discharged, he feels like he will be able to manage IV ABX at home. Reports continued drainage from pigtail catheter, but reports this is decreasing. Reports a small amount of drainage on the dressing from the previous drain. He still has a capped off catheter in place from the thoracentesis yesterday. Feels like his breathing is improved, able to take a deep breath, and cough has decreased. Objective: Vital Signs - 8 hr 06/23/19 06/23/19 06/23/19 05:15 06:21 07:40 Temperature 98.5 F Pulse Rate 93 Respiratory 16 16 20 Rate Blood Pressure 119/68 (mmHg) O2 Sat by Pulse 90 Oximetry Physical Exam: General: NAD, sitting up in bed Neurological: Alert and Oriented x4 HEENT: No thrush, moist MM Cardiovascular: Heart rate regular Respiratory: Lung sounds clear bilateral Abdominal: Bowel sounds present; ABD soft, non tender and non distended. Pigtail drain to the right side of the ABD with purulent drainage Skin: No rash seen Laboratory Results - last 24 hr 06/23/19 06/23/19 06:39 06:39 WBC 14.7 H RBC 3.34 L Hgb 9.4 L Hct 28 L MCV 83 MCH 28 MCHC 34 RDW 15 Plt Count 372 MPV 6.5 L Neut % (Auto) 77.1 Lymph % (Auto) 13.4 [place] % (Auto) 8.3 Eos % (Auto) 0.4 Baso % (Auto) 0.8 Absolute Neuts (auto) 11.3 H Absolute Lymphs (auto) 2.0 Absolute Monos (auto) 1.2 H Absolute Eos (auto) 0.1 Absolute Basos (auto) 0.1 Absolute Nucleated RBC 0.0 Nucleated RBC % 0.0 C-Reactive Protein 73.84 H Microbiology 06/22/19 15:23 Gram Stain - Final Body Fluid - Pleura, Lt Lung 06/16/19 10:45 Aerobic Blood Culture - Final Blood Venous No Growth Day 5 Anaerobic Blood Culture - Final No Growth Day 5 06/16/19 10:40 Aerobic Blood Culture - Final Blood Venous No Growth Day 5 Anaerobic Blood Culture - Final No Growth Day 5 06/16/19 17:48 Gram Stain - Final Misc Fluid (See Comment) - Abscess Body Fluid Culture - Final Citrobacter Braakii Prevotella Buccae 06/16/19 21:20 Nasal Screen MRSA (PCR) - Final Nasal Mrsa Not Detected 06/14/19 20:10 Stool Gross Appearance - Final Stool C. difficile DNA Amplification - Final 027 Presumptive NEGATIVE Toxigenic C.diff POSITIVE Assessment: 1. C diff colitis. Reports that stools have been loose to soft, but only a few a day. Afebrile and leukocytosis is trending down. 2. Intra abdominal abscess. S/P US guided drain, continues to have purulent drainage from the pigtail drain. There is an ABD wound at the previous drain site, that continues to have a small amount of drainage. Abscess drainage with citrobacter Braakii, and Prevotella Buccae. Blood cultures with no growth on day 5. Afebrile and leukocytosis is improving. 3. Pleural effusion. S/P thoracentesis yesterday. Fluid was clear. No organisms seen in preliminary culture. Plan: Continue cefepime 2 gm IV Q12hrs and flagyl 500 mg IV Q8hrs, will need 4 weeks of IV ABX. Day 06/20. Continue Vancomycin 125 mg by mouth 4 times daily day 14. Plan for PICC line placement today. He will be discharged home on cefepime 2 gm IV Q12H 3 weeks and Flagyl 500 mg PO TID for 2 weeks. Weekly labs while on IV ABX: CBC, CMP, and CRP. Followup with ID in 2-3 weeks after discharge. He should have a CT scan in about 3 weeks, prior to the completion of the IV ABX. 30 minutes floor time: >50% face to face with patient regarding antibiotic treatments and followup recommendations. Will call the office for fever, chills , or diarrhea.
--- NOTE | 2019-06-23 15:40 | PN ---
Progress Note - Progress Note Date of Service: 06/23/19 SOAP: Subjective: Pt seen and exmained. Feeling better today/ Breathing easier. tolerating limited diet. pos BM; no abdo pain Objective: Temp Pulse Resp BP Pulse Ox 98.5 F 125 18 128/77 93 06/23/19 11:48 06/23/19 11:48 06/23/19 13:01 06/23/19 11:48 06/23/19 11:48 UO fair. 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
[2019-06-24] MEDS: Heparin VIAL(*) 5000 UNITS/ML VIAL (FIVE THOUSAND) SUBCUT SCH ×3 (05:43→21:36)
[2019-06-24 06:42] LABS: ABS Eosinophils 0.1 10^3/ul (0-0.6); ABS Lymphocytes 1.6 10^3/ul (1.0-4.8); ABS Monocytes 1.1 10^3/ul (0-0.8); ABS Neutrophils 11.6 10^3/ul (1.5-7.7); Eosinophil % 0.6 %; Hematocrit 28 % (42-52); Hemoglobin 9.1 g/dL (14.0-18.0); Lymphocyte % 11.1 %; Mean Corpuscular HGB Conc 33 g/dL (31-36); Mean Corpuscular Hemoglobin 28 pg (27-31); Mean Corpuscular Volume 84 fL (80-94); Platelet Count 385 10^3/uL (150-450); Red Blood Count 3.26 10^6 /uL (4.18-5.48); Red Cell Distribution Width 15 % (10-15); White Blood Count 14.3 10^3/uL (3.5-10.8)
[2019-06-24 07:07] LABS: BUN/Creatinine Ratio 6.8 (8-20); Calcium 7.9 mg/dL (8.6-10.3); EGFR African American 239.5 (>60); EGFR Non-African American 197.9 (>60); Magnesium 1.7 mg/dL (1.9-2.7); Phosphorus 3.6 mg/dL (2.5-5.0); Potassium 3.8 mmol/L (3.5-5.0)
[2019-06-24] MEDS: metroNIDAZOLE IV 500 MG/100ML* 500 MG/100 ML BAG IVPB SCH ×3 (07:53→23:59)
[2019-06-24] MEDS ORDERED: Magnesium Sulfate 1 GM IV* 1 GM/100 ML BAG IV ONE (07:57)
[2019-06-24] MEDS ORDERED: NS 0.9% 1000 ML** 1,000 ML IV SCH (08:00)
[2019-06-24] MEDS: Citalopram TAB* 10 MG PO SCH ×2 (08:09→12:02)
[2019-06-24] MEDS: Pantoprazole TAB * 40 MG TAB PO SCH ×2 (08:09→12:02)
[2019-06-24] MEDS: Potassium Chlor TAB* 10 MEQ TAB.ER PO SCH ×3 (09:13→21:29)
[2019-06-24] MEDS: Vancomycin CAP* 125 MG CAP PO SCH ×4 (09:19→21:29)
--- NOTE | 2019-06-24 09:20 | PN ---
Progress Note - Progress Note Date of Service: 06/24/19 SOAP: Subjective: Pt seen and examined. Continues to feel well tolerating limited diet. no abdo pain Objective: Temp Pulse Resp BP Pulse Ox 98.4 F 93 18 132/78 92 06/24/19 07:27 06/24/19 07:27 06/24/19 08:00 06/24/19 07:27 06/24/19 07:27 abdo: soft/ ND/ NT thick, bilious drainage at RUQ site- scant pigtial min drainage Assessment: Duodenal leak/fistula after large perf ulcer; not high output retroper abscess draining- small on recent CT scan- though not resolved Plan: upsize perinephric drain abx wound care to duo fistula Possible d/c tomorrow
[2019-06-24] MEDS: Cefepime* 2 GM in Dextrose 50mL Q12H (Duplex) IV SCH ×2 (09:48→21:30)
[2019-06-24] MEDS: HYDROmorphone INJ1* 1 MG/ML SYRINGE IV PRN ×4 (13:21→23:56)
[2019-06-25] MEDS: HYDROmorphone INJ1* 1 MG/ML SYRINGE IV PRN ×2 (03:55→21:30)
[2019-06-25] MEDS: Heparin VIAL(*) 5000 UNITS/ML VIAL (FIVE THOUSAND) SUBCUT SCH ×2 (06:26→21:30)
[2019-06-25] MEDS: NS 0.9% 1000 ML** 1,000 ML IV SCH ×2 (08:00→20:17)
[2019-06-25] MEDS: metroNIDAZOLE IV 500 MG/100ML* 500 MG/100 ML BAG IVPB SCH ×2 (08:00→18:40)
[2019-06-25 08:33] LABS: ABS Eosinophils 0.1 10^3/ul (0-0.6); ABS Lymphocytes 1.8 10^3/ul (1.0-4.8); ABS Neutrophils 13.6 10^3/ul (1.5-7.7); Eosinophil % 0.4 %; Hematocrit 31 % (42-52); Hemoglobin 10.1 g/dL (14.0-18.0); Lymphocyte % 11.2 %; Mean Corpuscular HGB Conc 33 g/dL (31-36); Mean Corpuscular Hemoglobin 28 pg (27-31); Mean Corpuscular Volume 84 fL (80-94); Mean Platelet Volume 6.8 fL (7.4-10.4); Platelet Count 527 10^3/uL (150-450); Red Blood Count 3.63 10^6 /uL (4.18-5.48); Red Cell Distribution Width 15 % (10-15); White Blood Count 16.6 10^3/uL (3.5-10.8)
[2019-06-25] MEDS: Citalopram TAB* 10 MG PO SCH (08:56)
[2019-06-25] MEDS: Pantoprazole TAB * 40 MG TAB PO SCH (08:56)
[2019-06-25] MEDS: Vancomycin CAP* 125 MG CAP PO SCH ×3 (08:56→20:38)
[2019-06-25] MEDS: Potassium Chlor TAB* 10 MEQ TAB.ER PO SCH ×2 (08:56→20:38)
[2019-06-25] MEDS: Cefepime* 2 GM in Dextrose 50mL Q12H (Duplex) IV SCH ×2 (08:56→18:00)
--- NOTE | 2019-06-25 12:51 | PN ---
Progress Note - Progress Note Date of Service: 06/25/19 SOAP: Subjective: Pt seen and examined. Continues to feel well No abdo pain. 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
[2019-06-25] MEDS ORDERED: Iohexol 300* (CONTRAST) 10 ML SDV IV ONE (13:20)
[2019-06-25] MEDS ORDERED: Midazolam* 1 MG/ML 2 ML VIAL (2 MG) ONE (16:52)
[2019-06-25] MEDS ORDERED: fentaNYL* 50 MCG/ML 2 ML VIAL (100 MCG VIAL) ONE (16:52)
[2019-06-26] MEDS: HYDROmorphone INJ1* 1 MG/ML SYRINGE IV PRN ×3 (00:03→05:31)
[2019-06-26] MEDS: Vancomycin CAP* 125 MG CAP PO SCH ×2 (00:03→08:49)
[2019-06-26] MEDS: metroNIDAZOLE IV 500 MG/100ML* 500 MG/100 ML BAG IVPB SCH ×2 (00:04→08:34)
[2019-06-26] MEDS: Acetaminophen TAB* 325 MG PO PRN (02:22)
[2019-06-26] MEDS: Heparin VIAL(*) 5000 UNITS/ML VIAL (FIVE THOUSAND) SUBCUT SCH (05:30)
[2019-06-26] MEDS: Pantoprazole TAB * 40 MG TAB PO SCH (08:49)
[2019-06-26] MEDS: Citalopram TAB* 10 MG PO SCH (08:49)
[2019-06-26] MEDS: Potassium Chlor TAB* 10 MEQ TAB.ER PO SCH (08:49)
[2019-06-26] MEDS: Cefepime* 2 GM in Dextrose 50mL Q12H (Duplex) IV SCH (09:58)
[2019-06-26 11:22] VITALS: BP 119/71
--- NOTE | 2019-07-21 17:31 | DS ---
CC: [facility]; Dr. Davidson Contreras; Dr. Rasta Levy * DISCHARGE SUMMARY: DATE OF ADMISSION: 06/16/19 DATE OF DISCHARGE: 06/26/19 PRIMARY CARE PHYSICIAN: Davidson Contreras MD HOSPITAL COURSE: Mr. Cardenas is a 59-year-old gentleman who was admitted to our service on 06/16/19 after a recent admission for perforated duodenal ulcer, who presented with nausea and vomiting as well as diarrhea and dehydration. Please see H and P for further details. The patient had been on antibiotics, had had recent BENNIE drains from the time of surgery that were removed, and presented with these complaints and underwent a CT scan of the abdomen and pelvis. CAT scan of the abdomen and pelvis showed a perinephric collection on the right and the patient underwent drainage procedure with the interventional radiology department. Please see their separate note for details. This occurred on 06/16/19 and drainage was followed along with a microbiology of this which was consistent with Citrobacter braakii and Prevotella. The patient had been followed by Infectious Disease throughout this time. The hospitalist service was consulted during the patient's hospital stay. He was noted to have drainage that appeared purulent versus bilious from the right upper quadrant where he had previous BENNIE drainage. The patient was on a p.o. diet and tolerating this fairly well. He was noted to have no obstruction at the gastrojejunostomy on his studies. He did undergo a repeat CT scan on where it showed interval right pleural effusion and a persistent abscess that was only slightly smaller. The patient underwent an attempt at a thoracentesis on the right by the surgical staff and then underwent a repeat with the interventional radiology group. Fluid showed no growth and the patient was observed, diet advanced. I decided to get a third CAT scan on 06/25/19 to see if it showed resolution of the perinephric abscess. When this still persisted, the radiology department upsized a drain at the site and was able to draw additional pus out that was sent for culture again, this time growing out elena as well as lactobacillus. With the drain in place, drain teaching was given to the patient. He was maintained on antibiotics and was for plan discharge home with drainage and antibiotics and followup in our offices. On day of discharge, he was stable and he was sent home with his , with the antibiotics via PICC line, on a soft diet, and with a perinephric drain in place. He had scant drainage from the right upper quadrant opening site and this was showing signs of healing. This was dressed with antibiotic ointment. The patient has an upcoming trip that he wanted to take with his family. We felt confident that the patient would get good care with his as far as the drainage was concerned and the antibiotics. I gave them my cellphone number if they had any questions while they are on vacation with a plan of close followup when the patient returned. [id number]/CPS #: [id number] MTDD
== END 2019-06-26 12:05 | disposition home health service (06) | DRG 721 ==
LOC: SSU 17:49 → OBSVTOIN 06-16 12:25 → ICU 06-16 21:15 → SSU 06-18 08:55
PROVIDERS: ADMIT Surgery; ATTEND Surgery
PROC: 0W9G30Z Drainage of Peritoneal Cavity with Drainage Device, Percutaneous Approach (ICD-10-PCS; 2019-06-18)
PROC: 0W993ZZ Drainage of Right Pleural Cavity, Percutaneous Approach (ICD-10-PCS; 2019-06-21)
PROC: 0W993ZZ Drainage of Right Pleural Cavity, Percutaneous Approach (ICD-10-PCS; principal; 2019-06-23)
PROC: 02HV33Z Insertion of Infusion Device into Superior Vena Cava, Percutaneous Approach (ICD-10-PCS; 2019-06-23)
DX: K68.11 Postprocedural retroperitoneal abscess (principal); A41.9 Sepsis, unspecified organism; A04.72 Enterocolitis due to Clostridium difficile, not specified as recurrent; J90 Pleural effusion, not elsewhere classified; K31.6 Fistula of stomach and duodenum; M17.12 Unilateral primary osteoarthritis, left knee; Z96.651 Presence of right artificial knee joint; E86.0 Dehydration; E87.6 Hypokalemia; E83.42 Hypomagnesemia; Z88.1 Allergy status to other antibiotic agents
CPT/HCPCS: 20605; 32555; 36415; 49406; 74177; 74246; 75989; 76775; 77002; 80048; 80053; 83605; 83735; 84100; 84132; 84134; 85014; 85018; 85025; 85027; 85610; 86140; 87040; 87070; 87076; 87077; 87106; 87186; 87205; 87493; 87641; 88112; A9270-GY; C1751; J0692; J1170; J1644; J2250; J2270; J2405; J2543; J2765; J3010; J3475; J3480; Q9967

== ENCOUNTER 2023-11-27 05:37 | Inpatient (IN) ==
[2023-11-27] MEDS ORDERED: Lactated Ringers 1000 ml BAG 1,000 ML IV SCH (06:00)
[2023-11-27] MEDS ORDERED: Buffered Lidocaine 1% SYRIN 1 ml INTRADERM ONE (06:00)
[2023-11-27 06:27] LABS: Rapid COVID-19 Molecular Undetected (Undetected)
[2023-11-27] MEDS ORDERED: Propofol 10 MG/ML 20 ML BTL ONE ×2 (06:51→09:09)
[2023-11-27] MEDS ORDERED: Lidocaine 2% PF 5 ML VIAL ONE (06:51)
[2023-11-27] MEDS ORDERED: ceFAZolin 2 GM PREMIX 2 GM/50 ML BAG ONE (06:52)
[2023-11-27] MEDS ORDERED: Midazolam 2 mg/2 ml VIAL 1 mg/ml 2 ml VIAL (2 mg) ONE ×2 (06:52→07:45)
[2023-11-27] MEDS ORDERED: Tranexamic Acid 1 GM/100ML BAG 2,000 MG/200 ML BAG IV ONE (06:52)
[2023-11-27] MEDS ORDERED: Buffered Lidocaine 1% SYRIN 1 ml ONE (06:53)
[2023-11-27] MEDS ORDERED: KETAMINE HCL 10 MG/ML 20 ml VIAL (200 MG) ONE (06:55)
[2023-11-27] MEDS ORDERED: Phenylephrine IV 10 MG/ML 1 ml VIAL ONE (06:59)
[2023-11-27] MEDS ORDERED: ROPIVACAINE 5 MG/ML 30 ML BTL (0.5%) ONE (07:46)
[2023-11-27] MEDS ORDERED: Acetaminophen IV 1 GM/100ML 1,000 MG/100 ML BAG IV ONE (08:00)
[2023-11-27] MEDS ORDERED: Ondansetron 4 mg VIAL 2 MG/ML 2 ml VIAL ONE (08:06)
[2023-11-27] MEDS ORDERED: Dexamethasone IV 4 MG/ML VIAL 1 ml VIAL ONE (08:06)
[2023-11-27] MEDS ORDERED: fentaNYL 100 mcg/2 ml 50 MCG/ML VIAL ONE (08:58)
[2023-11-27] MEDS ORDERED: Acetaminophen IV 1 GM/100ML 1,000 MG/100 ML BAG IV PRN (09:12)
[2023-11-27] MEDS ORDERED: fentaNYL 100 mcg/2 ml 50 MCG/ML VIAL IV PRN (09:12)
[2023-11-27] MEDS ORDERED: Ondansetron 4 mg VIAL 2 MG/ML 2 ml VIAL IV PRN ×2 (09:12→10:14)
[2023-11-27] MEDS ORDERED: HYDROmorphone 1 MG/1 ML SYRINGE IV PRN (09:12)
[2023-11-27] MEDS ORDERED: Naloxone 0.4 mg VIAL 0.4 mg/ml 1 ml VIAL IV PRN (09:12)
[2023-11-27] MEDS ORDERED: Glycopyrrolate IV 0.2 MG/ML 1 ML VIAL ONE ×2 (09:21→09:43)
[2023-11-27] MEDS ORDERED: Magnesium Hydroxide LIQ 30 ML UDC PO PRN (10:14)
[2023-11-27] MEDS ORDERED: Ondansetron ODT 4 mg TAB 4 MG TAB PO PRN (10:14)
[2023-11-27] MEDS ORDERED: Lactulose 30 ml UDC PO PRN (10:14)
[2023-11-27] MEDS ORDERED: Morphine 2 MG/ML SYRINGE IV PRN (10:14)
[2023-11-27] MEDS ORDERED: Bupivacaine-MPF SPINAL 7.5 MG/ML - 2ML AMP ONE (11:11)
[2023-11-27] MEDS: Lactated Ringers 1000 ml BAG 1,000 ML IV SCH ×2 (12:55→22:20)
[2023-11-27] MEDS: ceFAZolin 1 GM ADVAN 1 GM in NS 0.9% 50 ML 50 ML IVPB SCH (16:06)
[2023-11-27] MEDS: Magnesium Hydroxide LIQ 30 ML UDC PO SCH (21:36)
[2023-11-28] MEDS: ceFAZolin 1 GM ADVAN 1 GM in NS 0.9% 50 ML 50 ML IVPB SCH ×2 (00:09→08:42)
[2023-11-28 05:56] LABS: Platelet Count 190 10^3/uL (150-450)
[2023-11-28 06:09] LABS: Hematocrit 33.6 % (38-53); Hemoglobin 11.8 g/dL (13.2-16.3); Mean Platelet Volume 7.7 fL (7.5-11.2)
[2023-11-28 06:16] LABS: Calcium 8.6 mg/dL (8.6-10.3); Creatinine, Serum 0.74 mg/dL (0.67-1.17); Potassium 4.2 mmol/L (3.5-5.0); eGFR CKD-EPI 102.4 (>60)
[2023-11-28] MEDS: Magnesium Hydroxide LIQ 30 ML UDC PO SCH (08:52)
[2023-11-28] MEDS ORDERED: Vitamin THERAPEUTIC TAB PO SCH (09:00)
[2023-11-28 09:52] VITALS: BP 117/69
== END 2023-11-28 13:40 | disposition home or self-care (01) | DRG 301 ==
LOC: AA 05:37 → SSU 10:14
PROVIDERS: ADMIT Orthopaedic Surgery Adult Reconstructive Orthopaedic Surgery; ATTEND Orthopaedic Surgery Adult Reconstructive Orthopaedic Surgery